=== PATIENT | male | born 1935 | race American Indian/Alaskan Native ===

== ENCOUNTER 2016-04-25 14:36 | Inpatient (IN) | payer MEDICARE, OTHER ==
[2016-04-25 14:50] VITALS: BMI 39.5
[2016-04-25 16:37] LABS: BASO # 0.01 K/mm3 (0.0-2.0); BASO % 0.3 % (0.0-3.0); EOS # 0.1 (0.0-0.7); EOS % 1.9 % (1.5-5.0); GRAN # 1.93 (1.4-6.5); GRAN % 62.8 % (50.0-68.0); LYMPH # 0.8 (1.2-3.4); LYMPH % 26.6 % (22.0-35.0); MEAN CELL VOLUME 87.7 fL (80.0-105.0); MEAN CORPUSCULAR HEMOGLOBIN 27.6 pg (25.0-35.0); MEAN CORPUSCULAR HGB CONC 31.5 g/dl (31.0-37.0); MEAN PLATELET VOLUME 9.9 fl (7.0-11.0); MONO # 0.3 (0.1-0.6); MONO % 8.4 % (1.0-6.0); RED CELL DISTRIBUTION WIDTH 19.6 % (11.5-14.5)
[2016-04-25 16:38] LABS: INR 1.56 (0.93-1.08); PARTIAL THROMBOPLASTIN TIME 31.5 Seconds (23.7-30.8)
[2016-04-25 16:39] LABS: ADD MANUAL DIFF? NO; PLATELET COUNT 60 10^3/uL (120.0-450.0)
[2016-04-25 16:40] LABS: WHITE BLOOD COUNT 3.1 10^3/ul (4.5-11.0)
[2016-04-25 16:46] LABS: URINE BILIRUBIN NEGATIVE (NEGATIVE); URINE BLOOD NEGATIVE (NEGATIVE); URINE GLUCOSE (UA) NEGATIVE (NEGATIVE); URINE KETONE NEGATIVE (NEGATIVE); URINE LEUKOCYTE ESTERASE NEGATIVE Leu/uL (NEGATIVE); URINE PROTEIN NEGATIVE mg/dL (<30 mg/dL); URINE UROBILINOGEN 0.2 E.U./dL (<1 E.U./dL)
--- NOTE | 2016-04-25 16:46 | ED PDOC ---
Arrival/HPI - History of Present Illness Time/Duration: Prior to Arrival, < week Symptom Course: Unchanged - General Chief Complaint: Lower Extremity Problem/Injury Time Seen by Provider: 04/25/16 15:06 - History of Present Illness Narrative History of Present Illness (Text): 04/25/16 16:22 This is an 80 year old male with a PMH notable for PVD, MD, CAD, DVT with IVC filter, cardiomyopathy, chronic LE ulcers, left fingers traumatic amputation presenting to the ED for swelling in his legs for the last 3 days. The patient notes that he routinely wears compression stockings, however, he has not worn them for the last 2 days. The patient reports that 3 days ago his legs were swollen and his compression stocking were wrapped around his ankles. The patient has a history of LE cellulitis and skin graft placement. He has been cared for by Dr. Hill. His senior clinical project manager is Dr. Holt. PMD: Dr. Wynn PMHx: PVD, MD, CAD, DVT with IVC filter, cardiomyopathy, chronic LE ulcers, left fingers traumatic amputation PSHx: IVC filter placement, left fingers amputation Family Hx: sister had lung cancer, no Hx of vascular disease Social: Former smoker of 30 years, stopped 8 years ago. Rarely consumes alcohol. Denies other drug use. 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 (Tyler Lopes ) Past Medical History - Provider Review Nursing Documentation Reviewed: Yes - Travel History Have you recently traveled outside [place] w/in the past 3 mons?: No - Infectious Disease Hx of Infectious Diseases: None - Tetanus Immunization Tetanus Immunization: Unknown - Cardiac Hx Cardiac Disorders: Yes Hx Congestive Heart Failure: Yes Hx Hypertension: Yes - Pulmonary Hx Respiratory Disorders: No Other/Comment: Former smoker - Neurological Hx Neurological Disorder: No - HEENT Hx HEENT Disorder: No - Renal Hx Renal Disorder: No - Endocrine/Metabolic Hx Endocrine Disorders: No - Hematological/Oncological Hx Blood Disorders: No Hx AIDS: No - Integumentary Hx Dermatological Disorder: Yes Other/Comment: BLE wounds - tx by Dr Hill - Musculoskeletal/Rheumatological Hx Falls: Yes - Gastrointestinal Hx Gastrointestinal Disorders: No - Genitourinary/Gynecological Hx Genitourinary Disorders: No Hx Reproductive Disorders: No - Psychiatric Hx Psychophysiologic Disorder: No Hx Substance Use: No - Surgical History Hx Amputation: Yes (tramatic left hand amputation) - Anesthesia Hx Anesthesia: Yes - Suicidal Assessment Feels Threatened In Home Enviroment: No - Patient History Narrative Patient History: This is an 80 year old male with a PMH notable for PVD, MD, CAD, DVT with IVC filter, cardiomyopathy, chronic LE ulcers, left fingers traumatic amputation presenting to the ED for swelling in his legs for the last 3 days. (Tyler Lopes) Family/Social History - Physician Review Nursing Documentation Reviewed: Yes Family/Social History: No Known Family HX Smoking Status: Former Smoker Hx Alcohol Use: Yes (2-3 SHOTS OF HARD LIQOUR DAILY H/O) Hx Substance Use: No Allergies/Home Meds Allergies/Adverse Reactions: Allergies No Known Allergies Allergy (Verified 04/25/16 14:45) Home Medications: Home Meds Medication Instructions Recorded Confirmed Amiodarone [Cordarone] 200 mg PO DAILY 07/30/15 04/25/16 Carvedilol [Coreg] 3.125 mg PO BID 07/30/15 04/25/16 Isosorbide Mononitrate [Isosorbide 60 mg PO DAILY 07/30/15 04/25/16 Mononitrate ER] Ammonium Lactate 12% [Lac-Hydrin 1 applic EXT DAILY 04/25/16 04/25/16 12% Lotion (225 g)] Enalapril Maleate [Vasotec] 5 mg PO DAILY 04/25/16 04/25/16 Ondansetron [Zofran] 4 mg PO PRN PRN 04/25/16 04/25/16 Warfarin [Coumadin] 5 mg PO 1800 04/25/16 04/25/16 oxyCODONE/Acetaminophen [Percocet 2.5 mg PO Q12 PRN 04/25/16 04/25/16 5/325 mg Tab] Review of Systems - Physician Review All systems were reviewed & negative as marked: Yes - Review of Systems Constitutional: absent: Fatigue, Weight Change, Fevers Eyes: absent: Vision Changes ENT: absent: Hearing Changes, Tinnitus Respiratory: absent: SOB, Cough, Wheezing Cardiovascular: Edema. absent: Chest Pain, Palpitations, Calf Pain, OROZCO, Syncope Gastrointestinal: absent: Abdominal Pain Neurological: absent: Headache, Dizziness Physical Exam Vital Signs Reviewed: Yes Temperature: Afebrile Blood Pressure: Hypotensive Pulse: Regular Respiratory Rate: Normal Appearance: Positive for: Well-Appearing, Non-Toxic Pain Distress: None Mental Status: Positive for: Alert and Oriented X 3 - Systems Exam Head: Present: Atraumatic, Normocephalic Pupils: Present: PERRL Extroacular Muscles: Present: EOMI. No: Entrapment Conjunctiva: Present: Normal. No: Injected Mouth: Present: Moist Mucous Membranes. No: Dry Respiratory/Chest: Present: Clear to Auscultation, Good Air Exchange. No: Respiratory Distress, Accessory Muscle Use, Rales Cardiovascular: Present: Normal S1, S2, Irregular Rhythm. No: Regular Rate and Rhythm, Murmurs Abdomen: Present: Normal Bowel Sounds. No: Tenderness, Distention, Peritoneal Signs Upper Extremity: Present: Normal Inspection, Edema (trace pitting edema). No: Cyanosis Lower Extremity: Present: Edema (3+ pitting edema distal to knee, 2+ pitting to the hip), Neurovascularly Intact. No: Normal Inspection, CALF TENDERNESS Neurological: Present: GCS=15, CN II-XII Intact, Speech Normal Skin: Present: Warm, Dry, Normal Color. No: Rashes Psychiatric: Present: Alert, Oriented x 3 Vital Signs Temp Pulse Resp BP Pulse Ox 04/25/16 19:28 88 17 108/61 97 04/25/16 17:07 112/54 L 04/25/16 16:56 111/66 04/25/16 16:40 90 116/60 100 04/25/16 14:46 97.6 F 90 18 98/58 L 97 Medical Decision Making - RAD Interpretation Sheep Killer: ED Physician, Radiologist - EKG Interpretation Interpreted by ED Physician: Yes Type: 12 lead EKG ED Course and Treatment: Patient Seen With Resident: In agreement with resident note which contains more details about the patient. Patient was seen and evaluated with resident. Came up with plan and treatment together. (Deep Jose DO) 04/25/16 16:53 Impression: This is an 80 year old male with a PMH notable for PVD, MD, CAD, DVT with IVC filter, cardiomyopathy, chronic LE ulcers, left fingers traumatic amputation presenting to the ED for swelling in his legs for the last 3 days. The patient clinically appears volume overloaded. Pitting edema in b/l LE. Differential: Edema CHF, Chronic Venous Insufficiency Plan: CBC, CMP, BNP EKG Lasix IV PT, PTT Prior Visits: 02/18/16- lung mass, syncope 02/24/16- MD, lung mass, snycope 01/26/16- Ankel ulcer, LE cellulitis 07/30/15- A-fib Progress Note: Patient seen and examined at bedside. The patient is volume overload. The patient was given a dose of IV lasix for volume overload correction. Initial CMP hemolized and pending re-peat. The patient's pressure has been borderline hypotensive. He will be monitored closely following the lasix administration. 04/25/16 18:03 Patient tolerated lasix well. Clinically stable at this time. Fluid restriction started. Patient found to have extensive DVT RLE. Therapeutic heparin started for bridge to therapeutic INR. Dr. Wynn is covered by the hospitalist team for admission. The resource coordinator was notified and the patient was admitted. Dr. Wynn is aware that his patient is admitted. ( Tyler Lopes) - Lab Interpretations Lab Results: 04/25/16 16:10 04/25/16 16:40 Lab Results 04/25/16 16:40: Sodium 136, Potassium 5.0, Chloride 102, Carbon Dioxide 26, Anion Gap 13, BUN 25 H, Creatinine 1.3, Est GFR ( Amer) > 60, Est GFR ( Non-Af Amer) 53, Random Glucose 91, Calcium 8.7, Total Bilirubin 0.6, AST 35, ALT 31, Alkaline Phosphatase 47, Lactate Dehydrogenase 846 H, Total Creatine Kinase 174, Troponin I < 0.01, NT-Pro-B Natriuret Pep 703 H, Total Protein 6.6, Albumin 3.4, Globulin 3.2, Albumin/Globulin Ratio 1.1 04/25/16 16:30: Urine Color Yellow, Urine Appearance Clear, Urine pH 6.0, Ur Specific [place] 1.010, Urine Protein Negative, Urine Glucose (UA) Negative, Urine Ketones Negative, Urine Blood Negative, Urine Nitrate Negative, Urine Bilirubin Negative, Urine Urobilinogen 0.2, Ur Leukocyte Esterase Negative 04/25/16 16:10: WBC 3.1 L D, RBC 3.08 L, Hgb 8.5 L, Hct 27.0 L, MCV 87.7, MCH 27.6, MCHC 31.5, RDW 19.6 H, Plt Count 60 L, MPV 9.9, Gran % 62.8, Lymph % (Auto ) 26.6, [place] % (Auto) 8.4 H, Eos % (Auto) 1.9, Baso % (Auto) 0.3, Gran # 1.93, Lymph # 0.8 L, [place] # 0.3, Eos # 0.1, Baso # 0.01, PT 16.8 H, INR 1.56 H, APTT 31.5 H - RAD Interpretation Narrative RAD Interpretations (Text): 04/25/16 17:00 HISTORY: CHF COMPARISON: Chest x-ray performed 02/19/16 TECHNIQUE: Chest, one view. FINDINGS: Examination limited by habitus, hypoinflation, and patient obliquity. LUNGS: No focal consolidation. Right perihilar mass previously described is not appreciated on the current examination. Please note that chest x-ray has limited sensitivity for the detection of pulmonary masses. PLEURA: No significant pleural effusion identified. No definite pneumothorax . CARDIOVASCULAR: Cardiomegaly. Atherosclerotic calcifications of the aorta. OSSEOUS STRUCTURES: Degenerative changes. VISUALIZED UPPER ABDOMEN: Unremarkable. OTHER FINDINGS: None. IMPRESSION: Cardiomegaly. 04/25/16 17:27 LE Duplex Veins: Left LE: No DVT Right LE: Extensive DTV (Tyler Lopes) Radiology Orders: 04/25/16 15:48 CHEST PORTABLE [RAD] Stat 04/25/16 16:47 DUPLEX LOWER EXTRM VEIN BILAT [US] Routine - EKG Interpretation EKG Interpretation (Text): 04/25/16 16:59 A-Fib, septal infarct age indetermined (Tyler Lopes) - Medication Orders Current Medication Orders: Enoxaparin Sodium (Lovenox) 120 mg SC Q12H PAT PRN Reason: Protocol Last Admin: 04/25/16 18:16 Dose: 120 MG Subcutaneous Administrations Document 04/25/16 18:16 SF (Rec: 04/25/16 18:17 SF [id number]) Injection Site MAR Injection Site Left Abdomen Charges for Administration # of Subcutaneous Administrations 1 Discontinued Medications Furosemide (Lasix) 40 mg IVP STAT STA Stop: 04/25/16 16:44 Last Admin: 04/25/16 16:56 Dose: 40 MG MAR Blood Pressure Document 04/25/16 16:56 SF (Rec: 04/25/16 16:56 SF [id number]) Blood Pressure Blood Pressure (100/60-150/90) 111/66 IVP Administration Document 04/25/16 16:56 SF (Rec: 04/25/16 16:56 SF [id number]) Charges for Administration # of IVP Administrations 1 Disposition/Present on Arrival - Present on Arrival Any Indicators Present on Arrival: Yes History of DVT/PE: Yes History of Uncontrolled Diabetes: No Urinary Catheter: No History of Decub. Ulcer: No History Surgical Site Infection Following: None - Disposition Have Diagnosis and Disposition been Completed?: Yes Disposition Time: 17:00 Patient Plan: Admission - Disposition Diagnosis: Edema extremities, Atrial fibrillation, DVT (deep venous thrombosis) Disposition: HOME/ ROUTINE Patient Problems: Current Active Problems Problem Status Diagnosed Atrial fibrillation Acute DVT (deep venous thrombosis) Acute Edema extremities Acute Condition: FAIR Discharge Instructions (ExitCare): Heart Failure (ED)
[2016-04-25 16:47] LABS: URINE APPEARANCE CLEAR (CLEAR); URINE COLOR YELLOW (YELLOW)
--- NOTE | 2016-04-25 16:50 | RAD ---
HISTORY: CHF COMPARISON: Chest x-ray performed 02/19/16 TECHNIQUE: Chest, one view. FINDINGS: Examination limited by habitus, hypoinflation, and patient obliquity. LUNGS: No focal consolidation. Right perihilar mass previously described is not appreciated on the current examination. Please note that chest x-ray has limited sensitivity for the detection of pulmonary masses. PLEURA: No significant pleural effusion identified. No definite pneumothorax . CARDIOVASCULAR: Cardiomegaly. Atherosclerotic calcifications of the aorta. OSSEOUS STRUCTURES: Degenerative changes. VISUALIZED UPPER ABDOMEN: Unremarkable. OTHER FINDINGS: None. IMPRESSION: Cardiomegaly.
[2016-04-25 17:17] LABS: ALB/GLOB RATIO 1.1 (1.1-1.8); ALKALINE PHOSPHATASE 47 U/L (38-133); ALT/SGPT 31 U/L (7-56); AST/SGOT 35 U/L (15-59); BILIRUBIN,TOTAL 0.6 mg/dL (0.2-1.3); BLOOD UREA NITROGEN 25 mg/dL (7-21); CALCIUM 8.7 mg/dL (8.4-10.5); CARBON DIOXIDE 26 mmol/L (21-33); CHLORIDE 102 mmol/L (98-107); GFR AFRICAN-AMERICAN > 60; GLUCOSE,RANDOM 91 mg/dL (70-110); SODIUM 136 mmol/L (132-148); TOTAL PROTEIN 6.6 g/dL (5.8-8.3)
[2016-04-25 17:48] LABS: TROPONIN I < 0.01 ng/mL
[2016-04-25] MEDS: Enoxaparin 120 mg Syringe SC SCH (18:16)
[2016-04-25] MEDS ORDERED: Sodium Chloride 0.9% 1,000 ML IV SCH (20:45)
--- NOTE | 2016-04-25 20:49 | CP.PCM.HP ---
<Dipak Weir - Last Filed: 04/26/16 00:19> History of Present Illness - History of Present Illness History of Present Illness: CC: Leg swelling x3 days HPI: This is an 80 yo AA M with PMH notable for PVD, IL 8 years prior, CAD, DVT with IVC filter, cardiomyopathy, chronic LE ulcers, and traumatic amputation of left fingers who presented to the ED for swelling in his legs x3 days. Per patient, he awoke 2 days ago to find his legs bilaterally swollen, despite keeping them raised at night, and was not able to pull up his compression stockings that he usually wears. He states the swelling was not present when he went to bed. The swelling has not progressed or improved over the last 2 days, so patient became anxious and presented to the ED. He denies shortness of breath, nausea, vomiting, dizziness, focal weakness, or pain in lower extremities. Does complain of some pain/discomfort along his right chest/flank region. He states he has never had LE swelling like this previously. 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 Wynn Present on Admission - Present on Admission Any Indicators Present on Admission: Yes History of DVT/PE: Yes History of Uncontrolled Diabetes: No Urinary Catheter: No Review of Systems - Constitutional Constitutional: absent: Chills, Fever, Weakness - EENT Eyes: absent: Blurred Vision, Change in Vision, Loss of Vision Ears: absent: Dizziness Nose/Mouth/Throat: absent: Dysphagia, Sore Throat, Neck Pain - Cardiovascular Cardiovascular: Chest Pain (soreness/discomfort along right inferior-lateral chest wall into right flank region). absent: Chest Pain with Activity, Dyspnea , Dyspnea on Exertion, Irregular Heart Rhythm, Pain Radiating to Arm/Neck/Jaw, Lightheadedness, Palpitations, Rapid Heart Rate, Syncope - Respiratory Respiratory: absent: Cough, Dyspnea, Hemoptysis, Pain on Inspiration - Gastrointestinal Gastrointestinal: absent: Abdominal Pain, Constipation, Diarrhea, Nausea, Vomiting - Genitourinary Genitourinary: Flank Pain (soreness/discomfort along right inferior-lateral chest wall into right flank region). absent: Difficulty Urinating, Dysuria, Hematuria - Musculoskeletal Musculoskeletal: Joint Swelling (bilaterally lower extremity edema from feet to above knees). absent: Neck Pain, Numbness, Radiating Pain into Limb - Integumentary Integumentary: Dry Skin, Skin Ulcer, Wounds (skin break on RLE posterior above heel). absent: Bleeding Lesions, Pruritus, Rash Additional comments: Skin changes, chronic, at baseline per patient - Neurological Neurological: absent: Dizziness, Numbness, Focal Weakness, Syncope, Weakness, Other Visual Disturbances - Psychiatric Psychiatric: absent: Anxiety - Endocrine Endocrine: absent: Fatigue, Palpitations Past Patient History - Infectious Disease Hx of Infectious Diseases: None - Tetanus Immunizations Tetanus Immunization: Unknown - Past Medical History & Family History Past Medical History?: Yes - Past Social History Smoking Status: Former Smoker - CARDIAC Hx Cardiac Disorders: Yes Hx Congestive Heart Failure: Yes Hx Hypertension: Yes - PULMONARY Hx Respiratory Disorders: No Other/Comment: Former smoker - NEUROLOGICAL Hx Neurological Disorder: No - HEENT Hx HEENT Problems: No - RENAL Hx Chronic Kidney Disease: No - ENDOCRINE/METABOLIC Hx Endocrine Disorders: No - HEMATOLOGICAL/ONCOLOGICAL Hx Blood Disorders: No Hx AIDS: No - INTEGUMENTARY Hx Dermatological Problems: Yes Other/Comment: BLE wounds - tx by Dr Hill - MUSCULOSKELETAL/RHEUMATOLOGICAL Hx Falls: Yes - GASTROINTESTINAL Hx Gastrointestinal Disorders: No - GENITOURINARY/GYNECOLOGICAL Hx Genitourinary Disorders: No Hx Reproductive Disorders: No - PSYCHIATRIC Hx Psychophysiologic Disorder: No Hx Substance Use: No - SURGICAL HISTORY Hx Amputation: Yes (tramatic left hand amputation) - ANESTHESIA Hx Anesthesia: Yes Meds Allergies/Adverse Reactions: Allergies Allergy/AdvReac Type Severity Reaction Status Date / Time No Known Allergies Allergy Verified 04/25/16 14:45 Physical Exam - Constitutional Appears: Well, Non-toxic, No Acute Distress - Head Exam Head Exam: ATRAUMATIC, NORMAL INSPECTION, NORMOCEPHALIC - Eye Exam Eye Exam: EOMI, Normal appearance. absent: Conjunctival injection, Scleral icterus Pupil Exam: absent: Irregular, Unequal - ENT Exam ENT Exam: Mucous Membranes Moist - Neck Exam Neck exam: Positive for: Full Rom. Negative for: Tenderness Additional comments: no JVD or hepatojugular reflex - Respiratory Exam Respiratory Exam: Clear to Auscultation Bilateral, NORMAL BREATHING PATTERN. absent: Accessory Muscle Use, Chest Wall Tenderness, Decreased Breath Sounds, Rales, Rhonchi, Wheezes, Respiratory Distress - Cardiovascular Exam Cardiovascular Exam: REGULAR RHYTHM, RRR, +S1, +S2. absent: Bradycardia, Tachycardia, Irregular Rhythm, JVD, +S4 - GI/Abdominal Exam GI & Abdominal Exam: Normal Bowel Sounds, Soft. absent: Diminished Bowel Sounds , Distended (obese, but not distended), Firm, Guarding, Hyperactive Bowel Sounds , Hypoactive Bowel Sounds, Organomegaly, Rigid, Tenderness - Rectal Exam Rectal Exam: Deferred - Extremities Exam Extremities exam: Positive for: joint swelling, pedal edema. Negative for: calf tenderness, normal capillary refill, normal inspection Additional comments: Bilateral lower extremity edema, R>L +3 pitting edema from feet to bottom 2/3rd of shins bilaterally, +2 from top 1/ 3rd of kirby to above knees Chronic skin changes along bilaterally lower extremities, darked/thickened patches of skin along bilateral posterior heels, dry and cracked skin throughout LEs Dressing covering skin break on RLE above ankle Shallow non-healing wound along anterior lateral portion of LLE above ankle, not actively bleeding or expressing discharge Unable to palpate pulses in bilateral LE - Back Exam Back exam: absent: CVA tenderness (L), CVA tenderness (R) - Neurological Exam Neurological exam: Alert, Oriented x3 Additional comments: Reports ambulating with cane, cane at bedside - Psychiatric Exam Psychiatric exam: Normal Affect, Normal Mood - Skin Skin Exam: Dry, Intact, Normal Color, Warm Additional comments: except as noted in Extremities exam Results - Vital Signs Recent Vital Signs: Last Vital Signs Temp 97.6 F 04/25/16 14:46 Pulse 88 04/25/16 19:28 Resp 17 04/25/16 19:28 BP 108/61 04/25/16 19:28 Pulse Ox 97 04/25/16 19:28 - Labs Result Diagrams: 04/25/16 16:10 04/25/16 16:40 Labs: Laboratory Results - last 24 hr 04/25/16 04/25/16 04/25/16 16:10 16:30 16:40 WBC 3.1 L D RBC 3.08 L Hgb 8.5 L Hct 27.0 L MCV 87.7 MCH 27.6 MCHC 31.5 RDW 19.6 H Plt Count 60 L MPV 9.9 Gran % 62.8 Lymph % (Auto) 26.6 [place] % (Auto) 8.4 H Eos % (Auto) 1.9 Baso % (Auto) 0.3 Gran # 1.93 Lymph # 0.8 L [place] # 0.3 Eos # 0.1 Baso # 0.01 PT 16.8 H INR 1.56 H APTT 31.5 H Sodium 136 Potassium 5.0 Chloride 102 Carbon Dioxide 26 Anion Gap 13 BUN 25 H Creatinine 1.3 Est GFR ( Amer) > 60 Est GFR (Non-Af Amer) 53 Random Glucose 91 Calcium 8.7 Total Bilirubin 0.6 AST 35 ALT 31 Alkaline Phosphatase 47 Lactate Dehydrogenase 846 H Total Creatine Kinase 174 Troponin I < 0.01 NT-Pro-B Natriuret Pep 703 H Total Protein 6.6 Albumin 3.4 Globulin 3.2 Albumin/Globulin Ratio 1.1 Urine Color Yellow Urine Appearance Clear Urine pH 6.0 Ur Specific [place] 1.010 Urine Protein Negative Urine Glucose (UA) Negative Urine Ketones Negative Urine Blood Negative Urine Nitrate Negative Urine Bilirubin Negative Urine Urobilinogen 0.2 Ur Leukocyte Esterase Negative Assessment & Plan - Assessment and Plan (Free Text) Assessment: This is an 80 yo AA M with PMH notable for PVD, IL 8 years prior, CAD, DVT with IVC filter, cardiomyopathy, chronic LE ulcers, and traumatic amputation of left fingers who presented to the ED for swelling in his legs x3 days. He was found to have extensive RLE DVT on US and is subtherapeutic on coumadin with an INR of 1.5. He is being admitted for persistent LE edema and RLE DVT requiring bridging anticoagulation until therapeutic on warfarin. Plan: 1) Bilateral LE edema -DVT vs Venous insufficiency vs arterial insufficiency vs CHF/fluid overload -Hx of PVD and LE ulcers, [facility] Dr[facility], will consult -Hx of DVT, elevated risk of coagulopathy given hx AFib and active metastatic cancer -LE US obtained noted extensive RLE DVT -INR subtherapeutic at 1.5, continue home warfarin and bridging with therapeutic (1mg/kg) Lovenox q12 -Platelets low at 60, may be 2/2 recent radiation therapy, Heme-onc consulted for recs on anticoagulation in the setting of low platetes -CTA to rule out PE -Lasix 40mg IV q12, 1x dose given in the ED; given borderline low-normal SBP, will gently hydrate with 50cc/hr NS to prevent hypotension while diuresing -Last Echo in 02/24/16, EF > 60% with normal LV fxn, will obtain repeat Echo to assess for possible new onset CHF -CXR obtained, poor visualization due to body habitus but does not appear to be fluid overloaded 2) CAD with prior [place] -continue home amlodipine and coreg, holding home imdur and vasotec due to low- normal blood pressures -repeat EKG and trop in AM 3) Afib subtherapeutic on Warfarin -continue home amlodipine and coreg -INR 1.5 in ED -Continuing home Warfarin, bridging with therapeutic Lovenox (1mg/kg) q12 -Given thrombocytopenia (platelets of 60), heme-onc consulted for anticoagulation recs 4) Thrombocytopenia -Platelets 60 on admission -Likely 2/2 radiation therapy -Type and screened, if develops acute bleed or platelets significantly decrease further, can consider transfusing platelets 5) Anemia -Hgb 8.5 on admission, baseline per prior charting is 10-11 -Stool occult ordered, f/u -Type and screened, if Hgb < 8 (due to pre-existing cardiovascular disease) can transfuse with pRBCs Dispo: Med/Surg as inpatient, pending input from Heme-onc and Podiatry, pending CTA, pending diuresis and further anticoagulation FEN: Heart-healthy low sodium, NS 50cc/hr Access: Peripheral IV Consults: Podiatry, Heme-onc Ppx: Avoid PPI/Pepcid due to thrombocytopenia, Warfarin/Therapeutic Lovenox covers for DVT Patient seen, reviewed, and discussed with attending, Dr. Guerra. - Date & Time Date: 04/26/16 Time: 00:19 Decision To Admit - Pt Status Changed To: Hospital Disposition Of: Inpatient Admission - Admit Certification Admit to Inpatient:: After my assessment, the patient will require hospitalization for at least two midnights. This is because of the severity of symptoms shown, intensity of services needed, and/or the medical risk in this patient being treated as an outpatient. - . Bed Request Type: Med/Surg <Petra Guerra - Last Filed: 04/26/16 05:57> Results - Vital Signs Recent Vital Signs: Last Vital Signs Temp 97.9 F 04/25/16 22:05 Pulse 96 H 04/25/16 22:05 Resp 18 04/25/16 23:17 BP 118/65 04/25/16 22:56 Pulse Ox 97 04/25/16 22:05 - Labs Result Diagrams: 04/25/16 16:10 04/25/16 16:40 Labs: Laboratory Results - last 24 hr 04/25/16 04/25/16 22:15 23:30 Blood Type A POSITIVE Blood Type Confirm A POSITIVE Antibody Screen Negative BBK History Checked No verified bt Attending/Attestation - Attestation I have personally seen and examined this patient.: Yes I have fully participated in the care of the patient.: Yes I have reviewed all pertinent clinical information: Yes Notes (Text): 04/26/16 05:56 Patient was seen when he was in bed # 6 in the ER. Agree with history , physical examination, assessment and plan.
[2016-04-25] MEDS ORDERED: Iohexol 350 MG/100 ML VIAL ONE (21:37)
[2016-04-25] MEDS: Oxycodone/Acetaminophen 5/325 mg Tab PO PRN (23:15)
--- NOTE | 2016-04-26 00:46 | CT ---
EXAM: CT Angiography Chest With Intravenous Contrast. CLINICAL HISTORY: 80 years old, male; Pain; Chest pain; Type not specified; Additional info: Dvt, subtherapteutic inr, right chest discomfort TECHNIQUE: Axial computed tomographic angiography images of the chest with intravenous contrast using pulmonary embolism protocol. This CT exam was performed using one or more of the following dose reduction techniques: automated exposure control, adjustment of the mA and/or kV according to patient size, and/or use of iterative reconstruction technique. MIP reconstructed images were created and reviewed. Coronal and sagittal reformatted images were created and reviewed. CONTRAST: 96 mL of OMNI 350 administered intravenously. COMPARISON: CT GUIDED LUNG BIOPSY 02/19/2016 5:20:17 PM FINDINGS: Pulmonary arteries: No evidence for large or central pulmonary embolism. Motion artifact and suboptimal opacification limits evaluation of smaller branches. Aorta: Thoracic aorta is atherosclerotic and mildly tortuous without aneurysm. Mild calcification of the aortic root. Lungs: There is a large mass within the superior aspect of the right lower lobe, measuring at least 7.2 x 5.0 CM on series 2, image 77. The mass measures at least 5.4 CM craniocaudal as well. There is associated destruction of the right sixth and seventh ribs as well as portions of the right sides of the right sixth and seventh thoracic vertebral bodies and the right-sided posterior elements. The possibility of invasion of the thoracic spinal canal at these levels cannot be excluded. Remainder of the lungs is clear. Pleural space: Unremarkable. No significant effusion. No pneumothorax. Heart: The heart is mildly enlarged. There is coronary artery calcification. Mild calcification of the mitral valve. No significant pericardial effusion. Mediastinum: The esophagus is normal. Thyroid: The thyroid is normal in size and position. Bones/joints: There are moderate to severe degenerative spine changes. Soft tissues: Unremarkable. Lymph nodes: There is no axillary adenopathy. No mediastinal or hilar adenopathy. Upper abdomen: Scans through the upper abdomen demonstrate no definite acute abnormalities. IMPRESSION: 1. There is a large mass within the superior aspect of the right lower lobe, measuring at least 7.2 x 5.0 CM on series 2, image 77. The mass measures at least 5.4 CM craniocaudal as well. There is associated destruction of the right sixth and seventh ribs as well as portions of the right sides of the right sixth and seventh thoracic vertebral bodies and the right-sided posterior elements. The possibility of invasion of the thoracic spinal canal at these levels cannot be excluded. 2. No evidence for large or central pulmonary embolism. Motion artifact and suboptimal opacification limits evaluation of smaller branches. 3. Additional incidental and/or chronic findings as described.
[2016-04-26] MEDS: Enoxaparin 120 mg Syringe SC SCH ×2 (05:23→17:28)
[2016-04-26 07:17] LABS: EOS # 0.1 (0.0-0.7); EOS % 2.3 % (1.5-5.0); GRAN % 60.8 % (50.0-68.0); HEMATOCRIT 27.7 % (42.0-52.0); LYMPH # 0.8 (1.2-3.4); LYMPH % 28.5 % (22.0-35.0); MEAN CELL VOLUME 87.1 fL (80.0-105.0); MEAN CORPUSCULAR HEMOGLOBIN 27.7 pg (25.0-35.0); MEAN CORPUSCULAR HGB CONC 31.8 g/dl (31.0-37.0); MEAN PLATELET VOLUME 9.7 fl (7.0-11.0); MONO # 0.2 (0.1-0.6); MONO % 8.4 % (1.0-6.0); PLATELET COUNT 70 10^3/uL (120.0-450.0); RED CELL DISTRIBUTION WIDTH 19.4 % (11.5-14.5)
[2016-04-26 07:27] LABS: INR 1.48 (0.93-1.08); PARTIAL THROMBOPLASTIN TIME 37.9 Seconds (23.7-30.8)
[2016-04-26 07:33] LABS: WHITE BLOOD COUNT 2.6 10^3/ul (4.5-11.0)
[2016-04-26 07:34] LABS: ADD MANUAL DIFF? NO
[2016-04-26 08:11] LABS: ALKALINE PHOSPHATASE 55 U/L (38-133); ALT/SGPT 33 U/L (7-56); AST/SGOT 33 U/L (15-59); BILIRUBIN,TOTAL 0.9 mg/dL (0.2-1.3); BLOOD UREA NITROGEN 23 mg/dL (7-21); CALCIUM 8.6 mg/dL (8.4-10.5); CARBON DIOXIDE 25 mmol/L (21-33); CHLORIDE 102 mmol/L (98-107); GFR AFRICAN-AMERICAN > 60; GLUCOSE,RANDOM 98 mg/dL (70-110); MAGNESIUM 2.1 mg/dL (1.7-2.2); PHOSPHOROUS 4.9 mg/dL (2.5-4.5); POTASSIUM 4.4 mmol/L (3.6-5.0); SODIUM 138 mmol/L (132-148); TOTAL PROTEIN 6.7 g/dL (5.8-8.3)
[2016-04-26 08:24] LABS: TROPONIN I < 0.01 ng/mL
[2016-04-26 08:45] LABS: RETIC% 2.08 % (0.5-1.5)
[2016-04-26 08:51] LABS: IRON 79 ug/dL (45-180)
--- NOTE | 2016-04-26 09:52 | CARD ---
APPROVED REPORT EKG Measurement Heart [id number] <Conclusion> Atrial fibrillation Septal infarct, age undetermined No change
--- NOTE | 2016-04-26 13:01 | CARD ---
APPROVED REPORT EKG Measurement Heart [id number] <Conclusion> Atrial fibrillation Septal infarct, age undetermined Abnormal ECG
[2016-04-26 14:01] LABS: FOLATE 8.4 ng/mL
[2016-04-26] MEDS: Oxycodone/Acetaminophen 5/325 mg Tab PO PRN (14:11)
[2016-04-26] MEDS ORDERED: Gadodiamide 287 MG/ML VIAL (15ML) IV ONE (16:13)
[2016-04-26] MEDS: Ammonium Lactate 12% Lotion (225 g) EXT SCH (17:29)
--- NOTE | 2016-04-26 17:39 | MRI ---
PROCEDURE: MR THORACIC SPINE WITH AND WITHOUT CONTRAST HISTORY: history of lung CA, r/o spinal cord compression COMPARISON: Comparison is made to the previous CT of the chest dated 04/25/2016 TECHNIQUE: Multiecho multiplanar sequences were performed through the thoracic spine with and without the use of intravenous contrast. FINDINGS: ALIGNMENT: [id number] thoracic spine kyphosis centered at T8-T9. No evidence of subluxation. VERTEBRA: Vertebral body height are preserved. Large foci of bony destruction R seen at the right aspect of T5-T6 and T7. Bony destruction extending to the adjacent right ribs at the mid thoracic spine. No evidence of significant spinal stenosis or cord compression. MARROW: Large destructive bony lesion at the right aspect of T5-T6 and T7 suggestive of metastasis likely from the patient's known lung cancer. PARASPINAL SOFT TISSUES: Paraspinal soft tissue mass lesions seen at the right aspect of the mid thoracic spine at the level of T5-T7 CORD: No MRI evidence of cord compression DISCS: Moderate to severe degenerative changes more prominent at the mid thoracic spine P ENHANCEMENT: Large enhancing mass lesion at the right aspect of the mid thoracic spine extending from T4-T7 and associated with destruction of the right aspect of T5-T6 and T7 vertebral bodies and pedicles. The enhancing mass lesion extending to the right paraspinal muscle and right chest. OTHER FINDINGS: None. IMPRESSION: No MRI evidence of cord compression. Large destructive enhancing mass lesion at the right aspect of the mid thoracic spine extending from T5 to T7 and extending to the right paraspinal soft tissue and right chest highly suggestive of malignant neoplasm likely primary or secondary lung cancer. Moderate to mildly severe degenerative disc changes.
--- NOTE | 2016-04-26 18:12 | PN ---
DATE: 04/26/2016 This is an 80-year-old male known to me, seen for lower extremity ulcer. The patient states that his legs started swelling. He did come in to the hospital to see what was causing the swelling in his l egs and his venous Doppler was positive for a right DVT. The patient is being worked up for PE. The patient also was sent for thoracic spine MRI. He does have a large hilar mass which was noted on th e last hospital admission. There is noted bony destruction extending through the ribs to the midthor acic spine with mild to moderate severe degenerative disk changes. PHYSICAL EXAMINATION: The patient's lower extremities were evaluated. He has nonpalpable pedal puls es secondary to swelling. He has +4 edema to the right lower extremity. He has +3 edema to the left lower extremity. The left lower extremity has secondary skin changes; however, there are no active openings. His right lower extremity does have openings, multiple small openings with some drainage c oming from them on the medial ankle area. There is no fluctuance or sinus tract to bone. VITAL SIGNS: Show that he has a temperature of 97.8 and his blood pressure is 100/66. LABORATORY DATA: Reviewed. His white blood cell count is down to 2.6. His H and H are 8.8 and 27.7 , and the platelets are 70. The patient's chemistry shows a BUN and creatinine of 23 and 1.2. His g lucose was 98. ASSESSMENT: Edema to the bilateral lower extremities with a deep venous thrombosis to the right lowe r extremity and new openings. PLAN OF TREATMENT: The wounds were cleansed with saline. Culture and sensitivity was taken. Maxorb was placed over the wounds with a dry sterile dressing and Fran wraps were bilateral. The patient is to elevate his legs. He will be seen in followup. Mary Hill DPM cc: [id number] TT: 04/26/2016 18:11:41 Confirmation # [id number] Dictation # [id number] aura
--- NOTE | 2016-04-26 20:17 | US ---
HISTORY: Leg pain and swelling. Evaluate for DVT PHYSICIAN(S): Rosas Brown MD. TECHNIQUE: Duplex sonography and color-flow Doppler with graded compression were used to evaluate the deep venous systems of both lower extremities. The exam is very limited by body habitus and edema. FINDINGS: There is extensive hypoechoic acute occlusive thrombus in the right femoral and popliteal veins. Adherent partially occlusive thrombus is noted in the right common femoral vein. There is no sonographic evidence for deep venous thrombosis the visualized segments of the left lower extremity. The tibial veins are not adequately evaluated. IMPRESSION: Extensive hypoechoic acute thrombus in the right common femoral vein, femoral vein, and popliteal vein. Limited study.
[2016-04-27] MEDS: Enoxaparin 120 mg Syringe SC SCH ×2 (05:57→17:21)
[2016-04-27] MEDS: Oxycodone/Acetaminophen 5/325 mg Tab PO PRN ×2 (07:55→23:56)
--- NOTE | 2016-04-27 09:45 | CP.PCM.PN ---
<Demi Hernandez - Last Filed: 04/27/16 12:58> Subjective - Date & Time of Evaluation Date of Evaluation: 04/27/16 Time of Evaluation: 07:00 - Subjective Subjective: Patient seen and examined at bedside. No acute events overnight. Patient was sitting comfortably at bedside. Patient reports his bilateral LE swelling is about the same as yesterday. He complains of right sided back pain, but it is well controlled with pain medication. Denies headache, fever, chills, chest pain , shortness of breath, nausea, vomiting, diarrhea, or constipation. Patient's sister spoken over the phone, she mentioned patient received chemo at [facility]. Sister also reports patient was recently evaluated by Neurosurgeon there and told be wear a brace for the back pain. Sister will call back to provide name and contact information of radiation oncologist. Objective - Vital Signs/Intake and Output Vital Signs (last 24 hours): Temp Pulse Resp BP Pulse Ox 97.7 F 82 20 105/60 99 04/27/16 07:30 04/27/16 07:30 04/27/16 07:30 04/27/16 07:30 04/27/16 07:30 Intake and Output: 04/27/16 04/27/16 06:59 18:59 Intake Total 900 0 Output Total 1680 1680 Balance -780 -1680 - Medications Medications: Current Medications Amiodarone HCl (Cordarone) 200 mg PO DAILY [facility] Last Admin: 04/26/16 09:36 Dose: 200 mg Carvedilol (Coreg) 3.125 mg PO BID [facility] Last Admin: 04/26/16 17:36 Dose: 3.125 mg Enoxaparin Sodium (Lovenox) 120 mg SC Q12H PAT PRN Reason: Protocol Last Admin: 04/27/16 05:57 Dose: 120 mg Furosemide (Lasix) 40 mg IVP Q12 [facility] Last Admin: 04/26/16 22:33 Dose: 40 mg Lactic Acid (Lac-Hydrin 12% Lotion (225 G)) 0 gm EXT DAILY [facility] Last Admin: 04/26/16 17:29 Dose: 1 appl Ondansetron HCl (Zofran Tab) 4 mg PO Q6H PRN PRN Reason: Nausea/Vomiting Last Admin: 04/27/16 07:56 Dose: 4 mg Oxycodone/Acetaminophen (Percocet 5/325 Mg Tab) 1 tab PO Q12 PRN PRN Reason: Pain, moderate (4-7) Stop: 04/28/16 21:09 Last Admin: 04/27/16 07:55 Dose: 1 tab Warfarin Sodium (Coumadin) 5 mg PO 1800 PAT PRN Reason: Protocol Last Admin: 04/26/16 17:37 Dose: 5 mg - Labs Labs: 04/26/16 07:04 04/26/16 07:04 PT 16.0 Seconds (9.9-11.8) H 04/26/16 07:04 INR 1.48 (0.93-1.08) H 04/26/16 07:04 APTT 37.9 Seconds (23.7-30.8) H 04/26/16 07:04 - Constitutional Appears: Non-toxic, No Acute Distress, Chronically Ill - Head Exam Head Exam: ATRAUMATIC, NORMAL INSPECTION - Eye Exam Eye Exam: Normal appearance, PERRL Pupil Exam: PERRL - ENT Exam ENT Exam: Mucous Membranes Moist - Neck Exam Neck Exam: Normal Inspection - Respiratory Exam Respiratory Exam: Clear to Ausculation Bilateral, NORMAL BREATHING PATTERN. absent: Wheezes, Respiratory Distress - Cardiovascular Exam Cardiovascular Exam: REGULAR RHYTHM, +S1, +S2. absent: Murmur - GI/Abdominal Exam GI & Abdominal Exam: Soft, Normal Bowel Sounds. absent: Tenderness, Rebound - Extremities Exam Extremities Exam: Joint Swelling, Pedal Edema Additional comments: Bilateral lower extremity edema, +2 pitting edema. Chronic skin changes along bilaterally lower extremities, darked/thickened patches of skin along bilateral posterior heels, dry and cracked skin throughout LE. ELDER wrapped by podiatry. No signs of drainage. - Neurological Exam Neurological Exam: Alert, Awake, Oriented x3 - Psychiatric Exam Psychiatric exam: Normal Affect, Normal Mood - Skin Skin Exam: Dry, Warm Assessment and Plan - Assessment and Plan (Free Text) Assessment: This is an 80 yo AA M with PMH notable for PVD, AL 8 years prior, CAD, DVT with IVC filter, cardiomyopathy, chronic LE ulcers, and traumatic amputation of left fingers who presented to the ED for swelling in his legs x3 days. He was found to have extensive RLE DVT on US and is subtherapeutic on coumadin with an INR of 1.5. He is being admitted for persistent LE edema and RLE DVT requiring bridging anticoagulation until therapeutic on warfarin. Bilateral LE edema -DVT vs Venous insufficiency vs arterial insufficiency vs CHF/fluid overload -Hx of PVD and LE ulcers, [facility] Hill consulted -Hx of DVT, elevated risk of coagulopathy given hx AFib and active metastatic cancer -LE US obtained noted extensive RLE DVT -INR subtherapeutic at 1.25, continue home warfarin and bridging with therapeutic (1mg/kg) Lovenox q12 -CTA no evidence of PE -Lasix 40mg IV q12 -Last Echo in 02/24/16, EF > 60% with normal LV fxn -CXR obtained, poor visualization due to body habitus but does not appear to be fluid overloaded -Wound culture grew Gram negative rods Mid thoracic mass lesion 2/2 to lung CA metastasis -MRI chest showed no evidence of cord compression. Large destructive mass lesion at the right aspect of the mid thoracic spine from T5 to T7 extending to the right paraspinal soft tissue highly suggestive of malignant neoplasm (see full report). -Will obtain medical records from [facility], pending contact info from sister -Radiation Oncology Dr. Mcbride, help appreciated -Percocet q12 prn -Zofran 4mg q6 prn CAD with prior AL -continue home amlodipine and coreg, holding home imdur and vasotec due to low- normal blood pressures -repeat EKG and trop in AM Afib subtherapeutic on Warfarin -continue home amlodipine and coreg -INR 1.5 in ED -Continuing home Warfarin, bridging with therapeutic Lovenox (1mg/kg) q12 -Heme/onc consulted for anticoagulation recs Thrombocytopenia -Platelets 60 on admission, 71 today -Likely 2/2 radiation therapy -Type and screened, if develops acute bleed or platelets significantly decrease further, can consider transfusing platelets -Follow Heme/onc recommendations Anemia -Hgb 8.5 on admission, today 9.5 (10-11 baseline) -Stool occult positive -Type and screened on admission Prophylactic measures -Avoid PPI/Pepcid due to thrombocytopenia -Warfarin/Therapeutic Lovenox covers for DVT <Lorenzo CUBA,Dimas - Last Filed: 04/27/16 16:30> Objective - Vital Signs/Intake and Output Vital Signs (last 24 hours): Temp Pulse Resp BP Pulse Ox 97.7 F 82 20 125/77 99 04/27/16 07:30 04/27/16 07:30 04/27/16 07:30 04/27/16 10:52 04/27/16 07:30 Intake and Output: 04/27/16 04/27/16 06:59 18:59 Intake Total 900 640 Output Total 1680 1680 Balance -780 -1040 - Medications Medications: Current Medications Amiodarone HCl (Cordarone) 200 mg PO DAILY [facility] Last Admin: 04/27/16 10:47 Dose: 200 mg Carvedilol (Coreg) 3.125 mg PO BID [facility] Last Admin: 04/27/16 10:47 Dose: 3.125 mg Cyanocobalamin (Vitamin B12 1000 Mcg/Ml Inj) 1,000 mcg IM DAILY [facility] Stop: 05/01/16 10:30 Last Admin: 04/27/16 10:47 Dose: 1,000 mcg Enoxaparin Sodium (Lovenox) 120 mg SC Q12H PAT PRN Reason: Protocol Last Admin: 04/27/16 05:57 Dose: 120 mg Furosemide (Lasix) 40 mg IVP Q12 [facility] Last Admin: 04/27/16 10:52 Dose: 40 mg Iron Sucrose 100 mg/ Sodium (Chloride) 105 mls @ 210 mls/hr IV DAILY [facility] Stop: 05/02/16 10:31 Last Admin: 04/27/16 12:27 Dose: 210 mls/hr Levofloxacin/Dextrose (Levaquin 500mg) 100 mls @ 100 mls/hr IVPB DAILY [facility] Lactic Acid (Lac-Hydrin 12% Lotion (225 G)) 0 gm EXT DAILY [facility] Last Admin: 04/27/16 10:52 Dose: 1 appl Ondansetron HCl (Zofran Tab) 4 mg PO Q6H PRN PRN Reason: Nausea/Vomiting Last Admin: 04/27/16 07:56 Dose: 4 mg Oxycodone/Acetaminophen (Percocet 5/325 Mg Tab) 1 tab PO Q12 PRN PRN Reason: Pain, moderate (4-7) Stop: 04/28/16 21:09 Last Admin: 04/27/16 07:55 Dose: 1 tab Warfarin Sodium (Coumadin) 5 mg PO 1800 [facility] PRN Reason: Protocol Last Admin: 04/26/16 17:37 Dose: 5 mg - Labs Labs: 04/27/16 09:45 04/26/16 07:04 PT 13.4 Seconds (9.9-11.8) H 04/27/16 09:45 INR 1.24 (0.93-1.08) H 04/27/16 09:45 APTT 37.9 Seconds (23.7-30.8) H 04/26/16 07:04 Attending/Attestation - Attestation I have personally seen and examined this patient.: Yes I have fully participated in the care of the patient.: Yes I have reviewed all pertinent clinical information, including history, physical exam and plan: Yes Notes (Text): Patient was seen and examined with ophthalmic medical technician .Agreed with resident assessment and plan. 80 Yrs male with metastatic lung disease, thoracic mass, with no evidence of spinal cord compression, no focal deficit.Patient MRI finding were discussed with patient daughter who said the patient was evaluated by Neurosurgery this month for the same mass and Brace was recommended.Patient record from [facility] radiation oncology was reviewed. Patient leg swelling is improving. Wound cultures growing gram negative edwin, on levaquin, will follow up cultures. Patient INR is not therapeutic, on bridging lovenox, can be left on lovenox only as patient has malignancy and has DVT, need life long anticoagulation. Thrombocytopenia is stable. Hemoglobin is stable. Prognosis is guarded. Patient is DNR and DNI. Management plan was discussed in detail with patient Education was provided.
[2016-04-27 09:51] LABS: ADD MANUAL DIFF? NO
[2016-04-27 09:54] LABS: BASO # 0.01 K/mm3 (0.0-2.0); BASO % 0.5 % (0.0-3.0); EOS # 0.1 (0.0-0.7); EOS % 3.2 % (1.5-5.0); GRAN # 1.35 (1.4-6.5); GRAN % 61.1 % (50.0-68.0); HEMATOCRIT 29.7 % (42.0-52.0); LYMPH # 0.6 (1.2-3.4); LYMPH % 27.1 % (22.0-35.0); MEAN CELL VOLUME 86.8 fL (80.0-105.0); MEAN CORPUSCULAR HEMOGLOBIN 27.8 pg (25.0-35.0); MEAN PLATELET VOLUME 9.8 fl (7.0-11.0); MONO # 0.2 (0.1-0.6); MONO % 8.1 % (1.0-6.0); PLATELET COUNT 71 10^3/uL (120.0-450.0); RED CELL DISTRIBUTION WIDTH 18.9 % (11.5-14.5)
[2016-04-27 09:58] LABS: WHITE BLOOD COUNT 2.2 10^3/ul (4.5-11.0)
[2016-04-27 10:04] LABS: INR 1.24 (0.93-1.08)
[2016-04-27] MEDS ORDERED: Darbepoetin Alfa 100 mcg/ml Inj SC ONE (10:30)
[2016-04-27] MEDS: Ammonium Lactate 12% Lotion (225 g) EXT SCH (10:52)
--- NOTE | 2016-04-27 13:24 | PN ---
DATE: 04/27/2016 An 80-year-old male seen at bedside for continued evaluation and management of bilateral lower extrem ity edema with deep vein thrombosis to the right lower extremity with associated venous stasis ulcera tions. The patient states he is feeling much better and is not having as much trouble breathing at t his point. The patient is reporting no pain in either lower extremity. VITAL SIGNS: Reveal a temperature of 97.7, pulse rate of 82, blood pressure 105/60, and respiratory rate of 20. LABORATORY FINDINGS: Reveal a white cell count of 2.2, hemoglobin of 9.5, hematocrit of 29.7, platel et count of 71. Cultures of the right lower leg ulcerations reveal gram-negative rods of moderate gr owth preliminarily. OBJECTIVE: The patient has nonpalpable pedal pulses noted bilaterally secondary to edema. There is noted to be +4 edema on the right lower extremity and +3 edema on the left lower extremity. There is noted to be numerous superficial openings with minimal serous drainage on the right lower leg and at the medial ankle region. There is no purulence. There are no signs of abscess formation or trackin g to bone. Left lower extremity presents with edema and secondary trophic changes from peripheral va scular disease. PLAN AND TREATMENT: The patient's wounds were cleansed with normal sterile saline. Culture and sens itivity was reviewed. We will continue with antibiotics as per infectious disease. Maxorb was place d over all the superficial ulcerations on the right lower leg and Fran wraps were applied. The patien t was told to continue elevating legs at all times and refrain from sitting in a chair for long perio ds of time. He was encouraged to walk. The patient will be seen and followed daily. Eric Godinez DPM cc: [id number] TT: 04/27/2016 13:23:42 Confirmation # [id number] Dictation # [id number] kaila
--- NOTE | 2016-04-27 15:21 | CON ---
DATE: 04/27/2016 REASON FOR CONSULTATION: Known squamous cell lung carcinoma. HISTORY OF PRESENT ILLNESS: The patient is an 80-year-old male with past medical history significant for multiple medical problems including peripheral vascular disease, atrial fibrillation, NC, parham ry artery disease, DVT with IVC filter, cardiomyopathy, chronic lower extremity ulcers and known squa mous cell carcinoma of the lung. The patient was initially seen by me several months ago, at which p aldo he decided to seek another opinion at [facility] and has been getting radiation palliati vely to the chest and was awaiting starting immunotherapy, but since then he developed progressive lo wer extremity swelling and was admitted and is noted to have recurrent DVTs. He denies any cough at this point. No hemoptysis. Does have some back pain as well as bilateral lower extremity pain. His swelling is still persistent, but decreasing over the last few days. He denies any fevers or chills . No shortness of breath. PAST MEDICAL HISTORY: As above, peripheral vascular disease, atrial fibrillation, NC, CAD, DVT, IVC filter. FAMILY HISTORY: A sister had lung cancer, no history of vascular disease. SOCIAL HISTORY: Positive for smoking for the last 30 years, stopped 8 years ago. He is a social alc ohol abuser. Denies IV drug abuse. 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 MEDICATIONS: As per the MAR. ALLERGIES: There are no known drug allergies. PHYSICAL EXAMINATION: VITAL SIGNS: Reveal a temperature of 97.7, pulse of 82, respiratory rate of 20 and a blood pressure 105/60. GENERAL: The patient is an elderly male sitting up in bed, in no acute distress. HEENT: Normocephalic, atraumatic. EYES: Pupils equal, round, reactive to light and accommodation. Extraocular muscles are intact. NECK: Supple with no adenopathy, no JVD, no thyromegaly. LUNGS: Clear to auscultation bilaterally with no rales or rhonchi. CARDIOVASCULAR: S1, S2 is heard. ABDOMEN: Positive bowel sounds, soft, nontender, nondistended, no organomegaly is palpated. EXTREMITIES: There is bilateral lower extremity swelling as well as erythema and chronic venous micaela is changes. LABORATORY DATA: His white count is 2.2, hemoglobin 9.5, hematocrit of 29.7, MCV of 86.8 and a plate let count of 71,000. His ANC is 1.3. Chemistries are within normal limits. Iron is 120, BUN and cr eatinine are 23 and 1.2. B12 is 337. Folate is 8.4. ASSESSMENT AND PLAN: Elderly male with a large destructive right paraspinal soft tissue lesion exten ding from T5-T7, also extending into the ribs. He is not a candidate for surgery. He has undergone palliative radiation at [facility] and currently is awaiting starting immunotherapy over ther e. Continue management of his DVT. He will need some sort of anticoagulation once he is discharged. Currently on Lovenox; would have to continue Lovenox as an outpatient as well as warfarin as it is going to be hard to monitor in this patient. I will discuss with his primary oncologist. Thank you for the consult. We will follow. Ann Marie Mack MD cc: [id number] TT: 04/27/2016 15:20:52 Confirmation # [id number] Dictation # [id number] aura
--- NOTE | 2016-04-27 15:32 | CON ---
DATE: 04/27/2016 INDICATIONS: Edema. HISTORY OF PRESENT ILLNESS: This is an 80-year-old man well known to me, admitted on 04/25 with increasing lower extremity edema. He has lung cancer and had recently undergone radiation therapy at . There is metastatic lung disease to the spine and ribs. Apparently, the diuretic medications dropped off his pharmacy list, he developed increasing swelling, and was admitted to the hospital after presenting to the Emergency Room. Today he is resting comfortably in bed. He still has lower extremity edema which is chronic. His legs are wrapped with Fran bandages. There is no chest pain, shortness of breath, orthopnea, PND, syncope, presyncope , light-headedness, dizziness, vertigo, palpitations, fever, chills, cough, sputum production, hemoptysis, abdominal pain, nausea, vomiting, diarrhea, constipation, or melena. His past medical history is notable for chronic edema. He has a history of remote myocardial infarction, but an echocardiogram recently shows normal LV function with mild MR, TR, and moderate pulmonary hypertension. He has a history of chronic atrial fibrillation on warfarin therapy. 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 MEDICATIONS AT THIS TIME: Include Aranesp, amiodarone, Coreg, warfarin, furosemide, Lovenox, vitamin B12, Zofran, oxycodone. There are no known medication allergies. He continues to smoke occasionally. He does not drink alcohol significantly. He lives at home. His daughters support him. FAMILY HISTORY: Noncontributory. A 10-point review of systems is otherwise unremarkable except as noted above. On physical examination, he is a well-developed male sitting on his bed on 5R in no acute distress. VITAL SIGNS: Unremarkable. Pulse is 82, he is afebrile, blood pressure 105/60 , respirations 20, O2 sat 99% on room air. HENT EXAMINATION: Reveals neck vein distention, but no thyromegaly or carotid bruit. Mucous membranes moist. Conjunctivae pink. NECK: Supple. LUNG CHAVES: Clear. EXAMINATION OF THE HEART: Revealed an irregular rhythm, normal 1st and 2nd heart sounds. PMI is not palpable. ABDOMEN: Soft, bowel sounds present. No mass, organomegaly, tenderness, rebound, guarding, CVA tenderness, or palpable abdominal aortic aneurysm. EXTREMITY EXAMINATION: Revealed no cyanosis or clubbing. The lower extremities are wrapped with Fran bandages. They are swollen. NEUROLOGICALLY: He is awake, alert, and oriented. PSYCHIATRIC: Normal as to mood and affect. SKIN: Warm and dry, except for the lower extremities where there is some weeping wounds. LABORATORY AND IMAGING: A chest x-ray on 04/25 demonstrates cardiomegaly. EKG demonstrates atrial fibrillation, nonspecific ST wave changes, septal infarct, unchanged from previous EKG. Extremity ultrasound reveals extensive acute thrombus in the right common femoral vein, femoral vein, and popliteal vein. A CT scan of the chest reveals no evidence of a central pulmonary embolism. The lung mass is again demonstrated. A thoracic spine MRI is noted. It demonstrates a large, destructive enhancing mass lesion at the right aspect of the mid-thoracic spine extending from T5-T7, and extending to the right parasternal soft tissue, and right chest, etc. White count 2200, hemoglobin 9.5, hematocrit 29.7, platelet count 71,000. PT 13.4, INR 1.24, PTT 37.9. Electrolytes, BUN, creatinine, blood sugar unremarkable. LFTs unremarkable. CK 174. Troponins less than 0.01 twice. BNP 703, B12 and folate normal. IMPRESSION: The patient is an 80-year-old man with metastatic lung cancer status post radiation therapy at , with known venous insufficiency, who presents with increased swelling and evidence of deep vein thrombosis as described. At this time he is getting IV Lasix. He is on Lovenox. Warfarin is being given , although he is subtherapeutic. I would monitor I's and O's, continue IV Lasix and elevate legs. He is getting podiatric treatment. He will have oncology followup. I will follow along with you. I will make additional recommendations based on his clinical course. Overall, a conservative course of cardiac treatment is anticipated. Bryce Holt MD cc: [id number] TT: 04/27/2016 15:32:15 Confirmation # [id number] Dictation # [id number] gosia [facility] CENTERCarlos
[2016-04-28] MEDS: Enoxaparin 120 mg Syringe SC SCH ×2 (05:28→17:18)
[2016-04-28 07:34] LABS: EOS % 1.8 % (1.5-5.0); GRAN # 1.17 (1.4-6.5); GRAN % 52.2 % (50.0-68.0); HEMATOCRIT 27.2 % (42.0-52.0); LYMPH # 0.8 (1.2-3.4); LYMPH % 33.5 % (22.0-35.0); MEAN CELL VOLUME 87.7 fL (80.0-105.0); MEAN CORPUSCULAR HEMOGLOBIN 27.4 pg (25.0-35.0); MEAN CORPUSCULAR HGB CONC 31.3 g/dl (31.0-37.0); MEAN PLATELET VOLUME 9.9 fl (7.0-11.0); MONO # 0.3 (0.1-0.6); MONO % 12.5 % (1.0-6.0); PLATELET COUNT 72 10^3/uL (120.0-450.0); RED CELL DISTRIBUTION WIDTH 19.3 % (11.5-14.5)
[2016-04-28 07:38] LABS: ADD MANUAL DIFF? NO; WHITE BLOOD COUNT 2.2 10^3/ul (4.5-11.0)
[2016-04-28 08:06] LABS: BLOOD UREA NITROGEN 16 mg/dL (7-21); CARBON DIOXIDE 27 mmol/L (21-33); CHLORIDE 101 mmol/L (98-107); GFR AFRICAN-AMERICAN > 60; GLUCOSE,RANDOM 112 mg/dL (70-110); POTASSIUM 4.1 mmol/L (3.6-5.0); SODIUM 135 mmol/L (132-148)
[2016-04-28] MEDS: Oxycodone/Acetaminophen 5/325 mg Tab PO PRN (08:50)
[2016-04-28 09:37] LABS: INR 1.3 (0.93-1.08)
--- NOTE | 2016-04-28 09:50 | CP.PCM.PN ---
Subjective - Date & Time of Evaluation Date of Evaluation: 04/28/16 Time of Evaluation: 09:47 - Subjective Subjective: 80 y/o male seen at bedside with attending Dr. Hill for bilateral lower extremity edema with DVT to right lower extremity with associated venous stasis ulcerations. Patient is feeling better, with less trouble breathing. Patient denies any pain to lower extremities. Patient denies any acute events overnight. Dressings remain in intact to legs bilaterally. Patient denies n/f/c/ v/d/sob. Objective - Vital Signs/Intake and Output Vital Signs (last 24 hours): Temp Pulse Resp BP Pulse Ox 98 F 71 18 110/64 98 04/28/16 08:00 04/28/16 08:00 04/28/16 08:00 04/28/16 09:05 04/27/16 16:30 Intake and Output: 04/28/16 04/28/16 06:59 18:59 Intake Total 1100 Output Total 300 Balance 800 - Medications Medications: Current Medications Carvedilol (Coreg) 6.25 mg PO BID [facility] Cyanocobalamin (Vitamin B12 1000 Mcg/Ml Inj) 1,000 mcg IM DAILY [facility] Stop: 05/01/16 10:30 Last Admin: 04/28/16 09:05 Dose: 1,000 mcg Enoxaparin Sodium (Lovenox) 120 mg SC Q12H PAT PRN Reason: Protocol Last Admin: 04/28/16 05:28 Dose: 120 mg Furosemide (Lasix) 40 mg IVP Q12 [facility] Last Admin: 04/28/16 09:05 Dose: 40 mg Iron Sucrose 100 mg/ Sodium (Chloride) 105 mls @ 210 mls/hr IV DAILY [facility] Stop: 05/02/16 10:31 Last Admin: 04/27/16 12:27 Dose: 210 mls/hr Levofloxacin/Dextrose (Levaquin 500mg) 100 mls @ 100 mls/hr IVPB DAILY [facility] Last Admin: 04/28/16 09:04 Dose: 100 mls/hr Lactic Acid (Lac-Hydrin 12% Lotion (225 G)) 0 gm EXT DAILY [facility] Last Admin: 04/27/16 10:52 Dose: 1 appl Ondansetron HCl (Zofran Tab) 4 mg PO Q6H PRN PRN Reason: Nausea/Vomiting Last Admin: 04/28/16 08:53 Dose: 4 mg Oxycodone/Acetaminophen (Percocet 5/325 Mg Tab) 1 tab PO Q12 PRN PRN Reason: Pain, moderate (4-7) Stop: 04/28/16 21:09 Last Admin: 04/28/16 08:50 Dose: 1 tab Warfarin Sodium (Coumadin) 5 mg PO 1800 PAT PRN Reason: Protocol Last Admin: 04/27/16 17:25 Dose: 5 mg - Labs Labs: 04/28/16 07:20 04/28/16 07:20 PT 14.0 Seconds (9.9-11.8) H 04/28/16 08:30 INR 1.30 (0.93-1.08) H 04/28/16 08:30 APTT 37.9 Seconds (23.7-30.8) H 04/26/16 07:04 - Constitutional Appears: Well, Non-toxic, No Acute Distress - Extremities Exam Additional comments: Vasc: nonpalpable pedal pulses bilaterally, secondary to edema, +4 edema on right, +3 on left, CFT < 4 sec to all digits, TG wnl Neuro: grossly diminished derm: numerous superficial openings with minimal serous drainage on right lower leg at the medial ankle, no purulence, no malodor, no acute clinical signs of infection, no abscess or undermining, left leg noted edema with secondary trophic changes ortho: no pain or tenderness to palpation of legs b/l - Neurological Exam Neurological Exam: Alert, Awake, Oriented x3 - Psychiatric Exam Psychiatric exam: Normal Affect, Normal Mood Assessment and Plan - Assessment and Plan (Free Text) Assessment: 80 y/o male seen at bedside for bilateral lower extremity edema and venous stasis ulcerations Plan: patient evaluated and chart reviewed seen at bedside with attending Dr. Hill labs and vitals reviewed wound cx: acinetobacter - patient covered on levaquin continue IV abx as per ID cleansed legs with saline, applied lotion bilaterally maxorb, DSD, ELDER applied to right lower extremity ELDER applied to LLE patient instructed to remove ELDER bandages at night podiatry will continue to monitor while patient remains in house
--- NOTE | 2016-04-28 10:10 | PN ---
DATE: 04/28/2016 SUBJECTIVE: The patient is seen sitting in his bed on 5R. His legs are wrapped, but remain edematou s. He appears somewhat depressed. He denies any dyspnea. CURRENT MEDICATIONS: Include amiodarone 200 mg daily, carvedilol 3.125 mg b.i.d., Coumadin 5 mg glenroy y, iron infusion, Lasix 40 mg IV q. 12 hours, Levaquin, Lovenox, Percocet. OBJECTIVE: GENERAL: He is an overweight elderly man. VITAL SIGNS: His blood pressure is 100/64 with a pulse of 70, respirations are 16. He is afebrile. HEENT: No JVD. CHEST: Bilateral scattered rhonchi. HEART: Irregular regular rhythm with distant sounds noted. ABDOMEN: Soft, obese, nontender, normoactive bowel sounds. EXTREMITIES: Both lower extremities are wrapped with Fran bandages. At least 2+ edema is present. DIAGNOSTIC DATA: His white count is 2.2, hemoglobin and hematocrit are 8.5 and 27.2 with a platelet count of 72,000. Last INR was 1.24. Potassium 4.1, BUN and creatinine are 16 and 1.2, glucose is 11 2. IMPRESSION: 1. Peripheral edema likely secondary to chronic venous insufficiency and postphlebitic syndrome. 2. Acute deep venous thrombosis. 3. Metastatic lung cancer. 4. Coronary disease, status post remote myocardial infarction. 5. Chronic atrial fibrillation. RECOMMENDATIONS: Continued local wound care for his legs is advisable. IV Lasix will be continued a s well. Pending a therapeutic INR, Lovenox is being administered. Given his persistent atrial fibri llation, it would be reasonable to discontinue amiodarone at this time. In addition, his carvedilol dose can be increased for rate control. Supportive care and conservative measures are most appropria te at this time. We will continue to follow along and make further recommendations as needed. Vince Feldman MD cc: [id number] TT: 04/28/2016 10:09:19 Confirmation # [id number] Dictation # [id number] mn
--- NOTE | 2016-04-28 11:28 | CP.PCM.CON ---
History of Present Illness - History of Present Illness History of Present Illness: Palliative consult requested by Dr Jaelyn Gracia Reason: goals of care/advance care planning 80 year old male who presented to ED with swelling of both lower extremities,2 days duration. Lower extremity ultrasound showed extrensive hypoechoic thrombus in the right common femoral and popiiteal veins. PMHx: Metastatic squamous cell lung cancer last chemotherapy 04/08/16. Palliative RT to thoracic spine completed 04/23/16. PVD, [place], CAD, DVT with IVC filter, cardiomyopathy,chronic lower extremity stasis ulcers. Family History: Sibling had lung cancer. Social History: Former smoker, 30 pack years, social alcohol,denies illicit drug use. Retired, lives alone,siblings are supportive. Advance Care Planning: The patient is DNR/DNI. The does not have a Living Will. Review of Systems:As per HPI, upper thoracic spine tenderness on palpation, all other systems negative Past Patient History - Infectious Disease Hx of Infectious Diseases: None - Tetanus Immunizations Tetanus Immunization: Unknown - Past Medical History & Family History Past Medical History?: Yes - Past Social History Smoking Status: Former Smoker - CARDIAC Hx Cardiac Disorders: Yes Hx Congestive Heart Failure: Yes Hx Hypertension: Yes - PULMONARY Hx Respiratory Disorders: No Other/Comment: Former smoker - NEUROLOGICAL Hx Neurological Disorder: No - HEENT Hx HEENT Problems: No - RENAL Hx Chronic Kidney Disease: No - ENDOCRINE/METABOLIC Hx Endocrine Disorders: No - HEMATOLOGICAL/ONCOLOGICAL Hx Blood Disorders: No Hx AIDS: No - INTEGUMENTARY Hx Dermatological Problems: Yes Other/Comment: BLE wounds - tx by Dr Hill - MUSCULOSKELETAL/RHEUMATOLOGICAL Hx Falls: Yes - GASTROINTESTINAL Hx Gastrointestinal Disorders: No - GENITOURINARY/GYNECOLOGICAL Hx Genitourinary Disorders: No Hx Reproductive Disorders: No - PSYCHIATRIC Hx Psychophysiologic Disorder: No Hx Substance Use: No - SURGICAL HISTORY Hx Amputation: Yes (tramatic left hand amputation) - ANESTHESIA Hx Anesthesia: Yes Meds Allergies/Adverse Reactions: Allergies Allergy/AdvReac Type Severity Reaction Status Date / Time No Known Allergies Allergy Verified 04/25/16 14:45 - Medications Medications: Current Medications Carvedilol (Coreg) 6.25 mg PO BID [facility] Cyanocobalamin (Vitamin B12 1000 Mcg/Ml Inj) 1,000 mcg IM DAILY [facility] Stop: 05/01/16 10:30 Last Admin: 04/28/16 09:05 Dose: 1,000 mcg Enoxaparin Sodium (Lovenox) 120 mg SC Q12H [facility] PRN Reason: Protocol Last Admin: 04/28/16 05:28 Dose: 120 mg Furosemide (Lasix) 40 mg IVP Q12 [facility] Last Admin: 04/28/16 09:05 Dose: 40 mg Iron Sucrose 100 mg/ Sodium (Chloride) 105 mls @ 210 mls/hr IV DAILY [facility] Stop: 05/02/16 10:31 Last Admin: 04/28/16 10:13 Dose: 210 mls/hr Levofloxacin/Dextrose (Levaquin 500mg) 100 mls @ 100 mls/hr IVPB DAILY [facility] Last Admin: 04/28/16 09:04 Dose: 100 mls/hr Lactic Acid (Lac-Hydrin 12% Lotion (225 G)) 0 gm EXT DAILY [facility] Last Admin: 04/27/16 10:52 Dose: 1 appl Ondansetron HCl (Zofran Tab) 4 mg PO Q6H PRN PRN Reason: Nausea/Vomiting Last Admin: 04/28/16 08:53 Dose: 4 mg Oxycodone/Acetaminophen (Percocet 5/325 Mg Tab) 1 tab PO Q12 PRN PRN Reason: Pain, moderate (4-7) Stop: 04/28/16 21:09 Last Admin: 04/28/16 08:50 Dose: 1 tab Warfarin Sodium (Coumadin) 5 mg PO 1800 [facility] PRN Reason: Protocol Last Admin: 04/27/16 17:25 Dose: 5 mg Physical Exam - Constitutional Appears: Chronically Ill - Head Exam Head Exam: NORMAL INSPECTION - Eye Exam Eye Exam: Normal appearance, PERRL - ENT Exam ENT Exam: Mucous Membranes Moist, Normal Oropharynx - Neck Exam Neck exam: Positive for: Normal Inspection - Respiratory Exam Respiratory Exam: Decreased Breath Sounds, NORMAL BREATHING PATTERN - Cardiovascular Exam Cardiovascular Exam: REGULAR RHYTHM, +S1, +S2 - GI/Abdominal Exam GI & Abdominal Exam: Normal Bowel Sounds, Soft Additional comments: no tenderness or guarding - Extremities Exam Additional comments: dressing both lower extremities ( knee to ankle), extremities appears swollen, pulses - Back Exam Back exam: vertebral tenderness - Neurological Exam Neurological exam: Oriented x3 - Skin Skin Exam: Dry Additional comments: stasis ulcer both lower extremities, heels Results - Vital Signs Recent Vital Signs: Last Vital Signs Temp 98 F 03/22/17 08:00 Pulse 71 04/28/16 08:00 Resp 18 04/28/16 08:00 BP 110/64 04/28/16 09:05 Pulse Ox 98 04/27/16 16:30 - Labs Result Diagrams: 04/28/16 07:20 04/28/16 07:20 Labs: Laboratory Results - last 24 hr 04/28/16 04/28/16 07:20 08:30 WBC 2.2 L* RBC 3.10 L Hgb 8.5 L Hct 27.2 L MCV 87.7 MCH 27.4 MCHC 31.3 RDW 19.3 H Plt Count 72 L MPV 9.9 Gran % 52.2 Lymph % (Auto) 33.5 Chase % (Auto) 12.5 H Eos % (Auto) 1.8 Baso % (Auto) 0.0 Gran # 1.17 L Lymph # 0.8 L Chase # 0.3 Eos # 0.0 Baso # 0.00 PT 14.0 H INR 1.30 H Sodium 135 Potassium 4.1 Chloride 101 Carbon Dioxide 27 Anion Gap 11 BUN 16 Creatinine 1.2 Est GFR ( Amer) > 60 Est GFR (Non-Af Amer) 58 Random Glucose 112 H Calcium 8.0 L Assessment & Plan - Assessment and Plan (Free Text) Assessment: 80 year old male admitted with lower extremity swelling, recurrent DVT's The patient is pleasant, alert and oriented. He is fully aware of medical issues and prognosis. Patient is DNR/DNI. States he does not have an Advance Directive. Importance of initiating Directive/POLST explained in detail. Questions answered. He states he is not worried about when will come, he is more concerned about comfort and quality of life. He does intend to pursue treatment for as long as he is able to do so. His brother and sister who are extremely supportive of his needs. Patient states he would like to speak with his siblings before doing POLST. Time spent in discussion with patient regarding goals of care and advance care planning, 40 minutes Plan: No recommendations at this time, continue current medical management. Will assist with advance care panning - Date & Time Date: 04/28/16 Time: 10:30
--- NOTE | 2016-04-28 15:07 | CP.PCM.PN ---
<Demi Hernandez - Last Filed: 04/28/16 15:23> Subjective - Date & Time of Evaluation Date of Evaluation: 04/28/16 Time of Evaluation: 07:10 - Subjective Subjective: Patient seen and examined at bedside. No acute events overnight. Patient's back pain controlled with percocet. Patient reports his LE swelling improved slightly. Discussed with patient and sister (Shaneka [phone]) in detail about importance of outpatient SC lovenox injection given his history of malignancy and DVT. Patient lives alone and is disabled therefore he will need someone to administer lovenox after discharged from hospital. He Denies headache , fever, chills, chest pain, shortness of breath, nausea, vomiting, diarrhea, or constipation. Objective - Vital Signs/Intake and Output Vital Signs (last 24 hours): Temp Pulse Resp BP Pulse Ox 98 F 71 18 110/64 98 04/28/16 08:00 04/28/16 08:00 04/28/16 08:00 04/28/16 09:05 04/27/16 16:30 Intake and Output: 04/28/16 04/28/16 06:59 18:59 Intake Total 1100 Output Total 300 Balance 800 - Medications Medications: Current Medications Carvedilol (Coreg) 6.25 mg PO BID [facility] Cyanocobalamin (Vitamin B12 1000 Mcg/Ml Inj) 1,000 mcg IM DAILY [facility] Stop: 05/01/16 10:30 Last Admin: 04/28/16 09:05 Dose: 1,000 mcg Enoxaparin Sodium (Lovenox) 120 mg SC Q12H PAT PRN Reason: Protocol Last Admin: 04/28/16 05:28 Dose: 120 mg Furosemide (Lasix) 40 mg IVP Q12 [facility] Last Admin: 04/28/16 09:05 Dose: 40 mg Iron Sucrose 100 mg/ Sodium (Chloride) 105 mls @ 210 mls/hr IV DAILY [facility] Stop: 05/02/16 10:31 Last Admin: 04/28/16 10:13 Dose: 210 mls/hr Levofloxacin/Dextrose (Levaquin 500mg) 100 mls @ 100 mls/hr IVPB DAILY [facility] Last Admin: 04/28/16 09:04 Dose: 100 mls/hr Lactic Acid (Lac-Hydrin 12% Lotion (225 G)) 0 gm EXT DAILY [facility] Last Admin: 04/27/16 10:52 Dose: 1 appl Ondansetron HCl (Zofran Tab) 4 mg PO Q6H PRN PRN Reason: Nausea/Vomiting Last Admin: 04/28/16 08:53 Dose: 4 mg Oxycodone/Acetaminophen (Percocet 5/325 Mg Tab) 1 tab PO Q12 PRN PRN Reason: Pain, moderate (4-7) Stop: 04/28/16 21:09 Last Admin: 04/28/16 08:50 Dose: 1 tab Warfarin Sodium (Coumadin) 10 mg PO 1800 PAT PRN Reason: Protocol - Labs Labs: 04/28/16 07:20 04/28/16 07:20 PT 14.0 Seconds (9.9-11.8) H 04/28/16 08:30 INR 1.30 (0.93-1.08) H 04/28/16 08:30 APTT 37.9 Seconds (23.7-30.8) H 04/26/16 07:04 - Constitutional Appears: Non-toxic, No Acute Distress, Chronically Ill - Head Exam Head Exam: ATRAUMATIC, NORMAL INSPECTION - Eye Exam Eye Exam: Normal appearance Pupil Exam: PERRL - ENT Exam ENT Exam: Mucous Membranes Moist - Neck Exam Neck Exam: Normal Inspection - Respiratory Exam Respiratory Exam: Clear to Ausculation Bilateral, NORMAL BREATHING PATTERN. absent: Rhonchi, Wheezes, Respiratory Distress - Cardiovascular Exam Cardiovascular Exam: REGULAR RHYTHM, RRR, +S1, +S2. absent: Murmur - GI/Abdominal Exam GI & Abdominal Exam: Soft, Normal Bowel Sounds. absent: Tenderness - Extremities Exam Extremities Exam: Joint Swelling, Pedal Edema Additional comments: Bilateral lower extremity edema, +2 pitting edema. Chronic skin changes along bilaterally lower extremities, darked/thickened patches of skin along bilateral posterior heels, dry and cracked skin throughout LE. ELDER wrapped by podiatry. No signs of drainage. - Neurological Exam Neurological Exam: Alert, Awake, Oriented x3 - Psychiatric Exam Psychiatric exam: Normal Affect, Normal Mood - Skin Skin Exam: Dry, Warm Assessment and Plan - Assessment and Plan (Free Text) Assessment: 80 year old male with past medical history of PVD, [place] 8 years prior, CAD, DVT with IVC filter, cardiomyopathy, chronic LE ulcers, and traumatic amputation of left fingers who presented to the ED for swelling in his legs x3 days. He was found to have extensive RLE DVT on US and is subtherapeutic on coumadin with an INR of 1.5. He is being admitted for persistent LE edema and RLE DVT requiring bridging anticoagulation until therapeutic on warfarin. Bilateral LE edema -DVT vs Venous insufficiency vs arterial insufficiency vs CHF/fluid overload -Hx of PVD and LE ulcers, [facility] consulted -Hx of DVT, elevated risk of coagulopathy given hx AFib and active metastatic cancer -LE US obtained noted extensive RLE DVT -CTA no evidence of PE -Continue Lasix 40mg IV q12 -Last Echo in 02/24/16, EF > 60% with normal LV fxn -CXR obtained, poor visualization due to body habitus but does not appear to be fluid overloaded -Wound culture grew Acinetobacter Baumannii -Contine Levaquin IV -INR subtherapeutic at 1.3, continue lovenox 120mg BID and increase coumadin to 10mg -Will follow up on INR in the morning -Patient will likely require outpatient SC lovenox therapy and follow up closely with PMD Mid thoracic mass lesion 2/2 to lung CA metastasis -MRI chest showed no evidence of cord compression. Large destructive mass lesion at the right aspect of the mid thoracic spine from T5 to T7 extending to the right paraspinal soft tissue highly suggestive of malignant neoplasm (see full report). -Obtain medical records from [facility], patient will continue to follow up with oncologist there after discharged -Patient was evaluated by neurosurgery at [facility], was instructed to where back brace while ambulating. -Percocet q12 prn -Zofran 4mg q6 prn CAD with prior [place] -continue home amlodipine and coreg, holding home imdur and vasotec due to low- normal blood pressures -Troponin negative x2 Afib subtherapeutic on Warfarin -continue home amlodipine and coreg -INR 1.5 in ED -INR subtherapeutic at 1.3, continue lovenox 120mg BID and increased coumadin to 10mg for this afternoon -Will follow up on INR in the morning -Heme/onc consulted for anticoagulation recs Thrombocytopenia -Platelets 60 on admission, 72 today -Likely 2/2 radiation therapy -Type and screened, if develops acute bleed or platelets significantly decrease further, can consider transfusing platelets -Follow Heme/onc recommendations Anemia -Hgb 8.5 on admission, today 8.5 (10-11 baseline) -Stool occult positive -Type and screened on admission Prophylactic measures -Avoid PPI/Pepcid due to thrombocytopenia -Warfarin/Therapeutic Lovenox covers for DVT <Dimas Ventura MD - Last Filed: 04/28/16 16:28> Objective - Vital Signs/Intake and Output Vital Signs (last 24 hours): Temp Pulse Resp BP Pulse Ox 98 F 71 18 110/64 98 04/28/16 08:00 04/28/16 08:00 04/28/16 08:00 04/28/16 09:05 04/27/16 16:30 Intake and Output: 04/28/16 04/28/16 06:59 18:59 Intake Total 1100 Output Total 300 Balance 800 - Medications Medications: Current Medications Carvedilol (Coreg) 6.25 mg PO BID [facility] Cyanocobalamin (Vitamin B12 1000 Mcg/Ml Inj) 1,000 mcg IM DAILY [facility] Stop: 05/01/16 10:30 Last Admin: 04/28/16 09:05 Dose: 1,000 mcg Enoxaparin Sodium (Lovenox) 120 mg SC Q12H PAT PRN Reason: Protocol Last Admin: 04/28/16 05:28 Dose: 120 mg Furosemide (Lasix) 40 mg IVP Q12 [facility] Last Admin: 04/28/16 09:05 Dose: 40 mg Iron Sucrose 100 mg/ Sodium (Chloride) 105 mls @ 210 mls/hr IV DAILY [facility] Stop: 05/02/16 10:31 Last Admin: 04/28/16 10:13 Dose: 210 mls/hr Levofloxacin/Dextrose (Levaquin 500mg) 100 mls @ 100 mls/hr IVPB DAILY [facility] Last Admin: 04/28/16 09:04 Dose: 100 mls/hr Lactic Acid (Lac-Hydrin 12% Lotion (225 G)) 0 gm EXT DAILY [facility] Last Admin: 04/27/16 10:52 Dose: 1 appl Ondansetron HCl (Zofran Tab) 4 mg PO Q6H PRN PRN Reason: Nausea/Vomiting Last Admin: 04/28/16 08:53 Dose: 4 mg Oxycodone/Acetaminophen (Percocet 5/325 Mg Tab) 1 tab PO Q12 PRN PRN Reason: Pain, moderate (4-7) Stop: 04/28/16 21:09 Last Admin: 04/28/16 08:50 Dose: 1 tab Warfarin Sodium (Coumadin) 10 mg PO 1800 PAT PRN Reason: Protocol - Labs Labs: 04/28/16 07:20 04/28/16 07:20 PT 14.0 Seconds (9.9-11.8) H 04/28/16 08:30 INR 1.30 (0.93-1.08) H 04/28/16 08:30 APTT 37.9 Seconds (23.7-30.8) H 04/26/16 07:04 Attending/Attestation - Attestation I have personally seen and examined this patient.: Yes I have fully participated in the care of the patient.: Yes I have reviewed all pertinent clinical information, including history, physical exam and plan: Yes Notes (Text): Patient was seen and examined with medical technical writer .Agreed with resident assessment and plan. Patient with metastatic lung cancer,DVT,SP IVC filter, AF on anticoagulation, chronic leg swelling due to venous stasis and venous ulcer.Patient INR is not therapeautic, hematology recommended life long anticoagulation with lovenox, rather than warfarin, patient is unable to inject lovenox, live by himself, discussed with sister over the phone who said ,she would not be able to do it, will leave patient on warfarin then.He already has IVC filter, once INR more than 1.7, will DC home with warfarin. Patient is non compliance with Brace , the issue was discussed in detail with patient. Patient has Pancytopenia, stable. Prognosis is guarded. Management plan was discussed in detail with patient and sister over the phone. Education was provided.
[2016-04-28] MEDS ORDERED: POLYETHYLENE GLYCOL 3350 17 GM/Dose PACKET PO ONE (22:54)
[2016-04-29] MEDS: Oxycodone/Acetaminophen 5/325 mg Tab PO PRN ×2 (02:53→20:47)
[2016-04-29] MEDS: Enoxaparin 120 mg Syringe SC SCH (06:03)
[2016-04-29 08:10] LABS: BASO # 0.01 K/mm3 (0.0-2.0); BASO % 0.4 % (0.0-3.0); EOS # 0.1 (0.0-0.7); EOS % 3.1 % (1.5-5.0); GRAN # 1.24 (1.4-6.5); GRAN % 54.1 % (50.0-68.0); HEMATOCRIT 28.1 % (42.0-52.0); LYMPH # 0.7 (1.2-3.4); MEAN CELL VOLUME 88.6 fL (80.0-105.0); MEAN CORPUSCULAR HEMOGLOBIN 27.8 pg (25.0-35.0); MEAN CORPUSCULAR HGB CONC 31.3 g/dl (31.0-37.0); MEAN PLATELET VOLUME 9.6 fl (7.0-11.0); MONO # 0.3 (0.1-0.6); MONO % 11.4 % (1.0-6.0); PLATELET COUNT 71 10^3/uL (120.0-450.0); RED CELL DISTRIBUTION WIDTH 19.1 % (11.5-14.5)
[2016-04-29 08:15] LABS: INR 1.44 (0.93-1.08)
--- NOTE | 2016-04-29 08:18 | CP.PCM.PN ---
Subjective - Date & Time of Evaluation Date of Evaluation: 04/29/16 Time of Evaluation: 08:00 - Subjective Subjective: Stable on 5R. No CP or SOB. Good urine output reported to me by his nurse but accurate I/O not recorded. V/S noted. PE: Lungs: clear Cor.: irreg, S!S2 Abd.: soft Ext.: legs wrapped Neuro.: alert Labs 04/28 noted. Today's labs pending. Objective - Vital Signs/Intake and Output Vital Signs (last 24 hours): Temp Pulse Resp BP Pulse Ox 98.8 F 83 18 100/52 L 90 L 04/28/16 16:00 04/28/16 16:00 04/28/16 16:00 04/28/16 21:46 04/28/16 16:00 Intake and Output: 04/29/16 04/29/16 06:59 18:59 Intake Total 600 Balance 600 - Medications Medications: Current Medications Carvedilol (Coreg) 6.25 mg PO BID [facility] Last Admin: 04/28/16 17:19 Dose: 6.25 mg Cyanocobalamin (Vitamin B12 1000 Mcg/Ml Inj) 1,000 mcg IM DAILY [facility] Stop: 05/01/16 10:30 Last Admin: 04/28/16 09:05 Dose: 1,000 mcg Enoxaparin Sodium (Lovenox) 120 mg SC Q12H PAT PRN Reason: Protocol Last Admin: 04/29/16 06:03 Dose: 120 mg Furosemide (Lasix) 40 mg IVP Q12 [facility] Last Admin: 04/28/16 21:46 Dose: Not Given Iron Sucrose 100 mg/ Sodium (Chloride) 105 mls @ 210 mls/hr IV DAILY [facility] Stop: 05/02/16 10:31 Last Admin: 04/28/16 10:13 Dose: 210 mls/hr Levofloxacin/Dextrose (Levaquin 500mg) 100 mls @ 100 mls/hr IVPB DAILY [facility] Last Admin: 04/28/16 09:04 Dose: 100 mls/hr Lactic Acid (Lac-Hydrin 12% Lotion (225 G)) 0 gm EXT DAILY [facility] Last Admin: 04/27/16 10:52 Dose: 1 appl Ondansetron HCl (Zofran Tab) 4 mg PO Q6H PRN PRN Reason: Nausea/Vomiting Last Admin: 04/29/16 02:53 Dose: 4 mg Oxycodone/Acetaminophen (Percocet 5/325 Mg Tab) 1 tab PO Q12H PRN PRN Reason: Pain, moderate (4-7) Stop: 05/02/16 02:31 Last Admin: 04/29/16 02:53 Dose: 1 tab Warfarin Sodium (Coumadin) 10 mg PO 1800 PAT PRN Reason: Protocol Last Admin: 04/28/16 17:18 Dose: 10 mg - Labs Labs: 04/28/16 07:20 04/28/16 07:20 PT 14.0 Seconds (9.9-11.8) H 04/28/16 08:30 INR 1.30 (0.93-1.08) H 04/28/16 08:30 APTT 37.9 Seconds (23.7-30.8) H 04/26/16 07:04 Assessment and Plan - Assessment and Plan (Free Text) Plan: Assessment: Chronic LE edema with cellulitis H/O CCM/CAD/MA with Nl. LV fx. on most recent echo. Chronic AF DVT/Chronic venous insufficiency IVC Filter PAD Metastatic lung cancer, s/p recent course of XRT Amputation toes left hand DNR/DNI status Plan: Continue IV Lasix. Upon D/C change to PO Lasix 40 BID Check today's labs, INR Lovenox > warfarin AB/Wound Care As per Heme/Onc., Podiatry, Hospitalists.
[2016-04-29 08:29] LABS: WHITE BLOOD COUNT 2.3 10^3/ul (4.5-11.0)
[2016-04-29 08:30] LABS: ADD MANUAL DIFF? NO
[2016-04-29 09:07] LABS: BLOOD UREA NITROGEN 13 mg/dL (7-21); CALCIUM 8.2 mg/dL (8.4-10.5); CARBON DIOXIDE 26 mmol/L (21-33); CHLORIDE 102 mmol/L (98-107); GFR AFRICAN-AMERICAN > 60; GLUCOSE,RANDOM 111 mg/dL (70-110); POTASSIUM 3.8 mmol/L (3.6-5.0); SODIUM 136 mmol/L (132-148)
[2016-04-29] MEDS ORDERED: POLYETHYLENE GLYCOL 3350 17 GM/Dose PACKET PO ONE (11:47)
[2016-04-29] MEDS: Ammonium Lactate 12% Lotion (225 g) EXT SCH (11:56)
--- NOTE | 2016-04-29 13:11 | CP.PCM.PN ---
<Demi Hernandez - Last Filed: 04/29/16 18:04> Subjective - Date & Time of Evaluation Date of Evaluation: 04/29/16 Time of Evaluation: 07:00 - Subjective Subjective: Patient seen and examined at bedside. Patient's BP dropped to 100/52, evening dose Lasix was held. Patient still has back pain, which was controlled with percocet. Denies headache, fever, chills, shortness of breath, headache, nausea , vomiting, or abdominal pain. Patient was aware the option of hospice care but would like his sister Shaneka to be involved in decision making. Discussed with Sister and patient in detail and they agreed to hospice, case resolution specialist made aware. Objective - Vital Signs/Intake and Output Vital Signs (last 24 hours): Temp Pulse Resp BP Pulse Ox 98.8 F 75 18 120/62 90 L 04/28/16 16:00 04/29/16 10:01 04/28/16 16:00 04/29/16 10:01 04/28/16 16:00 Intake and Output: 04/29/16 04/29/16 06:59 18:59 Intake Total 600 Balance 600 - Medications Medications: Current Medications Carvedilol (Coreg) 6.25 mg PO BID [facility] Last Admin: 04/29/16 10:01 Dose: 6.25 mg Cyanocobalamin (Vitamin B12 1000 Mcg/Ml Inj) 1,000 mcg IM DAILY [facility] Stop: 05/01/16 10:30 Last Admin: 04/29/16 10:01 Dose: 1,000 mcg Furosemide (Lasix) 40 mg IVP Q12 [facility] Last Admin: 04/29/16 10:01 Dose: 40 mg Iron Sucrose 100 mg/ Sodium (Chloride) 105 mls @ 210 mls/hr IV DAILY [facility] Stop: 05/02/16 10:31 Last Admin: 04/29/16 11:55 Dose: 210 mls/hr Levofloxacin/Dextrose (Levaquin 500mg) 100 mls @ 100 mls/hr IVPB DAILY [facility] Last Admin: 04/29/16 10:02 Dose: 100 mls/hr Lactic Acid (Lac-Hydrin 12% Lotion (225 G)) 0 gm EXT DAILY [facility] Last Admin: 04/29/16 11:56 Dose: 1 appl Ondansetron HCl (Zofran Tab) 4 mg PO Q6H PRN PRN Reason: Nausea/Vomiting Last Admin: 04/29/16 02:53 Dose: 4 mg Oxycodone/Acetaminophen (Percocet 5/325 Mg Tab) 1 tab PO Q12H PRN PRN Reason: Pain, moderate (4-7) Stop: 05/02/16 02:31 Last Admin: 04/29/16 02:53 Dose: 1 tab - Labs Labs: 04/29/16 07:50 04/29/16 07:50 PT 15.5 Seconds (9.9-11.8) H 04/29/16 07:50 INR 1.44 (0.93-1.08) H 04/29/16 07:50 APTT 37.9 Seconds (23.7-30.8) H 04/26/16 07:04 - Constitutional Appears: Non-toxic, No Acute Distress, Chronically Ill - Head Exam Head Exam: ATRAUMATIC, NORMOCEPHALIC - Eye Exam Eye Exam: Normal appearance, PERRL Pupil Exam: PERRL - ENT Exam ENT Exam: Mucous Membranes Moist - Neck Exam Neck Exam: Normal Inspection - Respiratory Exam Respiratory Exam: Clear to Ausculation Bilateral, NORMAL BREATHING PATTERN. absent: Rhonchi, Wheezes, Respiratory Distress - Cardiovascular Exam Cardiovascular Exam: REGULAR RHYTHM, +S1, +S2. absent: Murmur - GI/Abdominal Exam GI & Abdominal Exam: Soft, Normal Bowel Sounds. absent: Tenderness - Extremities Exam Extremities Exam: Joint Swelling, Pedal Edema Additional comments: Bilateral lower extremity edema, +2 pitting edema. Chronic skin changes along bilaterally lower extremities, darked/thickened patches of skin along bilateral posterior heels, dry and cracked skin throughout LE. ELDER wrapped by podiatry. No signs of drainage. - Neurological Exam Neurological Exam: Alert, Awake, Oriented x3 - Psychiatric Exam Psychiatric exam: Normal Affect, Normal Mood - Skin Skin Exam: Dry, Warm Assessment and Plan - Assessment and Plan (Free Text) Assessment: 80 year old male with past medical history of metastatic lung cancer, PVD, CAD, DVT with IVC filter, cardiomyopathy, chronic LE ulcers presented to the ED for swelling in his legs x3 days. He was found to have extensive RLE DVT on US and is subtherapeutic on coumadin with an INR of 1.5. 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 After an extensive discussion with patient's oncologist at [facility], Dr. Mack recommends to discontinue anticoagulation therapy. Base on prior workups , patient is not a candidate for further radiation or immunosuppressant therapy. Hospice placement pending. Bilateral LE edema -DVT vs Venous insufficiency vs arterial insufficiency vs CHF/fluid overload -Hx of PVD and LE ulcers, [facility] Hill consulted -Hx of DVT, elevated risk of coagulopathy given hx AFib and active metastatic cancer -LE US obtained noted extensive RLE DVT -CTA no evidence of PE -Continue Lasix 40mg IV q12, held the PM dose due to BP 100/52 -Wound culture grew Acinetobacter Baumannii -Continue Levaquin IV -INR still subtherapeutic at 1.44 after aggressive coudamin and lovenox therapy -Follow Heme/onc recommendations Mid thoracic mass lesion 2/2 to lung CA metastasis -MRI chest showed no evidence of cord compression. Large destructive mass lesion at the right aspect of the mid thoracic spine from T5 to T7 extending to the right paraspinal soft tissue highly suggestive of malignant neoplasm (see full report). -Obtain medical records from [facility], patient will continue to follow up with oncologist there after discharged -Patient was evaluated by neurosurgery at [facility], was instructed to where back brace while ambulating. -Percocet q12 prn -Zofran 4mg q6 prn -Follow Heme/onc recommendations CAD with prior [place] -continue home amlodipine and coreg, holding home imdur and vasotec due to low- normal blood pressures -Troponin negative x2 Afib subtherapeutic on Warfarin -continue home amlodipine and coreg -INR subtherapeutic -Follow Heme/onc recommendations Thrombocytopenia -Platelets 60 on admission, 71 today -Likely 2/2 radiation therapy -Type and screened, if develops acute bleed or platelets significantly decrease further, can consider transfusing platelets -Follow Heme/onc recommendations Anemia -Hgb 8.5 on admission, today 8.8 (10-11 baseline) -Stool occult positive -Type and screened on admission -Follow Heme/onc recommendations Prophylactic measures -Avoid PPI/Pepcid due to thrombocytopenia -Miralax for constipation <Lorenzo CUBA,Dimas - Last Filed: 04/30/16 16:42> Objective - Vital Signs/Intake and Output Vital Signs (last 24 hours): Temp Pulse Resp BP Pulse Ox 98.3 F 91 H 20 111/64 98 04/30/16 07:51 04/30/16 07:51 04/30/16 07:51 04/30/16 11:17 04/30/16 07:51 Intake and Output: 04/30/16 04/30/16 06:59 18:59 Intake Total 840 Balance 840 - Medications Medications: Current Medications Carvedilol (Coreg) 6.25 mg PO BID [facility] Last Admin: 04/30/16 11:17 Dose: 6.25 mg Cyanocobalamin (Vitamin B12 1000 Mcg/Ml Inj) 1,000 mcg IM DAILY [facility] Stop: 05/01/16 10:30 Last Admin: 04/30/16 10:00 Dose: Not Given Furosemide (Lasix) 40 mg IVP Q12 [facility] Last Admin: 04/30/16 10:00 Dose: Not Given Iron Sucrose 100 mg/ Sodium (Chloride) 105 mls @ 210 mls/hr IV DAILY [facility] Stop: 05/02/16 10:31 Last Admin: 04/30/16 11:16 Dose: Not Given Levofloxacin/Dextrose (Levaquin 500mg) 100 mls @ 100 mls/hr IVPB DAILY [facility] Last Admin: 04/30/16 11:16 Dose: Not Given Lactic Acid (Lac-Hydrin 12% Lotion (225 G)) 0 gm EXT DAILY [facility] Last Admin: 04/30/16 14:53 Dose: Not Given Ondansetron HCl (Zofran Tab) 4 mg PO Q6H PRN PRN Reason: Nausea/Vomiting Last Admin: 04/29/16 20:47 Dose: 4 mg Oxycodone/Acetaminophen (Percocet 5/325 Mg Tab) 1 tab PO Q12H PRN PRN Reason: Pain, moderate (4-7) Stop: 05/02/16 02:31 Last Admin: 04/30/16 15:43 Dose: 1 tab - Labs Labs: 04/30/16 08:57 04/29/16 07:50 PT 15.5 Seconds (9.9-11.8) H 04/29/16 07:50 INR 1.44 (0.93-1.08) H 04/29/16 07:50 APTT 37.9 Seconds (23.7-30.8) H 04/26/16 07:04 Attending/Attestation - Attestation I have personally seen and examined this patient.: Yes I have fully participated in the care of the patient.: Yes I have reviewed all pertinent clinical information, including history, physical exam and plan: Yes Notes (Text): Patient was seen and examined with certified medical coder .Agreed with resident assessment and plan. Patient case was discussed with Oncology .Patient has guiac positive stool, he also has IVC filter.The risk of bleeding is more.Oncology has recommended to stop anticoagulation to avoid the risk of bleeding as he already has IVC filter.This was discussed in detail with patient sister over the phone. Patient is also not a candidate for immunotherapy as per oncology.This was discussed with sister over the phone.Hospice has been recommended for patient, patient and sister both agreed, we will get Hospice consult for home hospice. Prognosis is guarded.
--- NOTE | 2016-04-29 13:47 | CP.PCM.PN ---
<Kailyn Harris - Last Filed: 04/29/16 13:44> Subjective - Date & Time of Evaluation Date of Evaluation: 04/29/16 Time of Evaluation: 13:44 - Subjective Subjective: 80 y/o male seen at bedside with attending Dr. Hill for bilateral lower extremity edema with DVT to right lower extremity with associated venous stasis ulcerations. Patient is feeling better, with less trouble breathing. Patient denies any pain to lower extremities. Patient denies any acute events overnight. Dressings remain in intact to legs bilaterally. Patient denies n/f/c/ v/d/sob. Objective - Vital Signs/Intake and Output Vital Signs (last 24 hours): Temp Pulse Resp BP Pulse Ox 98.8 F 75 18 120/62 90 L 04/28/16 16:00 04/29/16 10:01 04/28/16 16:00 04/29/16 10:01 04/28/16 16:00 Intake and Output: 04/29/16 04/29/16 06:59 18:59 Intake Total 600 Balance 600 - Medications Medications: Current Medications Carvedilol (Coreg) 6.25 mg PO BID [facility] Last Admin: 04/29/16 10:01 Dose: 6.25 mg Cyanocobalamin (Vitamin B12 1000 Mcg/Ml Inj) 1,000 mcg IM DAILY [facility] Stop: 05/01/16 10:30 Last Admin: 04/29/16 10:01 Dose: 1,000 mcg Furosemide (Lasix) 40 mg IVP Q12 [facility] Last Admin: 04/29/16 10:01 Dose: 40 mg Iron Sucrose 100 mg/ Sodium (Chloride) 105 mls @ 210 mls/hr IV DAILY [facility] Stop: 05/02/16 10:31 Last Admin: 04/29/16 11:55 Dose: 210 mls/hr Levofloxacin/Dextrose (Levaquin 500mg) 100 mls @ 100 mls/hr IVPB DAILY [facility] Last Admin: 04/29/16 10:02 Dose: 100 mls/hr Lactic Acid (Lac-Hydrin 12% Lotion (225 G)) 0 gm EXT DAILY [facility] Last Admin: 04/29/16 11:56 Dose: 1 appl Ondansetron HCl (Zofran Tab) 4 mg PO Q6H PRN PRN Reason: Nausea/Vomiting Last Admin: 04/29/16 02:53 Dose: 4 mg Oxycodone/Acetaminophen (Percocet 5/325 Mg Tab) 1 tab PO Q12H PRN PRN Reason: Pain, moderate (4-7) Stop: 05/02/16 02:31 Last Admin: 04/29/16 02:53 Dose: 1 tab - Labs Labs: 04/29/16 07:50 04/29/16 07:50 PT 15.5 Seconds (9.9-11.8) H 04/29/16 07:50 INR 1.44 (0.93-1.08) H 04/29/16 07:50 APTT 37.9 Seconds (23.7-30.8) H 04/26/16 07:04 - Constitutional Appears: Well, Non-toxic, No Acute Distress - Extremities Exam Additional comments: dressings intact to RLE LLE Vasc: nonpalpable pedal pulses secondary to edema, +3 on left, CFT < 4 sec to all digits, TG wnl Neuro: grossly diminished derm: no open lesions, no purulence, no malodor, no acute clinical signs of infection, no abscess or undermining, left leg noted edema with secondary trophic changes ortho: no pain or tenderness to palpation of legs b/l - Neurological Exam Neurological Exam: Alert, Awake, Oriented x3 - Psychiatric Exam Psychiatric exam: Normal Affect, Normal Mood Assessment and Plan - Assessment and Plan (Free Text) Assessment: 80 y/o male seen at bedside for bilateral lower extremity edema and venous stasis ulcerations Plan: patient evaluated and chart reviewed seen at bedside with attending Dr. Hill labs and vitals reviewed wound cx: acinetobacter - patient covered on levaquin continue IV abx as per ID dressing to right lower extremity remains c/d/i applied tubigrip to LLE patient to keep dressing c/d/i until follow up visit podiatry will continue to monitor while patient remains in house patient instructed to follow up with Dr. Hill in wound care center on tuesday , 05/03 <Mary Hill - Last Filed: 04/30/16 15:07> Objective - Vital Signs/Intake and Output Vital Signs (last 24 hours): Temp Pulse Resp BP Pulse Ox 98.3 F 91 H 20 111/64 98 04/30/16 07:51 04/30/16 07:51 04/30/16 07:51 04/30/16 11:17 04/30/16 07:51 Intake and Output: 04/30/16 04/30/16 06:59 18:59 Intake Total 840 Balance 840 - Medications Medications: Current Medications Carvedilol (Coreg) 6.25 mg PO BID [facility] Last Admin: 04/30/16 11:17 Dose: 6.25 mg Cyanocobalamin (Vitamin B12 1000 Mcg/Ml Inj) 1,000 mcg IM DAILY [facility] Stop: 05/01/16 10:30 Last Admin: 04/30/16 10:00 Dose: Not Given Furosemide (Lasix) 40 mg IVP Q12 [facility] Last Admin: 04/30/16 10:00 Dose: Not Given Iron Sucrose 100 mg/ Sodium (Chloride) 105 mls @ 210 mls/hr IV DAILY [facility] Stop: 05/02/16 10:31 Last Admin: 04/30/16 11:16 Dose: Not Given Levofloxacin/Dextrose (Levaquin 500mg) 100 mls @ 100 mls/hr IVPB DAILY [facility] Last Admin: 04/30/16 11:16 Dose: Not Given Lactic Acid (Lac-Hydrin 12% Lotion (225 G)) 0 gm EXT DAILY [facility] Last Admin: 04/30/16 14:53 Dose: Not Given Ondansetron HCl (Zofran Tab) 4 mg PO Q6H PRN PRN Reason: Nausea/Vomiting Last Admin: 04/29/16 20:47 Dose: 4 mg Oxycodone/Acetaminophen (Percocet 5/325 Mg Tab) 1 tab PO Q12H PRN PRN Reason: Pain, moderate (4-7) Stop: 05/02/16 02:31 Last Admin: 04/29/16 20:47 Dose: 1 tab - Labs Labs: 04/30/16 08:57 04/29/16 07:50 PT 15.5 Seconds (9.9-11.8) H 04/29/16 07:50 INR 1.44 (0.93-1.08) H 04/29/16 07:50 APTT 37.9 Seconds (23.7-30.8) H 04/26/16 07:04 Attending/Attestation - Attestation I have personally seen and examined this patient.: Yes I have fully participated in the care of the patient.: Yes I have reviewed all pertinent clinical information, including history, physical exam and plan: Yes
[2016-04-29 21:29] VITALS: RESP 20
[2016-04-30 07:52] VITALS: TEMP 98.3
[2016-04-30 08:58] LABS: ADD MANUAL DIFF? NO
[2016-04-30 09:14] LABS: BASO # 0.01 K/mm3 (0.0-2.0); BASO % 0.4 % (0.0-3.0); EOS # 0.1 (0.0-0.7); EOS % 2.8 % (1.5-5.0); GRAN # 1.23 (1.4-6.5); GRAN % 43.3 % (50.0-68.0); HEMATOCRIT 27.6 % (42.0-52.0); LYMPH # 1.1 (1.2-3.4); LYMPH % 38.7 % (22.0-35.0); MEAN CELL VOLUME 88.2 fL (80.0-105.0); MEAN CORPUSCULAR HEMOGLOBIN 28.1 pg (25.0-35.0); MEAN CORPUSCULAR HGB CONC 31.9 g/dl (31.0-37.0); MEAN PLATELET VOLUME 9.5 fl (7.0-11.0); MONO # 0.4 (0.1-0.6); MONO % 14.8 % (1.0-6.0); PLATELET COUNT 68 10^3/uL (120.0-450.0); RED CELL DISTRIBUTION WIDTH 19.4 % (11.5-14.5)
[2016-04-30 09:23] LABS: WHITE BLOOD COUNT 2.8 10^3/ul (4.5-11.0)
--- NOTE | 2016-04-30 13:06 | CP.PCM.DIS ---
<Demi Hernandez - Last Filed: 05/02/16 04:31> Provider - Provider Date of Admission: 04/25/16 18:57 Attending physician: Dimas Ventura MD Primary care physician: Dr. Wynn Consults: Heme/onc: Dr. Mack Podiatry: Dr. 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 (4) Atrial fibrillation Status: Chronic (5) Bilateral leg ulcer Status: Chronic (6) Cellulitis Status: Chronic (7) DVT (deep venous thrombosis) Status: Chronic (8) Weakness Status: Chronic (9) Thrombocytopenia Status: Chronic Hospital Course - Lab Results Lab Results: Micro Results 04/26/16 00:40 Leg - Right Gram Stain - Final 04/26/16 00:40 Leg - Right Wound Culture - Final Acinetobacter Baumannii Most Recent Lab Values WBC 2.8 10^3/ul (4.5-11.0) L* D 04/30/16 08:57 RBC 3.13 10^6/uL (3.5-6.1) L 04/30/16 08:57 Hgb 8.8 gm/dL (14.0-18.0) L 04/30/16 08:57 Hct 27.6 % (42.0-52.0) L 04/30/16 08:57 MCV 88.2 fL (80.0-105.0) 04/30/16 08:57 MCH 28.1 pg (25.0-35.0) 04/30/16 08:57 MCHC 31.9 g/dl (31.0-37.0) 04/30/16 08:57 RDW 19.4 % (11.5-14.5) H 04/30/16 08:57 Plt Count 68 10^3/uL (120.0-450.0) L 04/30/16 08:57 MPV 9.5 fl (7.0-11.0) 04/30/16 08:57 Gran % 43.3 % (50.0-68.0) L 04/30/16 08:57 Lymph % (Auto) 38.7 % (22.0-35.0) H 04/30/16 08:57 Russell % (Auto) 14.8 % (1.0-6.0) H 04/30/16 08:57 Eos % (Auto) 2.8 % (1.5-5.0) 04/30/16 08:57 Baso % (Auto) 0.4 % (0.0-3.0) 04/30/16 08:57 Gran # 1.23 (1.4-6.5) L 04/30/16 08:57 Lymph # 1.1 (1.2-3.4) L 04/30/16 08:57 Russell # 0.4 (0.1-0.6) 04/30/16 08:57 Eos # 0.1 (0.0-0.7) 04/30/16 08:57 Baso # 0.01 K/mm3 (0.0-2.0) 04/30/16 08:57 Retic Count 2.08 % (0.5-1.5) H 04/26/16 08:00 PT 15.5 Seconds (9.9-11.8) H 04/29/16 07:50 INR 1.44 (0.93-1.08) H 04/29/16 07:50 APTT 37.9 Seconds (23.7-30.8) H 04/26/16 07:04 Sodium 136 mmol/L (132-148) 04/29/16 07:50 Potassium 3.8 mmol/L (3.6-5.0) 04/29/16 07:50 Chloride 102 mmol/L (98-107) 04/29/16 07:50 Carbon Dioxide 26 mmol/L (21-33) 04/29/16 07:50 Anion Gap 12 (10-20) 04/29/16 07:50 BUN 13 mg/dL (7-21) 04/29/16 07:50 Creatinine 1.1 mg/dL (0.5-1.4) 04/29/16 07:50 Est GFR ( Amer) > 60 04/29/16 07:50 Est GFR (Non-Af Amer) > 60 04/29/16 07:50 Random Glucose 111 mg/dL (70-110) H 04/29/16 07:50 Calcium 8.2 mg/dL (8.4-10.5) L 04/29/16 07:50 Phosphorus 4.9 mg/dL (2.5-4.5) H 04/26/16 07:04 Magnesium 2.1 mg/dL (1.7-2.2) 04/26/16 07:04 Iron 79 ug/dL (45-180) 04/26/16 08:00 TIBC 259 ug/dL (261-462) L 04/26/16 08:00 % Saturation 31 % (20-55) 04/26/16 08:00 Ferritin 120.0 ng/mL 04/26/16 08:00 Total Bilirubin 0.9 mg/dL (0.2-1.3) 04/26/16 07:04 AST 33 U/L (15-59) 04/26/16 07:04 ALT 33 U/L (7-56) 04/26/16 07:04 Alkaline Phosphatase 55 U/L (38-133) 04/26/16 07:04 Lactate Dehydrogenase 846 U/L (333-699) H 04/25/16 16:40 Total Creatine Kinase 174 U/L (35-230) 04/25/16 16:40 Troponin I < 0.01 ng/mL 04/26/16 07:04 NT-Pro-B Natriuret Pep 703 pg/mL (0-450) H 04/25/16 16:40 Total Protein 6.7 g/dL (5.8-8.3) 04/26/16 07:04 Albumin 3.4 g/dL (3.0-4.8) 04/26/16 07:04 Globulin 3.3 gm/dL 04/26/16 07:04 Albumin/Globulin Ratio 1.0 (1.1-1.8) L 04/26/16 07:04 Vitamin B12 337 pg/mL (239-931) 04/26/16 08:00 Folate 8.4 ng/mL 04/26/16 08:00 Urine Color Yellow (YELLOW) 04/25/16 16:30 Urine Appearance Clear (CLEAR) 04/25/16 16:30 Urine pH 6.0 (4.7-8.0) 04/25/16 16:30 Ur Specific Troy 1.010 (1.005-1.035) 04/25/16 16:30 Urine Protein Negative mg/dL (<30 mg/dL) 04/25/16 16:30 Urine Glucose (UA) Negative mg/dL (NEGATIVE) 04/25/16 16:30 Urine Ketones Negative mg/dL (NEGATIVE) 04/25/16 16:30 Urine Blood Negative (NEGATIVE) 04/25/16 16:30 Urine Nitrate Negative (NEGATIVE) 04/25/16 16:30 Urine Bilirubin Negative (NEGATIVE) 04/25/16 16:30 Urine Urobilinogen 0.2 E.U./dL (<1 E.U./dL) 04/25/16 16:30 Ur Leukocyte Esterase Negative Evonne/uL (NEGATIVE) 04/25/16 16:30 Stool Occult Blood Positive (NEGATIVE) H 04/27/16 10:30 Blood Type A POSITIVE 04/25/16 22:15 Blood Type Confirm A POSITIVE 04/25/16 23:30 Antibody Screen Negative 04/25/16 22:15 BBK History Checked No verified bt 04/25/16 22:15 - Hospital Course Hospital Course: 80 year old male with past medical history of 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 Per patient, he woke up 2 days ago to find his legs bilaterally swollen, despite keeping them raised at night, and was not able to pull up his compression stockings that he usually wears. He states the swelling was not present when he went to bed. The swelling has not progressed or improved over the last 2 days, so patient became anxious and presented to the ED. He denies shortness of breath, nausea, vomiting, dizziness, focal weakness, or pain in lower extremities. Does complain of some pain/discomfort along his right chest/flank region. He states he has never had LE swelling like this previously. In the ED , patient was given Lasix, and monitored closely for hypotension. Fluid restriction started. LE doppler performed and found to have extensive DVT RLE. Therapeutic heparin started for bridge to therapeutic INR at 1.3. Upon admssion , patient's home meds were resumed. CTA no evidence of PE. MRI chest showed no evidence of cord compression. Large destructive mass lesion at the right aspect of the mid thoracic spine from T5 to T7 extending to the right paraspinal soft tissue highly suggestive of malignant neoplasm (see full report). Percocet was given for the pain. Heme/onc, cardiology, podiatry, and palliative care were consulted. Patient's sister Shaneka has been updated daily on patient's hospital course. Patient's INR remained subtherapuetic even after aggressive anticoagulation therapy. Patient reported he had recently finished a round of chemotherapy at [facility]. 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 After an extensive discussion with patient's oncologist at [facility], Dr. Mack recommends to discontinue anticoagulation therapy. Since patient's stool guaiac blood was positive and has a history IVC filter in place, his risk of bleeding outweighs benefits of anticoagulation therapy. Base on prior workups, patient is not a candidate for further radiation or immunotherapies. Discussed hospice with both patient and sister Shaneka, they agreed on home hospice on 04/29/16. Per social work case manager, patient' s sister Shaneka refused hospice later that day and would not like to be part of decision making anymore. Patient's daughter Geetha will be making all the decisions for patient from this point and on. She requested patient to be place in rehab after hospital discharge. Hospital course was explained in detailed with daughter Geetha over the phone, she understood and agreed that patient is clear to be discharged from hospital. At this time, after discussion of all issues, the patient was deemed medically fit for discharge. - Date & Time of H&P Date of H&P: 04/26/16 Time of H&P: 00:19 Discharge Exam - Head Exam Head Exam: ATRAUMATIC, NORMOCEPHALIC - Eye Exam Eye Exam: Normal appearance, PERRL Pupil Exam: PERRL - ENT Exam ENT Exam: Mucous Membranes Moist - Neck Exam Neck exam: Normal Inspection - Respiratory Exam Respiratory Exam: Clear to PA & Lateral, NORMAL BREATHING PATTERN, UNREMARKABLE. absent: Respiratory Distress - Cardiovascular Exam Cardiovascular Exam: REGULAR RHYTHM, RRR, +S1, +S2 - GI/Abdominal Exam GI & Abdominal Exam: Normal Bowel Sounds, Soft - Extremities Exam Extremities exam: joint swelling, pedal edema, pedal pulses present Additional comments: Bilateral lower extremity edema, +2 pitting edema. Chronic skin changes along bilaterally lower extremities, darked/thickened patches of skin along bilateral posterior heels, dry and cracked skin throughout LE. ELDER wrapped by podiatry. No signs of drainage. - Back Exam Back exam: paraspinal tenderness, vertebral tenderness - Neurological Exam Neurological exam: Alert, CN II-XII Intact, Oriented x3 - Psychiatric Exam Psychiatric exam: Normal Affect, Normal Mood - Skin Skin Exam: Dry, Warm Discharge Plan - Discharge Medications Prescriptions: Furosemide [Lasix] 40 mg PO BID #28 tab levoFLOXacin [Levaquin] 500 mg PO DAILY #5 tab - Follow Up Plan Condition: FAIR Disposition: REHAB FACILITY/REHAB UNIT Instructions: Chronic Pain (DC), Hospice (DC), Hospice Care (GEN) Additional Instructions: -Home hospice management after hospital discharge -Take medications as described -Follow up with [facility] oncologist and PMD Dr. Wynn for further management as needed Referrals: [facility] [Staff Provider] - Janelle Gramajo RN, BENDING MACHINE OPERATOR [Staff Provider] - <Lorenzo CUBA,Dimas - Last Filed: 05/02/16 14:06> Provider - Provider Date of Admission: 04/25/16 18:57 Attending physician: Dimas Ventura MD Hospital Course - Lab Results Lab Results: Micro Results 04/26/16 00:40 Leg - Right Gram Stain - Final 04/26/16 00:40 Leg - Right Wound Culture - Final Acinetobacter Baumannii Most Recent Lab Values WBC 2.8 10^3/ul (4.5-11.0) L* D 04/30/16 08:57 RBC 3.13 10^6/uL (3.5-6.1) L 04/30/16 08:57 Hgb 8.8 gm/dL (14.0-18.0) L 04/30/16 08:57 Hct 27.6 % (42.0-52.0) L 04/30/16 08:57 MCV 88.2 fL (80.0-105.0) 04/30/16 08:57 MCH 28.1 pg (25.0-35.0) 04/30/16 08:57 MCHC 31.9 g/dl (31.0-37.0) 04/30/16 08:57 RDW 19.4 % (11.5-14.5) H 04/30/16 08:57 Plt Count 68 10^3/uL (120.0-450.0) L 04/30/16 08:57 MPV 9.5 fl (7.0-11.0) 04/30/16 08:57 Gran % 43.3 % (50.0-68.0) L 04/30/16 08:57 Lymph % (Auto) 38.7 % (22.0-35.0) H 04/30/16 08:57 Russell % (Auto) 14.8 % (1.0-6.0) H 04/30/16 08:57 Eos % (Auto) 2.8 % (1.5-5.0) 04/30/16 08:57 Baso % (Auto) 0.4 % (0.0-3.0) 04/30/16 08:57 Gran # 1.23 (1.4-6.5) L 04/30/16 08:57 Lymph # 1.1 (1.2-3.4) L 04/30/16 08:57 Russell # 0.4 (0.1-0.6) 04/30/16 08:57 Eos # 0.1 (0.0-0.7) 04/30/16 08:57 Baso # 0.01 K/mm3 (0.0-2.0) 04/30/16 08:57 Retic Count 2.08 % (0.5-1.5) H 04/26/16 08:00 PT 15.5 Seconds (9.9-11.8) H 04/29/16 07:50 INR 1.44 (0.93-1.08) H 04/29/16 07:50 APTT 37.9 Seconds (23.7-30.8) H 04/26/16 07:04 Sodium 136 mmol/L (132-148) 04/29/16 07:50 Potassium 3.8 mmol/L (3.6-5.0) 04/29/16 07:50 Chloride 102 mmol/L (98-107) 04/29/16 07:50 Carbon Dioxide 26 mmol/L (21-33) 04/29/16 07:50 Anion Gap 12 (10-20) 04/29/16 07:50 BUN 13 mg/dL (7-21) 04/29/16 07:50 Creatinine 1.1 mg/dL (0.5-1.4) 04/29/16 07:50 Est GFR ( Amer) > 60 04/29/16 07:50 Est GFR (Non-Af Amer) > 60 04/29/16 07:50 Random Glucose 111 mg/dL (70-110) H 04/29/16 07:50 Calcium 8.2 mg/dL (8.4-10.5) L 04/29/16 07:50 Phosphorus 4.9 mg/dL (2.5-4.5) H 04/26/16 07:04 Magnesium 2.1 mg/dL (1.7-2.2) 04/26/16 07:04 Iron 79 ug/dL (45-180) 04/26/16 08:00 TIBC 259 ug/dL (261-462) L 04/26/16 08:00 % Saturation 31 % (20-55) 04/26/16 08:00 Ferritin 120.0 ng/mL 04/26/16 08:00 Total Bilirubin 0.9 mg/dL (0.2-1.3) 04/26/16 07:04 AST 33 U/L (15-59) 04/26/16 07:04 ALT 33 U/L (7-56) 04/26/16 07:04 Alkaline Phosphatase 55 U/L (38-133) 04/26/16 07:04 Lactate Dehydrogenase 846 U/L (333-699) H 04/25/16 16:40 Total Creatine Kinase 174 U/L (35-230) 04/25/16 16:40 Troponin I < 0.01 ng/mL 04/26/16 07:04 NT-Pro-B Natriuret Pep 703 pg/mL (0-450) H 04/25/16 16:40 Total Protein 6.7 g/dL (5.8-8.3) 04/26/16 07:04 Albumin 3.4 g/dL (3.0-4.8) 04/26/16 07:04 Globulin 3.3 gm/dL 04/26/16 07:04 Albumin/Globulin Ratio 1.0 (1.1-1.8) L 04/26/16 07:04 Vitamin B12 337 pg/mL (239-931) 04/26/16 08:00 Folate 8.4 ng/mL 04/26/16 08:00 Urine Color Yellow (YELLOW) 04/25/16 16:30 Urine Appearance Clear (CLEAR) 04/25/16 16:30 Urine pH 6.0 (4.7-8.0) 04/25/16 16:30 Ur Specific [place] 1.010 (1.005-1.035) 04/25/16 16:30 Urine Protein Negative mg/dL (<30 mg/dL) 04/25/16 16:30 Urine Glucose (UA) Negative mg/dL (NEGATIVE) 04/25/16 16:30 Urine Ketones Negative mg/dL (NEGATIVE) 04/25/16 16:30 Urine Blood Negative (NEGATIVE) 04/25/16 16:30 Urine Nitrate Negative (NEGATIVE) 04/25/16 16:30 Urine Bilirubin Negative (NEGATIVE) 04/25/16 16:30 Urine Urobilinogen 0.2 E.U./dL (<1 E.U./dL) 04/25/16 16:30 Ur Leukocyte Esterase Negative Evonne/uL (NEGATIVE) 04/25/16 16:30 Stool Occult Blood Positive (NEGATIVE) H 04/27/16 10:30 Blood Type A POSITIVE 04/25/16 22:15 Blood Type Confirm A POSITIVE 04/25/16 23:30 Antibody Screen Negative 04/25/16 22:15 BBK History Checked No verified bt 04/25/16 22:15 Attending/Attestation - Attestation I have personally seen and examined this patient.: Yes I have fully participated in the care of the patient.: Yes I have reviewed all pertinent clinical information, including history, physical exam and plan: Yes Notes (Text): 80 year old male with past medical history of 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 Patient work up reveals large destructive mass lesion at the right aspect of the mid thoracic spine from T5 to T7 extending to the right Para spinal soft tissue highly suggestive of malignant neoplasm (see full report). Percocet was given for the pain. Heme/onc, cardiology, podiatry, and palliative care were consulted. Patient family was already aware of those finding. 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 Patient is noncompliance with Brace. This was discussed in detail with him and with his sister over the phone After an extensive discussion with patient's oncologist at [facility], Dr. Mack recommends to discontinue anticoagulation therapy. Since patient's stool guaiac blood was positive and has a history IVC filter in place, his risk of bleeding outweighs benefits of anticoagulation therapy. Base on prior workups , patient is not a candidate for further radiation or immunotherapy. Discussed hospice with both patient and sister Shaneka, they agreed on home hospice on . Per social work case manager, patient's sister Shaneka refused hospice later that day and would not like to be part of decision making anymore. Patient's daughter Geetha will be making all the decisions for patient from this point and on. She requested patient to be place in rehab after hospital discharge. Hospital course was explained in detailed with daughter Geetha over the phone, and patient was discharged to rehab. Patient is DNR and DNI Prognosis is guarded.
[2016-04-30] MEDS: Ammonium Lactate 12% Lotion (225 g) EXT SCH (14:53)
[2016-04-30] MEDS: Oxycodone/Acetaminophen 5/325 mg Tab PO PRN (15:43)
--- NOTE | 2016-04-30 15:52 | PN ---
DATE: 04/30/2016 SUBJECTIVE: The patient is sitting up in chair, still has some complaints of leg pain, but otherwise no new complaints. PHYSICAL EXAMINATION: VITAL SIGNS: Temperature is 98.3, pulse of 91, respiratory rate of 20, and a blood pressure of 111/6 4. GENERAL: The patient is an elderly pleasant male lying in bed, in no acute distress. HEAD: Normocephalic, atraumatic. EYES: Pupils equal, round, reactive to light and accommodation. Extraocular muscles are intact. Th ere is pallor, no icterus is noted. NECK: Supple with no adenopathy, no JVD, no thyromegaly. LUNGS: Decreased breath sounds bilaterally with poor effort. CARDIOVASCULAR: S1, S2 is heard. The patient is tachycardic. ABDOMEN: Positive bowel sounds, soft, nontender, nondistended, no organomegaly is palpated. EXTREMITIES: There is bilateral lower extremity edema and chronic venous stasis changes. LABORATORY DATA: His white count is only 2.8, hemoglobin 8.8, hematocrit 27.6, MCV 88.2, platelet co unt of 68,000. White count diff is revealing some lymphocytosis as well as monocytosis. His director chemistry saravanan are within normal limits. Ferritin is 120. Vitamin B12 is 337. His stool guaiac was positive. ASSESSMENT AND PLAN: Elderly male with known locally advanced lung cancer, squamous cell type. The patient was tested for PD-L1, EGFR and ALK and all were negative. He is not a candidate for upfront immunotherapy and also considering his elderly age, not a candidate for aggressive chemotherapy. He has had palliative radiation to the lung mass and now has a drop in counts just from radiation alone. He will not tolerate chemotherapy secondary to severe pancytopenia with radiation alone. Continue pain management. Hold off on anticoagulation at this point as patient has stool guaiacs that are pos itive. Long discussion with family regarding palliative care and hospice placement, which they are n ot agreeable to at this point. The patient is likely going to be sent to rehab for further managemen t. We will also start patient on iron and B12 injections. Thank you for the consult, we will follow . Ann Marie Mack MD cc: [id number] TT: 04/30/2016 15:52:10 Confirmation # [id number] Dictation # [id number]
[2016-04-30 17:24] VITALS: BP 122/70; PULSE 64
[2016-04-30 18:04] VITALS: O2SAT 92
== END 2016-04-30 21:53 | DRG 300 ==
LOC: ED 14:36 → ERH 18:57 → 5RSO 22:06
PROVIDERS: ADMIT Internal Medicine; ATTEND Internal Medicine
PROC: 3E013GC Introduction of Other Therapeutic Substance into Subcutaneous Tissue, Percutaneous Approach (ICD-10-PCS; principal; 2016-04-25)
DX: I82.411 Acute embolism and thrombosis of right femoral vein (principal); I82.431 Acute embolism and thrombosis of right popliteal vein; I42.9 Cardiomyopathy, unspecified; C79.51 Secondary malignant neoplasm of bone; C78.00 Secondary malignant neoplasm of unspecified lung; C34.90 Malignant neoplasm of unspecified part of unspecified bronchus or lung; D61.818 Other pancytopenia; L03.90 Cellulitis, unspecified; L97.829 Non-pressure chronic ulcer of other part of left lower leg with unspecified severity; L97.819 Non-pressure chronic ulcer of other part of right lower leg with unspecified severity; I48.2 Chronic atrial fibrillation; I73.9 Peripheral vascular disease, unspecified; I25.10 Atherosclerotic heart disease of native coronary artery without angina pectoris; I82.401 Acute embolism and thrombosis of unspecified deep veins of right lower extremity; I27.2 Other secondary pulmonary hypertension; I87.2 Venous insufficiency (chronic) (peripheral); Z66 Do not resuscitate; M54.9 Dorsalgia, unspecified; K59.00 Constipation, unspecified; I10 Essential (primary) hypertension; R53.1 Weakness; I87.013 Postthrombotic syndrome with ulcer of bilateral lower extremity; I25.2 Old myocardial infarction; Z79.01 Long term (current) use of anticoagulants; Z92.3 Personal history of irradiation; Z80.1 Family history of malignant neoplasm of trachea, bronchus and lung; Z86.718 Personal history of other venous thrombosis and embolism; Z87.891 Personal history of nicotine dependence

== ENCOUNTER 2016-06-27 00:14 | Inpatient (IN) | payer MEDICARE, OTHER ==
[2016-06-27 00:27] VITALS: BMI 37.3
--- NOTE | 2016-06-27 00:56 | ED PDOC ---
Arrival/HPI - General Chief Complaint: Lower Extremity Problem/Injury Time Seen by Provider: 06/27/16 00:47 Historian: Patient - History of Present Illness Narrative History of Present Illness (Text): 06/27/16 00:56 Haroon Thacker is an 80 year old male, whose past medical history includes CAD, NH, DVT with IVC filter, atrial fibrillation, metastatic squamous cell lung cancer, and cardiomyopathy, who presents to the Emergency department complaining of bilateral lower extremity swelling, left greater than right for the past week. Patient reports associated redness to the area. Relative notes patient regularly takes Eliquis and has not worn his compression socks. Patient denies any fever, chills, chest pain, shortness of breath, nausea, vomiting, diarrhea, urinary symptoms, back pain, neck pain, headache, dizziness, or any other complaints. PMD: Dr. Jalil Wynn Time/Duration: 1 week Symptom Onset: Gradual Symptom Course: Unchanged Activities at Onset: Rest, Light Context: Home Past Medical History - Provider Review Nursing Documentation Reviewed: Yes - Infectious Disease Hx of Infectious Diseases: None - Tetanus Immunization Tetanus Immunization: Unknown - Cardiac Hx Cardiac Disorders: Yes Hx Congestive Heart Failure: Yes Hx Hypertension: Yes - Pulmonary Hx Lung Cancer: Yes Other/Comment: Former smoker - Neurological Hx Neurological Disorder: No - HEENT Hx HEENT Disorder: No - Renal Hx Renal Disorder: No - Endocrine/Metabolic Hx Endocrine Disorders: No - Hematological/Oncological Hx Blood Disorders: No Hx AIDS: No - Integumentary Hx Dermatological Disorder: Yes Other/Comment: BLE wounds - tx by Dr Hill - Musculoskeletal/Rheumatological Hx Falls: Yes - Gastrointestinal Hx Gastrointestinal Disorders: No - Genitourinary/Gynecological Hx Genitourinary Disorders: No Hx Reproductive Disorders: No - Psychiatric Hx Psychophysiologic Disorder: No Hx Substance Use: No - Surgical History Hx Amputation: Yes (tramatic left hand amputation) - Anesthesia Hx Anesthesia: Yes - Suicidal Assessment Feels Threatened In Home Enviroment: No Family/Social History - Physician Review Nursing Documentation Reviewed: Yes Family/Social History: No Known Family HX Smoking Status: Former Smoker Hx Alcohol Use: Yes Hx Substance Use: No Allergies/Home Meds Allergies/Adverse Reactions: Allergies No Known Allergies Allergy (Verified 04/25/16 14:45) Home Medications: Home Meds Medication Instructions Recorded Confirmed Carvedilol [Coreg] 3.125 mg PO BID 07/30/15 06/27/16 Isosorbide Mononitrate [Isosorbide 60 mg PO DAILY 07/30/15 06/27/16 Mononitrate ER] Ammonium Lactate 12% [Lac-Hydrin 1 applic EXT DAILY 04/25/16 06/27/16 12% Lotion (225 g)] Enalapril Maleate [Vasotec] 5 mg PO DAILY 04/25/16 06/27/16 Ondansetron [Zofran Tab] 4 mg PO Q4H PRN 04/25/16 06/27/16 oxyCODONE/Acetaminophen [Percocet 1 tab PO Q12 PRN 04/25/16 06/27/16 5/325 mg Tab] Amiodarone HCl [Pacerone] 200 mg PO DAILY 06/27/16 06/27/16 Apixaban [Eliquis] 1 tab PO BID 06/27/16 06/27/16 Aspirin [Aspirin Chewable] 1 tab PO DAILY 06/27/16 06/27/16 Lidocaine 5% [Lidoderm] 1 patch TD Q12H 06/27/16 06/27/16 Review of Systems - Physician Review All systems were reviewed & negative as marked: Yes - Review of Systems Constitutional: Normal. absent: Fevers Eyes: Normal ENT: Normal Respiratory: Normal. absent: SOB, Cough Cardiovascular: Normal. absent: Chest Pain Gastrointestinal: Normal. absent: Abdominal Pain, Diarrhea, Nausea, Vomiting Genitourinary Male: Normal. absent: Dysuria, Frequency, Hematuria, Urinary Output Changes Musculoskeletal: Other (+bilatera lower extremity swelling). absent: Back Pain , Neck Pain Skin: Normal. absent: Rash Neurological: Normal. absent: Headache, Dizziness Endocrine: Normal Hemo/Lymphatic: Normal Psychiatric: Normal Physical Exam Vital Signs Reviewed: Yes Vital Signs Temp Pulse Pulse Pulse Resp BP Pulse Ox 06/27/16 06:01 97.8 F 78 80 78 20 124/65 06/27/16 04:14 98 F 76 20 115/78 97 06/27/16 00:14 99.0 F 73 20 108/74 94 L Temperature: Afebrile Blood Pressure: Normal Pulse: Regular Respiratory Rate: Normal Appearance: Positive for: Well-Appearing, Non-Toxic, Comfortable Pain Distress: None Mental Status: Positive for: Alert and Oriented X 3 - Systems Exam Head: Present: Atraumatic, Normocephalic Pupils: Present: PERRL Extroacular Muscles: Present: EOMI Conjunctiva: Present: Normal Mouth: Present: Moist Mucous Membranes Neck: Present: Normal Range of Motion Respiratory/Chest: Present: Clear to Auscultation, Good Air Exchange. No: Respiratory Distress, Accessory Muscle Use Cardiovascular: Present: Regular Rate and Rhythm, Normal S1, S2. No: Murmurs Abdomen: Present: Normal Bowel Sounds. No: Tenderness, Distention, Peritoneal Signs Back: Present: Normal Inspection Upper Extremity: Present: Normal Inspection. No: Cyanosis, Edema Lower Extremity: Present: Swelling (Bilateral lower leg swelling, left greater than right), Erythema (Left lower leg erythema). No: Edema Neurological: Present: GCS=15, CN II-XII Intact, Speech Normal Skin: Present: Warm, Dry, Normal Color. No: Rashes Psychiatric: Present: Alert, Oriented x 3, Normal Insight, Normal Concentration Medical Decision Making ED Course and Treatment: 06/27/16 00:56 Impression: 80 year old male complaining of bilateral lower extremity swelling, left greater than right. Differential Diagnosis include but are not limited to: DVT vs. cellulitis Plan: -- EKG -- Chest X-ray -- US Duplex Lower Extremities -- Labs -- Reassess and disposition Prior Visits: Notes and results from previous visits were reviewed. Progress Notes: Reviewed EKG, a fib at 75 bpm. Inferior infarct. Non-specific ST/T wave changes. 06/27/16 02:48 Reviewed sono, US Duplex Lower Extremities positive for left-sided DVT. 06/27/16 03:02 Reviewed radiology, Chest X-ray shows no acute processes. 06/27/16 03:[address] Joe Tapia.Pt. has IVC filter in place. Accepts pt in to hospitalist service.To ED to evaluate.Pt will be admitted to [facility] for DVT. 06/27/16 03:15 Case discussed with medical review coordinator online content editor, who is aware and agrees with plan. - Lab Interpretations Lab Results: 06/27/16 00:30 06/27/16 01:25 Lab Results 06/27/16 01:25: Sodium 133, Potassium 4.2, Chloride 101, Carbon Dioxide 23, Anion Gap 13, BUN 22 H, Creatinine 1.5 H, Est GFR ( Amer) 54, Est GFR ( Non-Af Amer) 45, Random Glucose 94, Calcium 8.3 L, Total Bilirubin 0.7, AST 25, ALT 25, Alkaline Phosphatase 55, Total Protein 7.6, Albumin 3.6, Globulin 4.0, Albumin/Globulin Ratio 0.9 L 06/27/16 00:30: WBC 3.2 L, RBC 2.80 L, Hgb 7.6 L, Hct 24.0 L, MCV 85.7, MCH 27.1 , MCHC 31.7, RDW 18.9 H, Plt Count 206, MPV 9.1 06/27/16 00:30: PT 13.9 H, INR 1.29 H, APTT 35.0 H I have reviewed the lab results: Yes - RAD Interpretation Radiology Orders: 06/27/16 00:52 DUPLEX LOWER EXTRM VEIN BILAT [US] Stat 06/27/16 01:02 CHEST PORTABLE [RAD] Stat - EKG Interpretation Interpreted by ED Physician: Yes Type: 12 lead EKG - Medication Orders Current Medication Orders: Amiodarone HCl (Cordarone) 200 mg PO DAILY [facility] Last Admin: 06/27/16 09:55 Dose: 200 mg Aspirin (Aspirin Chewable) 81 mg PO DAILY [facility] Last Admin: 06/27/16 09:55 Dose: 81 mg Carvedilol (Coreg) 3.125 mg PO BID [facility] Last Admin: 06/27/16 17:28 Dose: 3.125 mg Furosemide (Lasix) 40 mg PO BID [facility] Last Admin: 06/27/16 17:27 Dose: 40 mg Isosorbide Mononitrate (Imdur) 60 mg PO DAILY [facility] Last Admin: 06/27/16 09:56 Dose: 60 mg Lactic Acid (Lac-Hydrin 12% Lotion (225 G)) 0 gm EXT DAILY [facility] Last Admin: 06/27/16 10:40 Dose: 1 applic Lidocaine (Lidoderm) 1 ea TD Q12 [facility] Last Admin: 06/27/16 09:56 Dose: 1 ea Lisinopril (Zestril) 5 mg PO DAILY [facility] Last Admin: 06/27/16 09:56 Dose: 5 mg Ondansetron HCl (Zofran Tab) 4 mg PO Q4H PRN PRN Reason: Nausea/Vomiting Oxycodone/Acetaminophen (Percocet 5/325 Mg Tab) 1 tab PO Q12 PRN PRN Reason: Pain, moderate (4-7) Stop: 06/30/16 04:12 Discontinued Medications Furosemide (Lasix) 20 mg IVP ONCE ONE Stop: 06/27/16 11:32 Last Admin: 06/27/16 16:38 Dose: 20 mg Polyethylene Glycol (Miralax) 17 gm PO ONCE ONE Stop: 06/27/16 11:09 Last Admin: 06/27/16 11:38 Dose: 17 gm Sodium Phosphate (Fleet Enema) 135 ml RC ONCE ONE Stop: 06/27/16 16:19 Last Admin: 06/27/16 17:27 Dose: 135 ml - Scribe Statement The provider has reviewed the documentation as recorded by the Scribindigo Valencia All medical record entries made by the Luis Mibindigo were at my direction and personally dictated by me. I have reviewed the chart and agree that the record accurately reflects my personal performance of the history, physical exam, medical decision making, and the department course for this patient. I have also personally directed, reviewed, and agree with the discharge instructions and disposition. Disposition/Present on Arrival - Present on Arrival Any Indicators Present on Arrival: No History of DVT/PE: Yes History of Uncontrolled Diabetes: No Urinary Catheter: No History of Decub. Ulcer: No History Surgical Site Infection Following: None - Disposition Have Diagnosis and Disposition been Completed?: Yes Diagnosis: DVT (deep venous thrombosis) Disposition: HOSPITALIZED Disposition Time: 03:15 Patient Problems: Current Active Problems Problem Status Onset DVT (deep venous thrombosis) Chronic Condition: GOOD
[2016-06-27 01:14] LABS: MEAN CELL VOLUME 85.7 fL (80.0-105.0); MEAN CORPUSCULAR HEMOGLOBIN 27.1 pg (25.0-35.0); MEAN CORPUSCULAR HGB CONC 31.7 g/dl (31.0-37.0); MEAN PLATELET VOLUME 9.1 fl (7.0-11.0); RED CELL DISTRIBUTION WIDTH 18.9 % (11.5-14.5); WHITE BLOOD COUNT 3.2 10^3/ul (4.5-11.0)
[2016-06-27 01:22] LABS: INR 1.29 (0.93-1.08)
[2016-06-27 01:44] LABS: ALB/GLOB RATIO 0.9 (1.1-1.8); BILIRUBIN,TOTAL 0.7 mg/dL (0.2-1.3); CALCIUM 8.3 mg/dL (8.4-10.5); POTASSIUM 4.2 mmol/L (3.6-5.0); TOTAL PROTEIN 7.6 g/dL (5.8-8.3)
[2016-06-27] MEDS ORDERED: Oxycodone/Acetaminophen 5/325 mg Tab PO PRN (04:11)
--- NOTE | 2016-06-27 04:25 | CP.PCM.HP ---
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 Per patient's daughter, patient was recent discharged from subacute rehab facility. Patient uses compression stocking and keep LE elevated at night but the swelling persisted. Patient reports his LE have getting redder and more painful. Patient is currently on Eliquis. Patient' s wants his daughter Geetah to make all his medical decisions. During last admission, patient's oncologist from [facility] stated that due to patient's advanced cancer metastasis, patient is not a candidate for further radiation or immunotherapies. Patient and family were recommended home hospice but insisted on going to subacute rehab. Patient denies having fever, chills, chest pain, shortness of breath, nausea, vomiting, diarrhea, or urinary symptoms. PMD: Dr. Wynn PMH: PVD, Afib, MS, CAD, DVT with IVC filter, cardiomyopathy, chronic LE ulcers PSH: IVC filter placement, left fingers amputation FHx: sister had lung cancer, no Hx of vascular disease Social Hx: Former smoker of 30 years, social alcohol use, denies other drug use. 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 absent: Chills, Fever, Weakness - EENT Eyes: As Per HPI. absent: Change in Vision Ears: As Per HPI. absent: Dizziness Nose/Mouth/Throat: As Per HPI. absent: Nasal Congestion - Cardiovascular Cardiovascular: As Per HPI. absent: Chest Pain - Respiratory Respiratory: As Per HPI. absent: Cough, Dyspnea - Gastrointestinal Gastrointestinal: As Per HPI. absent: Abdominal Pain, Diarrhea, Nausea, Vomiting - Genitourinary Genitourinary: As Per HPI. absent: Hematuria, Urinary Frequency, Urinary Hesitance - Musculoskeletal Musculoskeletal: As Per HPI, Back Pain - Integumentary Integumentary: As Per HPI, Dry Skin (bilateral lower extremity) - Neurological Neurological: As Per HPI. absent: Dizziness, Headaches - Psychiatric Psychiatric: As Per HPI. absent: Anxiety, Irritability - Endocrine Endocrine: As Per HPI - Hematologic/Lymphatic Hematologic: As Per HPI Past Patient History - Infectious Disease Hx of Infectious Diseases: None - Tetanus Immunizations Tetanus Immunization: Unknown - Past Medical History & Family History Past Medical History?: Yes - Past Social History Smoking Status: Former Smoker - CARDIAC Hx Cardiac Disorders: Yes Hx Congestive Heart Failure: Yes Hx Hypertension: Yes - PULMONARY Hx Lung Cancer: Yes Other/Comment: Former smoker - NEUROLOGICAL Hx Neurological Disorder: No - HEENT Hx HEENT Problems: No - RENAL Hx Chronic Kidney Disease: No - ENDOCRINE/METABOLIC Hx Endocrine Disorders: No - HEMATOLOGICAL/ONCOLOGICAL Hx Blood Disorders: No Hx AIDS: No - INTEGUMENTARY Hx Dermatological Problems: Yes Other/Comment: BLE wounds - tx by Dr Hill - MUSCULOSKELETAL/RHEUMATOLOGICAL Hx Falls: Yes - GASTROINTESTINAL Hx Gastrointestinal Disorders: No - GENITOURINARY/GYNECOLOGICAL Hx Genitourinary Disorders: No Hx Reproductive Disorders: No - PSYCHIATRIC Hx Psychophysiologic Disorder: No Hx Substance Use: No - SURGICAL HISTORY Hx Amputation: Yes (tramatic left hand amputation) - ANESTHESIA Hx Anesthesia: Yes Meds Allergies/Adverse Reactions: Allergies Allergy/AdvReac Type Severity Reaction Status Date / Time No Known Allergies Allergy Verified 04/25/16 14:45 Physical Exam - Constitutional Appears: Non-toxic, No Acute Distress - Head Exam Head Exam: ATRAUMATIC, NORMAL INSPECTION, NORMOCEPHALIC - Eye Exam Eye Exam: EOMI, Normal appearance, PERRL - ENT Exam ENT Exam: Mucous Membranes Moist - Neck Exam Neck exam: Positive for: Normal Inspection - Respiratory Exam Respiratory Exam: Clear to Auscultation Bilateral, NORMAL BREATHING PATTERN. absent: Rhonchi, Wheezes, Respiratory Distress - Cardiovascular Exam Cardiovascular Exam: REGULAR RHYTHM, RRR, +S1, +S2 - GI/Abdominal Exam GI & Abdominal Exam: Normal Bowel Sounds, Soft. absent: Tenderness - Extremities Exam Extremities exam: Positive for: calf tenderness, joint swelling, pedal edema, tenderness - Back Exam Back exam: NORMAL INSPECTION - Neurological Exam Neurological exam: Alert, Oriented x3 - Psychiatric Exam Psychiatric exam: Normal Affect, Normal Mood - Skin Skin Exam: Dry, Warm Results - Vital Signs Recent Vital Signs: Last Vital Signs Temp 99.0 F 06/27/16 00:14 Pulse 73 06/27/16 00:14 Resp 20 06/27/16 00:14 BP 108/74 06/27/16 00:14 Pulse Ox 94 L 06/27/16 00:14 - Labs Result Diagrams: 06/27/16 00:30 06/27/16 01:25 Assessment & Plan - Assessment and Plan (Free Text) Assessment: 80 year old male with PMH notable for 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 Large destructive mass lesion at the right aspect of the mid thoracic spine from T5 to T7 extending to the right paraspinal soft tissue highly suggestive of malignant neoplasm (see full report from 04/2016). -Patient was evaluated by neurosurgery at [facility], was instructed to where back brace while ambulating. -Percocet q12 prn for pain -Zofran 4mg q6 prn CAD with prior MS -continue home eliquis, amiodarone, asa, coreg, lisinopril, isosorbide mononitrate Afib subtherapeutic on Warfarin -continue home coreg, asa, eliquis -INR monitor Anemia -Hgb 7.6 on admission -continue to monitor Prophylactic measures -Hold PPI due to leukopenia -Lovenox
[2016-06-27] MEDS: Lidocaine 5% Patch TD SCH (09:56)
[2016-06-27] MEDS ORDERED: Enoxaparin 40 mg Syringe SC SCH (10:00)
[2016-06-27] MEDS: Ammonium Lactate 12% Lotion (225 g) EXT SCH (10:40)
[2016-06-27] MEDS ORDERED: POLYETHYLENE GLYCOL 3350 17 GM/Dose PACKET PO ONE (11:08)
--- NOTE | 2016-06-27 11:29 | CP.PCM.PN ---
<SelvinDeepak - Last Filed: 06/27/16 11:21> Subjective - Date & Time of Evaluation Date of Evaluation: 06/27/16 Time of Evaluation: 11:21 - Subjective Subjective: Medicine Progress note. Dr. Ventura Update: Discussed case with Daughter and Sister at length. Daughter, Geetha Otero - [phone]. Plans to come to the hospital today to visit Sister, Shaneka Thacker - [phone]. Since last admission at [facility], patient has followed up with his primary oncologist at [facility] and was started on Chemo with a plan to complete 6 cycles. Gemcitabine and Carboplatin. He received his first cycle starting on June 22. Next appointments are June 29 and July 06. Patient's Hb is 7.6. Plan to transfuse 1U PRBCs today. This will be followed by nikkie. Patient was evaluated by Dr. Mack on his previous admission. Advised to stop anticoagulation due to hemacult positive stool and anemia. His anemia is worse today. We have stopped eliquis. We will consult Dr. Mack in order to follow up with recommendations. Patient also c/o constipation. We will treat today in order to facilitate bowel fxn. Objective - Vital Signs/Intake and Output Vital Signs (last 24 hours): Temp Pulse Resp BP Pulse Ox 97.8 F 78 20 124/65 99 06/27/16 07:37 06/27/16 09:55 06/27/16 07:37 06/27/16 09:55 06/27/16 07:37 - Medications Medications: Current Medications Amiodarone HCl (Cordarone) 200 mg PO DAILY [facility] Last Admin: 06/27/16 09:55 Dose: 200 mg Aspirin (Aspirin Chewable) 81 mg PO DAILY [facility] Last Admin: 06/27/16 09:55 Dose: 81 mg Carvedilol (Coreg) 3.125 mg PO BID [facility] Last Admin: 06/27/16 09:56 Dose: 3.125 mg Furosemide (Lasix) 40 mg PO BID [facility] Last Admin: 06/27/16 09:55 Dose: 40 mg Isosorbide Mononitrate (Imdur) 60 mg PO DAILY [facility] Last Admin: 06/27/16 09:56 Dose: 60 mg Lactic Acid (Lac-Hydrin 12% Lotion (225 G)) 0 gm EXT DAILY [facility] Last Admin: 06/27/16 10:40 Dose: 1 applic Lidocaine (Lidoderm) 1 ea TD Q12 [facility] Last Admin: 06/27/16 09:56 Dose: 1 ea Lisinopril (Zestril) 5 mg PO DAILY [facility] Last Admin: 06/27/16 09:56 Dose: 5 mg Ondansetron HCl (Zofran Tab) 4 mg PO Q4H PRN PRN Reason: Nausea/Vomiting Oxycodone/Acetaminophen (Percocet 5/325 Mg Tab) 1 tab PO Q12 PRN PRN Reason: Pain, moderate (4-7) Stop: 06/30/16 04:12 - Labs Labs: PT 13.9 Seconds (9.9-11.8) H 06/27/16 00:30 INR 1.29 (0.93-1.08) H 06/27/16 00:30 APTT 35.0 Seconds (23.7-30.8) H 06/27/16 00:30 <Dimas Ventura MD - Last Filed: 06/27/16 14:27> Objective - Vital Signs/Intake and Output Vital Signs (last 24 hours): Temp Pulse Resp BP Pulse Ox 98.0 F 68 18 106/60 99 06/27/16 13:56 06/27/16 13:56 06/27/16 13:56 06/27/16 13:56 06/27/16 07:37 Intake and Output: 06/27/16 06/27/16 06:59 18:59 Intake Total 0 Balance 0 - Medications Medications: Current Medications Amiodarone HCl (Cordarone) 200 mg PO DAILY [facility] Last Admin: 06/27/16 09:55 Dose: 200 mg Aspirin (Aspirin Chewable) 81 mg PO DAILY [facility] Last Admin: 06/27/16 09:55 Dose: 81 mg Carvedilol (Coreg) 3.125 mg PO BID [facility] Last Admin: 06/27/16 09:56 Dose: 3.125 mg Furosemide (Lasix) 40 mg PO BID [facility] Last Admin: 06/27/16 09:55 Dose: 40 mg Isosorbide Mononitrate (Imdur) 60 mg PO DAILY [facility] Last Admin: 06/27/16 09:56 Dose: 60 mg Lactic Acid (Lac-Hydrin 12% Lotion (225 G)) 0 gm EXT DAILY [facility] Last Admin: 06/27/16 10:40 Dose: 1 applic Lidocaine (Lidoderm) 1 ea TD Q12 [facility] Last Admin: 06/27/16 09:56 Dose: 1 ea Lisinopril (Zestril) 5 mg PO DAILY [facility] Last Admin: 06/27/16 09:56 Dose: 5 mg Ondansetron HCl (Zofran Tab) 4 mg PO Q4H PRN PRN Reason: Nausea/Vomiting Oxycodone/Acetaminophen (Percocet 5/325 Mg Tab) 1 tab PO Q12 PRN PRN Reason: Pain, moderate (4-7) Stop: 06/30/16 04:12 - Labs Labs: PT 13.9 Seconds (9.9-11.8) H 06/27/16 00:30 INR 1.29 (0.93-1.08) H 06/27/16 00:30 APTT 35.0 Seconds (23.7-30.8) H 06/27/16 00:30 Attending/Attestation - Attestation I have personally seen and examined this patient.: Yes I have fully participated in the care of the patient.: Yes I have reviewed all pertinent clinical information, including history, physical exam and plan: Yes Notes (Text): 06/27/16 14:27 80 year old male with past medical history of squamous cell carcinoma with mets to thoracic Vertebra (was evaluated by Neurosurgery at [facility], Brace was recommended), PVD, , CAD, SP [place], DVT with IVC filter, cardiomyopathy, afib, chronic LE ulcers, and traumatic amputation of left fingers is admitted with swelling of leg. He is found to have right common femoral vein, patient was previously on anticoagulation, however last admission , patient's stool guaiac blood was positive and has a history IVC filter in place, his risk of bleeding outweighs benefits of anticoagulation and anticoagulation was discontinued on the recommendation of Dr. Mack.Patient hemoglobin is slowly dropping, his Apixiban has been discontinued. We will give him one unit of PRBC. Patient is noncompliance with his brace, was discussed in detail with him. We will get Oncology and hospice consult. Patient is DNR and DNI Prognosis is guarded.
--- NOTE | 2016-06-27 12:06 | RAD ---
HISTORY: medical clearance COMPARISON: 04/25/2016 FINDINGS: LUNGS: No active pulmonary disease. PLEURA: No significant pleural effusion identified, no pneumothorax apparent. CARDIOVASCULAR: Mild cardiomegaly. Right central venous infusion port, new since prior examination OSSEOUS STRUCTURES: No significant abnormalities. VISUALIZED UPPER ABDOMEN: Normal. OTHER FINDINGS: None. IMPRESSION: No active disease.
--- NOTE | 2016-06-27 13:29 | US ---
HISTORY: Leg pain and swelling. Evaluate for DVT PHYSICIAN(S): oRsas Brown MD. TECHNIQUE: Duplex sonography and color-flow Doppler with graded compression were used to evaluate the deep venous systems of both lower extremities. FINDINGS: Hypoechoic occlusive acute thrombus is noted in the left common femoral vein, femoral vein, and popliteal vein. There is no sonographic evidence for deep venous thrombosis the visualized segments of the right lower extremity. The tibial veins are not adequately seen. . IMPRESSION: Extensive acute occlusive thrombus in the left common femoral vein, femoral vein, and popliteal vein. Limited study.
--- NOTE | 2016-06-28 01:37 | CARD ---
APPROVED REPORT EKG Measurement Heart [id number] <Conclusion> Atrial fibrillation Low voltage QRS Inferior infarct, age undetermined Cannot rule out Anteroseptal infarct, age undetermined Abnormal ECG
[2016-06-28 07:35] LABS: BASO # 0.03 K/mm3 (0.0-2.0); BASO % 1.7 % (0.0-3.0); EOS # 0.1 (0.0-0.7); EOS % 4.7 % (1.5-5.0); GRAN # 1.08 (1.4-6.5); GRAN % 62.8 % (50.0-68.0); HEMATOCRIT 25.4 % (42.0-52.0); LYMPH # 0.5 (1.2-3.4); LYMPH % 28.5 % (22.0-35.0); MEAN CELL VOLUME 83.8 fL (80.0-105.0); MEAN CORPUSCULAR HEMOGLOBIN 26.7 pg (25.0-35.0); MEAN CORPUSCULAR HGB CONC 31.9 g/dl (31.0-37.0); MEAN PLATELET VOLUME 9.1 fl (7.0-11.0); MONO % 2.3 % (1.0-6.0); PLATELET COUNT 170 10^3/uL (120.0-450.0); RED CELL DISTRIBUTION WIDTH 18.6 % (11.5-14.5)
[2016-06-28 07:50] VITALS: BP 107/54; PULSE 78; RESP 20; TEMP 98.2; O2SAT 97
[2016-06-28 07:51] LABS: WHITE BLOOD COUNT 1.7 10^3/ul (4.5-11.0)
[2016-06-28 07:52] LABS: ADD MANUAL DIFF? NO
[2016-06-28 08:00] LABS: ALB/GLOB RATIO 0.9 (1.1-1.8); ALKALINE PHOSPHATASE 61 U/L (38-133); ALT/SGPT 24 U/L (7-56); AST/SGOT 27 U/L (15-59); BILIRUBIN,TOTAL 0.8 mg/dL (0.2-1.3); BLOOD UREA NITROGEN 16 mg/dL (7-21); CALCIUM 8.5 mg/dL (8.4-10.5); CARBON DIOXIDE 27 mmol/L (21-33); CHLORIDE 100 mmol/L (95-110); GFR AFRICAN-AMERICAN > 60; GLUCOSE,RANDOM 98 mg/dL (70-110); SODIUM 137 mmol/L (132-148); TOTAL PROTEIN 7.7 g/dL (5.8-8.3)
[2016-06-28] MEDS: Lidocaine 5% Patch TD SCH (09:11)
[2016-06-28] MEDS: Ammonium Lactate 12% Lotion (225 g) EXT SCH (09:22)
--- NOTE | 2016-06-28 15:20 | CP.PCM.DIS ---
<Deepak Montalvo - Last Filed: 06/29/16 17:57> Provider - Provider Date of Admission: 06/27/16 03:20 Attending physician: Shannon Gracia MD Primary care physician: Fabien Wynn MD Consults: Heme/Onc: [place] Palliative Care: Cristiana Paramonte Time Spent in preparation of Discharge (in minutes): 45 Hospital Course - Lab Results Lab Results: Most Recent Lab Values WBC 1.7 10^3/ul (4.5-11.0) L* D 06/28/16 07:00 RBC 3.03 10^6/uL (3.5-6.1) L 06/28/16 07:00 Hgb 8.1 gm/dL (14.0-18.0) L 06/28/16 07:00 Hct 25.4 % (42.0-52.0) L 06/28/16 07:00 MCV 83.8 fL (80.0-105.0) 06/28/16 07:00 MCH 26.7 pg (25.0-35.0) 06/28/16 07:00 MCHC 31.9 g/dl (31.0-37.0) 06/28/16 07:00 RDW 18.6 % (11.5-14.5) H 06/28/16 07:00 Plt Count 170 10^3/uL (120.0-450.0) 06/28/16 07:00 MPV 9.1 fl (7.0-11.0) 06/28/16 07:00 Gran % 62.8 % (50.0-68.0) 06/28/16 07:00 Lymph % (Auto) 28.5 % (22.0-35.0) 06/28/16 07:00 [place] % (Auto) 2.3 % (1.0-6.0) 06/28/16 07:00 Eos % (Auto) 4.7 % (1.5-5.0) 06/28/16 07:00 Baso % (Auto) 1.7 % (0.0-3.0) 06/28/16 07:00 Gran # 1.08 (1.4-6.5) L 06/28/16 07:00 Lymph # 0.5 (1.2-3.4) L 06/28/16 07:00 [place] # 0.0 (0.1-0.6) L 06/28/16 07:00 Eos # 0.1 (0.0-0.7) 06/28/16 07:00 Baso # 0.03 K/mm3 (0.0-2.0) 06/28/16 07:00 PT 13.9 Seconds (9.9-11.8) H 06/27/16 00:30 INR 1.29 (0.93-1.08) H 06/27/16 00:30 APTT 35.0 Seconds (23.7-30.8) H 06/27/16 00:30 Sodium 137 mmol/L (132-148) 06/28/16 07:00 Potassium 4.0 mmol/L (3.6-5.0) 06/28/16 07:00 Chloride 100 mmol/L (95-110) 06/28/16 07:00 Carbon Dioxide 27 mmol/L (21-33) 06/28/16 07:00 Anion Gap 14 (10-20) 06/28/16 07:00 BUN 16 mg/dL (7-21) 06/28/16 07:00 Creatinine 1.3 mg/dL (0.5-1.4) 06/28/16 07:00 Est GFR ( Amer) > 60 06/28/16 07:00 Est GFR (Non-Af Amer) 53 06/28/16 07:00 Random Glucose 98 mg/dL (70-110) 06/28/16 07:00 Calcium 8.5 mg/dL (8.4-10.5) 06/28/16 07:00 Total Bilirubin 0.8 mg/dL (0.2-1.3) 06/28/16 07:00 AST 27 U/L (15-59) 06/28/16 07:00 ALT 24 U/L (7-56) 06/28/16 07:00 Alkaline Phosphatase 61 U/L (38-133) 06/28/16 07:00 Total Protein 7.7 g/dL (5.8-8.3) 06/28/16 07:00 Albumin 3.8 g/dL (3.0-4.8) 06/28/16 07:00 Globulin 4.0 gm/dL 06/28/16 07:00 Albumin/Globulin Ratio 0.9 (1.1-1.8) L 06/28/16 07:00 Blood Type A POSITIVE 06/27/16 10:00 Antibody Screen Negative 06/27/16 10:00 Crossmatch See Detail 06/27/16 10:00 BBK History Checked Patient has bt 06/27/16 10:00 - Hospital Course Hospital Course: Upon Admission: 80yo M with PMHx of 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 Discussed case with patient's sister who states that the patient has his primary oncologist at [facility] who recently started him on chemo and he is supposed to complete 6 cycles. Upon last admission to [facility] in April 2016, patient had DVT and the decision was made at that time to stop anticoagulation since there was concern for bleeding due to hemoccult positive and anemia. He had since followed up with his oncologist at [facility] and was started on apixaban. Patient's Hb during this admission was 7.6 and was given 1U of pRBC. Apixaban was again held due to bleeding concern. Hematology consult was obtained and the case was discussed case with Dr. Mack. She recommends that the patient follow up with his primary out-patient oncologist for further management. LE doppler upon this admission shows acute DVT. The decision was then made to recheck stool hemeoccult and if negative, he would be restarted on Apixaban. Patient received his home regimen of lasix 40mg PO bid and received extra doses of lasix IV as needed. Patient did not provide us a stool sample in order for hemeoccult testing. Patient's daughter requested to sign the patient out against medical advice in order to follow up with Dr. Rosas Brown for vascular opinion and would like to take the patient to his primary oncologist at [facility]. The risks of her/patient's decision were discussed in detail with the patient and family. They accepted and elected to sign out against medical advice. 1. Advanced Squamous cell lung CA; f/u with primary heme/onc 2. Acute DVT; f/u with primary heme/onc 3. Hx of CAD - continue home meds Patient signed out against medical advice. Discharge Exam - Head Exam Head Exam: ATRAUMATIC, NORMAL INSPECTION, NORMOCEPHALIC - Eye Exam Eye Exam: EOMI, Normal appearance. absent: Scleral icterus Pupil Exam: PERRL - ENT Exam ENT Exam: Mucous Membranes Moist - Respiratory Exam Respiratory Exam: Clear to PA & Lateral, UNREMARKABLE. absent: Decreased Breath Sounds, Rhonchi, Wheezes, Respiratory Distress, Stridor - Cardiovascular Exam Cardiovascular Exam: RRR, +S1, +S2 - GI/Abdominal Exam GI & Abdominal Exam: Soft, Unremarkable. absent: Distended, Firm, Guarding - Extremities Exam Additional comments: bilateral pretibial 1+ pitting edema - Neurological Exam Neurological exam: Alert, Oriented x3 - Psychiatric Exam Psychiatric exam: Normal Affect, Normal Mood Discharge Plan - Follow Up Plan Condition: GOOD Disposition: AGAINST MEDICAL ADVICE Referrals: Fabien Wynn MD [Primary Care Provider] - <Shannon Gracia - Last Filed: 06/30/16 07:42> Provider - Provider Date of Admission: 06/27/16 03:20 Attending physician: Shannon Gracia MD Primary care physician: Fabien Wynn MD Hospital Course - Lab Results Lab Results: Most Recent Lab Values WBC 1.7 10^3/ul (4.5-11.0) L* D 06/28/16 07:00 RBC 3.03 10^6/uL (3.5-6.1) L 06/28/16 07:00 Hgb 8.1 gm/dL (14.0-18.0) L 06/28/16 07:00 Hct 25.4 % (42.0-52.0) L 06/28/16 07:00 MCV 83.8 fL (80.0-105.0) 06/28/16 07:00 MCH 26.7 pg (25.0-35.0) 06/28/16 07:00 MCHC 31.9 g/dl (31.0-37.0) 06/28/16 07:00 RDW 18.6 % (11.5-14.5) H 06/28/16 07:00 Plt Count 170 10^3/uL (120.0-450.0) 06/28/16 07:00 MPV 9.1 fl (7.0-11.0) 06/28/16 07:00 Gran % 62.8 % (50.0-68.0) 06/28/16 07:00 Lymph % (Auto) 28.5 % (22.0-35.0) 06/28/16 07:00 Gila % (Auto) 2.3 % (1.0-6.0) 06/28/16 07:00 Eos % (Auto) 4.7 % (1.5-5.0) 06/28/16 07:00 Baso % (Auto) 1.7 % (0.0-3.0) 06/28/16 07:00 Gran # 1.08 (1.4-6.5) L 06/28/16 07:00 Lymph # 0.5 (1.2-3.4) L 06/28/16 07:00 Gila # 0.0 (0.1-0.6) L 06/28/16 07:00 Eos # 0.1 (0.0-0.7) 06/28/16 07:00 Baso # 0.03 K/mm3 (0.0-2.0) 06/28/16 07:00 PT 13.9 Seconds (9.9-11.8) H 06/27/16 00:30 INR 1.29 (0.93-1.08) H 06/27/16 00:30 APTT 35.0 Seconds (23.7-30.8) H 06/27/16 00:30 Sodium 137 mmol/L (132-148) 06/28/16 07:00 Potassium 4.0 mmol/L (3.6-5.0) 06/28/16 07:00 Chloride 100 mmol/L (95-110) 06/28/16 07:00 Carbon Dioxide 27 mmol/L (21-33) 06/28/16 07:00 Anion Gap 14 (10-20) 06/28/16 07:00 BUN 16 mg/dL (7-21) 06/28/16 07:00 Creatinine 1.3 mg/dL (0.5-1.4) 06/28/16 07:00 Est GFR ( Amer) > 60 06/28/16 07:00 Est GFR (Non-Af Amer) 53 06/28/16 07:00 Random Glucose 98 mg/dL (70-110) 06/28/16 07:00 Calcium 8.5 mg/dL (8.4-10.5) 06/28/16 07:00 Total Bilirubin 0.8 mg/dL (0.2-1.3) 06/28/16 07:00 AST 27 U/L (15-59) 06/28/16 07:00 ALT 24 U/L (7-56) 06/28/16 07:00 Alkaline Phosphatase 61 U/L (38-133) 06/28/16 07:00 Total Protein 7.7 g/dL (5.8-8.3) 06/28/16 07:00 Albumin 3.8 g/dL (3.0-4.8) 06/28/16 07:00 Globulin 4.0 gm/dL 06/28/16 07:00 Albumin/Globulin Ratio 0.9 (1.1-1.8) L 06/28/16 07:00 Blood Type A POSITIVE 06/27/16 10:00 Antibody Screen Negative 06/27/16 10:00 Crossmatch See Detail 06/27/16 10:00 BBK History Checked Patient has bt 06/27/16 10:00 Attending/Attestation - Attestation I have personally seen and examined this patient.: Yes I have fully participated in the care of the patient.: Yes I have reviewed all pertinent clinical information, including history, physical exam and plan: Yes Notes (Text): 06/28/16 80 year old male with past medical history of metastatic squamous cell carcinoma , PVD, CAD, afib and DVT s/p IVC filter formerly on anticoagulation which was discontinued due to worsening anemia and heme occult + presented with complaint of lower extremity swelling and constipation. LE doppler showed DVT. He was also have to have anemia requiring prbc transfusion. His anticoagulation was held secondary to above and hematology and palliative consultations were requested. Patient signed out against medical advice today wishing to follow up with his own pmd and oncologist at [facility]. Shannon Gracia MD Hospitalist.
== END 2016-06-28 15:46 | disposition left against medical advice (07) | DRG 300 ==
LOC: ED 00:14 → ERH 03:20 → 3RNO 05:41
PROVIDERS: ADMIT Internal Medicine; ATTEND Internal Medicine
PROC: 30233N1 Transfusion of Nonautologous Red Blood Cells into Peripheral Vein, Percutaneous Approach (ICD-10-PCS; principal; 2016-06-27)
DX: I82.432 Acute embolism and thrombosis of left popliteal vein (principal); I42.9 Cardiomyopathy, unspecified; C79.51 Secondary malignant neoplasm of bone; I82.412 Acute embolism and thrombosis of left femoral vein; C34.90 Malignant neoplasm of unspecified part of unspecified bronchus or lung; L97.909 Non-pressure chronic ulcer of unspecified part of unspecified lower leg with unspecified severity; I48.2 Chronic atrial fibrillation; D64.9 Anemia, unspecified; I73.9 Peripheral vascular disease, unspecified; Z66 Do not resuscitate; I25.10 Atherosclerotic heart disease of native coronary artery without angina pectoris; K59.00 Constipation, unspecified; Z79.01 Long term (current) use of anticoagulants; I25.2 Old myocardial infarction; Z87.891 Personal history of nicotine dependence

== ENCOUNTER 2016-09-29 10:55 | Inpatient (IN) | payer MEDICARE, OTHER ==
--- NOTE | 2016-09-29 11:12 | PCM.RRTMUL ---
MANAGER SURGICAL Nurse Assessment - Situation MANAGER SURGICAL Responder Arrival Time:: 10:36 Location:: [facility] MANAGER SURGICAL Reason for Call: Hypotension, Change in Mental Status MANAGER SURGICAL Called By: RN - IV IV Inserted during MANAGER SURGICAL?: Yes IV Fluids Initiated During MANAGER SURGICAL?: 1L NS bolus - Respiratory Oxygen Delivery Method:: Nasal Cannula Received Nebulizer Treatments:: No Was the Patient Ventilated with Bag/Mask 100% O2?: No Secretions Suctioned?: No Was the Patient Intubated?: No Was the Patient Placed on a Ventilator?: No - Diagnostic Test Ordered EKG:: No Chest X-Ray:: No CT Scan:: No I.Reason for MANAGER SURGICAL - A) Acute Change in Patient: (Select all that apply): Acute change in mental status, Acute change in SBP below - A) Initial Vital Signs: Blood Pressure: 85/52 Pulse Rate: 63 O2 Sat by Pulse Oximetry: 100 (5L NC) Finger Stick Blood Glucose: 133 - B) Neurological Status (Select all that apply): Disoriented, Confused, Lethargic - C) Respiratory Oxygen Delivery Method: Nasal Cannula @L/min Oxygen Flow Rate: 5 - Constitutional Appears: Non-toxic, Confused, Chronically Ill - Head Additional Comments: diaphoretic - Eyes Eye Exam: EOMI - Respiratory Exam Respiratory Exam: NORMAL BREATHING PATTERN. absent: Accessory Muscle Use, Respiratory Distress - Cardiovascular Exam Cardiovascular Exam: REGULAR RHYTHM - GI/Abdominal Exam GI & Abdominal Exam: Soft. absent: Tenderness, Hernia, Mass, Pulsatile Mass - Neurological Exam Neurological Exam: Awake - Extremities Exam Extremities Exam: Full ROM. absent: Pedal Edema Plan - A. End of MANAGER SURGICAL Vital Signs: Blood Pressure: 110/61 Pulse Rate: 72 O2 Sat by Pulse Oximetry: 100 - B. Assessment of Findings&Treatment Plan brought to ED for syncopal episode. IVF 1 L NS Bolus monitor vitals Monitor mental status f/u CBC f/u CMP
--- NOTE | 2016-09-29 11:23 | ED PDOC ---
Arrival/HPI - General Chief Complaint: Syncope Time Seen by Provider: 09/29/16 11:16 Historian: Patient - History of Present Illness Narrative History of Present Illness (Text): 09/29/16 11:05 An 80 year old male whose past medical history includes, CAD, NV, DVT with IVC filter, atrial fibrillation, metastatic squamous cell lung cancer, and cardiomyopathy, presents to the emergency department after a witnessed syncopal episode. The patient was in the wound care center and he began to feel nauseous and sweaty before fainting. The patient spontaneously regained consciousness and is currently asymptomatic. The patient denies fevers, chills, headache, chest pain, shortness of breath, abdominal pain, vomiting, diarrhea, palpitations, or any other complaint. Time/Duration: Prior to Arrival Symptom Onset: Sudden Symptom Course: Unchanged Activities at Onset: Rest, Light Context: Home Past Medical History - Provider Review Nursing Documentation Reviewed: Yes - Infectious Disease Hx of Infectious Diseases: None - Tetanus Immunization Tetanus Immunization: Unknown - Cardiac Hx Cardiac Disorders: Yes Hx Congestive Heart Failure: Yes Hx Hypertension: Yes - Pulmonary Hx Respiratory Disorders: Yes Hx Lung Cancer: Yes Other/Comment: Former smoker - Neurological Hx Neurological Disorder: No - HEENT Hx HEENT Disorder: No - Renal Hx Renal Disorder: No - Endocrine/Metabolic Hx Endocrine Disorders: No - Hematological/Oncological Hx Blood Disorders: No Hx AIDS: No - Integumentary Hx Dermatological Disorder: Yes Other/Comment: BLE wounds - tx by Dr Hill - Musculoskeletal/Rheumatological Hx Musculoskeletal Disorders: Yes Hx Falls: Yes - Gastrointestinal Hx Gastrointestinal Disorders: No - Genitourinary/Gynecological Hx Genitourinary Disorders: No Hx Reproductive Disorders: No - Psychiatric Hx Psychophysiologic Disorder: No Hx Substance Use: No - Surgical History Hx Amputation: Yes (tramatic left hand amputation) - Anesthesia Hx Anesthesia: Yes - Suicidal Assessment Feels Threatened In Home Enviroment: No Family/Social History - Physician Review Nursing Documentation Reviewed: Yes Family/Social History: No Known Family HX Smoking Status: Former Smoker Hx Alcohol Use: No Hx Substance Use: No Allergies/Home Meds Allergies/Adverse Reactions: Allergies No Known Allergies Allergy (Verified 09/29/16 11:04) Home Medications: Home Meds Medication Instructions Recorded Confirmed Unobtainable 09/29/16 09/29/16 Physical Exam - Physical Exam Narrative Physical Exam (Text): 09/29/16 11:11 - Review of Systems Constitutional: Normal. absent: Fatigue, Weight Change, Fevers Eyes: Normal ENT: Normal Respiratory: Normal absent: SOB, Cough, Sputum Cardiovascular: Normal absent: Chest pain, Palpitations, Syncope Gastrointestinal: Normal absent: Abdominal pain, Diarrhea, Nausea, Vomiting Genitourinary: Normal. absent: Dysuria, Frequency, Hematuria Musculoskeletal: Normal. absent: Arthralgias, Back Pain, Neck Pain Skin: Normal Neurological: (+) Syncope. absent: Focal Weakness Endocrine: Normal Hemo/Lymphatic: Normal Psychiatric: Normal - Physical exam Patient appears age appropriate, speaking full sentences without difficulty - Systems Exam Head: Present: Atraumatic, Normocephalic Pupils: Present: PERRL Extraocular Muscles: Present: EOMI Conjunctiva: Present: Normal Mouth: Present: Moist Mucous Membranes Neck: Present: Normal Range of Motion. No: MIDLINE TENDERNESS, Paraspinal Tenderness Respiratory/Chest: Present: Clear to Auscultation, Good Air Exchange. No: Respiratory Distress, Accessory Muscle Use, Tachypnic Cardiovascular: Present: Regular Rate and Rhythm, Normal S1, S2, Peripheral Pulses Present. No: Murmurs Abdomen: Present: Normal Bowel Sounds, No: Tenderness, Peritoneal Signs, Rebound, Guarding, Distention Back: Present: Normal Inspection. No: Midline Tenderness, Paraspinal Tenderness Upper Extremity: Present: Normal Inspection. No: Cyanosis, Edema Lower Extremity: Present: Normal Inspection. Clean dressing over patients wounds. No: Edema Neurological: Present: GCS=15, Speech Normal, cranial nerves II through XII fully intact with no cerebellar abnormality, neuro-sensory fully intact. No focal neurological deficits. Skin: Present: Warm, Dry, Normal Color. No: Rashes Lymphatic: Present: OX3, NI, NC Psychiatric: Present: Alert, Oriented x 3, Normal Insight, Normal Concentration Vital Signs Reviewed: Yes Vital Signs Pulse Resp BP Pulse Ox 09/29/16 11:21 65 22 94/42 L 96 09/29/16 11:15 72 110/61 Blood Pressure: Normal Pulse: Regular Appearance: Positive for: Well-Appearing, Non-Toxic, Comfortable Pain Distress: None Mental Status: Positive for: Alert and Oriented X 3 Finger Stick Blood Glucose: 133 Medical Decision Making ED Course and Treatment: 09/29/16 11:17 Impression: An 80 year old male who presents after a witnessed syncopal episode in the wound care center. The patient states that prior to fainting her felt nauseous and sweaty. On exam, patient asymptomatic and clean dressing over lower extremity wounds in place. Pt has no focal neurological deficits and is in no distress. Plan: -- Chest X-ray -- Blood Culture -- Labs -- Reassess and disposition Progress Notes: EKG: Ordered, reviewed, and independently interpreted the EKG. Rate : 68 BPM Rhythm : A- Fib Interpretation : No ST-segment elevations Comparison : No change in comparison to 06/27/2016 09/29/16 12:24 Patient's previous records reviewed, patient was admitted last on 06/27/2016. Patient was diagnosed with acute DVT. Patient was also anemic at that time hemoglobin 7.6. Patient was signed out AGAINST MEDICAL ADVICE by sibling. Hemoglobin 6.6 today, will transfuse. 09/29/16 12:[address] Garcia, accepted admission to tele pt aware of and agrees with plan in no distress at this time and denies complaints consent signed Chest X-ray Dictator : Quinten Cheung MD Report Date : 09/29/2016 13:28:47 IMPRESSION: Mild vascular congestion. Minimal infiltrate right lung base. - Lab Interpretations Lab Results: 09/29/16 12:00 09/29/16 12:00 Lab Results 09/29/16 12:00: Sodium 140, Potassium 4.5, Chloride 107, Carbon Dioxide 22, Anion Gap 16, BUN 17, Creatinine 1.3, Est GFR ( Amer) > 60, Est GFR (Non- Af Amer) 53, Random Glucose 106, Calcium 9.0, Total Bilirubin 0.5, AST 21, ALT 21, Alkaline Phosphatase 60, Lactate Dehydrogenase 511, Total Creatine Kinase 72 , Troponin I < 0.01, Total Protein 7.5, Albumin 3.8, Globulin 3.7, Albumin/ Globulin Ratio 1.0 L 09/29/16 12:00: PT 12.7 H, INR 1.18 H, APTT 28.0 09/29/16 12:00: WBC 10.3 D, RBC 2.29 L, Hgb 6.6 L*, Hct 20.8 L*, MCV 90.8, MCH 28.8, MCHC 31.7, RDW 18.3 H, Plt Count 167, MPV 9.0, Gran % 82.5 H, Lymph % ( Auto) 9.3 L, [place] % (Auto) 6.9 H, Eos % (Auto) 1.1 L, Baso % (Auto) 0.2, Gran # 8.47 H, Lymph # 1.0 L, [place] # 0.7 H, Eos # 0.1, Baso # 0.02 I have reviewed the lab results: Yes - RAD Interpretation Radiology Orders: 09/29/16 11:21 CHEST PORTABLE [RAD] Stat - Medication Orders Current Medication Orders: Discontinued Medications Sodium Chloride (Sodium Chloride 0.9%) 1,000 mls @ 1,000 mls/hr IV .Q1H STA Stop: 09/29/16 13:34 Pantoprazole Sodium (Protonix Inj) 40 mg IVP STAT STA Stop: 09/29/16 12:36 - Scribe Statement The provider has reviewed the documentation as recorded by the Luis Mibe Carolyn Alfred Provider Scribe Attestation: All medical record entries made by the Scribe were at my direction and personally dictated by me. I have reviewed the chart and agree that the record accurately reflects my personal performance of the history, physical exam, medical decision making, and the department course for this patient. I have also personally directed, reviewed, and agree with the discharge instructions and disposition. Disposition/Present on Arrival - Present on Arrival Any Indicators Present on Arrival: No History of DVT/PE: Yes History of Uncontrolled Diabetes: No Urinary Catheter: No History of Decub. Ulcer: No History Surgical Site Infection Following: None - Disposition Have Diagnosis and Disposition been Completed?: Yes Diagnosis: Anemia Disposition: HOSPITALIZED Disposition Time: 12:45 Patient Plan: Admission Patient Problems: Current Active Problems Problem Status Onset Anemia Acute Condition: FAIR
[2016-09-29 12:12] LABS: BASO # 0.02 K/mm3 (0.0-2.0); BASO % 0.2 % (0.0-3.0); EOS # 0.1 (0.0-0.7); EOS % 1.1 % (1.5-5.0); GRAN # 8.47 (1.4-6.5); GRAN % 82.5 % (50.0-68.0); LYMPH % 9.3 % (22.0-35.0); MEAN CELL VOLUME 90.8 fl (80.0-105.0); MEAN CORPUSCULAR HEMOGLOBIN 28.8 pg (25.0-35.0); MEAN CORPUSCULAR HGB CONC 31.7 g/dl (31.0-37.0); MONO # 0.7 (0.1-0.6); MONO % 6.9 % (1.0-6.0); RED CELL DISTRIBUTION WIDTH 18.3 % (11.5-14.5); WHITE BLOOD COUNT 10.3 10^3/ul (4.5-11.0)
[2016-09-29 12:15] LABS: HEMATOCRIT 20.8 % (42.0-52.0)
[2016-09-29 12:21] LABS: INR 1.18 (0.93-1.08)
[2016-09-29 12:29] LABS: ALKALINE PHOSPHATASE 60 U/L (38-133); ALT/SGPT 21 U/L (7-56); AST/SGOT 21 U/L (15-59); BILIRUBIN,TOTAL 0.5 mg/dL (0.2-1.3); BLOOD UREA NITROGEN 17 mg/dL (7-21); CARBON DIOXIDE 22 mmol/L (21-33); CHLORIDE 107 mmol/L (98-107); GFR AFRICAN-AMERICAN > 60; GLUCOSE,RANDOM 106 mg/dL (70-110); POTASSIUM 4.5 mmol/L (3.6-5.0); SODIUM 140 mmol/L (132-148); TOTAL PROTEIN 7.5 g/dL (5.8-8.3)
[2016-09-29] MEDS ORDERED: Sodium Chloride 0.9% 1,000 ML IV STA (12:35)
[2016-09-29 12:40] LABS: TROPONIN I < 0.01 ng/mL
--- NOTE | 2016-09-29 13:30 | RAD ---
HISTORY: cough COMPARISON: 06/27/2016 FINDINGS: LUNGS: Mild vascular congestion. Minimal infiltrate right lung base PLEURA: No significant pleural effusion identified, no pneumothorax apparent. CARDIOVASCULAR: Moderate cardiomegaly OSSEOUS STRUCTURES: No significant abnormalities. VISUALIZED UPPER ABDOMEN: Normal. OTHER FINDINGS: None. IMPRESSION: Mild vascular congestion. Minimal infiltrate right lung base
[2016-09-29 14:17] LABS: IRON 32 ug/dL (45-180)
[2016-09-29 14:32] LABS: CHOLESTEROL 171 mg/dL (130-200)
--- NOTE | 2016-09-29 16:05 | CP.PCM.HP ---
<TeodoraSofi - Last Filed: 09/29/16 15:59> History of Present Illness - History of Present Illness History of Present Illness: History and Physical for Dr. Gracia 80 yo M who was brought to the ED from the wound center for evaluation of a near -syncopal episode that occurred earlier today. Patient states that he was getting his LLE wound dressed by his smocking machine operator, Dr. Hill, when he felt a sudden onset of generalized weakness followed by blurry vision. Patient denies LOC, but according to BOATHOUSE KEEPER, pt had an episode of hypotension (85/52) and AMS. Pt was given O2, IVF, and was brought to the ED. He states that his symptoms have since resolved, and he now has no complaints. He states that he does not usually eat breakfast, and this morning, only had a glass of milk with his medications. Denies headache, lightheadedness, chest pain, SOB, abdominal pain , N/V/D, or weakness at this time. In the ED today, patient received IVF NS, Protonix, had labs, EKG, and CXR ordered, and pRBC ordered for transfusion (Hgb 6.6). Pt was admitted to [facility] in June 2016 for LE ulcerations and weakness, when he was found to have LLE DVTs, and anemia (Hgb 7.6) requiring transfusion. Pt subsequently signed out AMA, because his family wanted him to receive care from his own oncologist at [facility]. Pt states that he had a colonoscopy done a few weeks at [facility] after he was admitted for evaluation of rectal bleeding. He does not know the results. Pt is a poor historian. Spoke with pt's sister and daughter who reported additional history. Sister states that on the pt's colonoscopy, there was a polyp that was removed. Will follow medical release for further history. PMD: Dr. Wynn Oncologist: Dr. 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 Denies chest pain, palpitations Resp: Denies SOB GI: Denies abdominal pain, N/V/D. States that he has BM regularly. : Denies dysuria, hematuria, urinary retention MSK: Denies peripheral edema Neuro: Denies focal weakness, headaches, dizziness Endocrine: (+) recent weight loss PE: General: Pt is an elderly, male, nontoxic appearing, in no acute distress, AAOx3 Head: Normocephalic, atraumatic Skin: Warm, dry, other than LLE (see below) HEENT: (+) arcus senilis b/l. PERRL, EOMI, mucous membranes moist. CV: Irregularly irregular, S1/S2, no murmurs, gallops, rubs. Resp: Lungs CTA b/l, no rales, rhonchi, wheezes GI: Abdomen soft, nondistended, nontender. : Malodorous urine Extremities: No pitting edema noted bilaterally. Wound dressings to LLE, palpable distal pulses. Neuro: CN2-12 intact. Answering questions appropriately without difficulty. Psych: Normal affect, normal mood. DIAGNOSTICS CXR: Mild vascular congestion, minimal infiltrate RLL EKG: Afib Labs: Present on Admission - Present on Admission Any Indicators Present on Admission: Yes History of DVT/PE: Yes History of Uncontrolled Diabetes: No Urinary Catheter: No Decubitus Ulcer Present: No Past Patient History - Infectious Disease Hx of Infectious Diseases: None - Tetanus Immunizations Tetanus Immunization: Unknown - Past Medical History & Family History Past Medical History?: Yes - Past Social History Smoking Status: Former Smoker - CARDIAC Hx Cardiac Disorders: Yes Hx Congestive Heart Failure: Yes Hx Hypertension: Yes - PULMONARY Hx Respiratory Disorders: Yes Hx Lung Cancer: Yes Other/Comment: Former smoker - NEUROLOGICAL Hx Neurological Disorder: No - HEENT Hx HEENT Problems: No - RENAL Hx Chronic Kidney Disease: No - ENDOCRINE/METABOLIC Hx Endocrine Disorders: No - HEMATOLOGICAL/ONCOLOGICAL Hx Blood Disorders: No Hx AIDS: No - INTEGUMENTARY Hx Dermatological Problems: Yes Other/Comment: BLE wounds - tx by Dr Hill - MUSCULOSKELETAL/RHEUMATOLOGICAL Hx Musculoskeletal Disorders: Yes Hx Falls: Yes - GASTROINTESTINAL Hx Gastrointestinal Disorders: No - GENITOURINARY/GYNECOLOGICAL Hx Genitourinary Disorders: No Hx Reproductive Disorders: No - PSYCHIATRIC Hx Psychophysiologic Disorder: No Hx Substance Use: No - SURGICAL HISTORY Hx Amputation: Yes (tramatic left hand amputation) - ANESTHESIA Hx Anesthesia: Yes Meds Allergies/Adverse Reactions: Allergies Allergy/AdvReac Type Severity Reaction Status Date / Time No Known Allergies Allergy Verified 09/29/16 19:25 Physical Exam - Constitutional Appears: Non-toxic, No Acute Distress - Head Exam Head Exam: NORMAL INSPECTION - Eye Exam Eye Exam: EOMI, Normal appearance - ENT Exam ENT Exam: Mucous Membranes Moist - Neck Exam Neck exam: Positive for: Full Rom, Normal Inspection. Negative for: Tenderness - Respiratory Exam Respiratory Exam: NORMAL BREATHING PATTERN. absent: Accessory Muscle Use, Respiratory Distress - Cardiovascular Exam Cardiovascular Exam: Tachycardia, Irregular Rhythm. absent: Bradycardia - GI/Abdominal Exam GI & Abdominal Exam: Normal Bowel Sounds, Soft. absent: Tenderness - Neurological Exam Neurological exam: Alert Additional comments: patient walks with cane and walker at home - Psychiatric Exam Psychiatric exam: Normal Affect, Normal Mood - Skin Skin Exam: Dry, Intact, Normal Color, Warm Results - Vital Signs Recent Vital Signs: Last Vital Signs Temp 97.9 F 09/29/16 15:23 Pulse 58 L 09/29/16 15:23 Resp 18 09/29/16 15:23 BP 117/55 L 09/29/16 15:23 Pulse Ox 96 09/29/16 11:21 - Labs Result Diagrams: 09/29/16 12:00 09/29/16 12:00 Labs: Laboratory Results - last 24 hr 09/29/16 09/29/16 13:00 13:00 Triglycerides 87 Cholesterol 171 LDL Cholesterol Direct 105 HDL Cholesterol 32 Blood Type A POSITIVE Antibody Screen Negative Crossmatch See Detail BBK History Checked Patient has bt Assessment & Plan - Assessment and Plan (Free Text) Assessment: 80 M Presents with near syncopal episode witnessed by woundcare center staff/ nursing. BOATHOUSE KEEPER called this morning. 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 Near syncope - f/u CT head - IV fluids 2. Anemia - transfuse 2 unit pRBCs (1 unit, lasix pm dose, 1 unit PRBC) - trend H&H - [facility] 3. h/o squamous cell lung Ca (with metastasis) - oncology consult (Dr. White) - palliative care consult (Dr. Gramajo) 4. h/o afib - cardio consult (Dr. Holt) 5. h/o DVT - ?meds 6. LLE ulcer - podiatry consult (Dr. Hill) 09/29 CXR: congestion (cephalization and mild right lower lobe congestion) f/u Pro Calcitonin f/u BNP GI PPX: Protonix DVT PPX: held for possible bleed Diet: HHD obtain Code Status from family Sofi DO Teodora PGY1 discussed with Dr. Gracia - Date & Time Date: 09/29/16 Time: 16:08 <Shannon Gracia - Last Filed: 09/30/16 08:09> Results - Vital Signs Recent Vital Signs: Last Vital Signs Temp 98.2 F 09/30/16 00:00 Pulse 66 09/30/16 01:14 Resp 29 H 09/30/16 01:14 BP 141/80 09/30/16 01:00 Pulse Ox 97 09/29/16 18:40 - Labs Result Diagrams: 09/30/16 05:45 09/30/16 05:45 Labs: Laboratory Results - last 24 hr 09/29/16 09/29/16 09/29/16 13:00 13:00 14:21 WBC RBC Hgb Hct MCV MCH MCHC RDW Plt Count MPV Gran % Lymph % (Auto) Ballard % (Auto) Eos % (Auto) Baso % (Auto) Gran # Lymph # Ballard # Eos # Baso # Sodium Potassium Chloride Carbon Dioxide Anion Gap BUN Creatinine Est GFR ( Amer) Est GFR (Non-Af Amer) Random Glucose Calcium Total Bilirubin AST ALT Alkaline Phosphatase NT-Pro-B Natriuret Pep 962 H Total Protein Albumin Globulin Albumin/Globulin Ratio Triglycerides 87 Cholesterol 171 LDL Cholesterol Direct 105 HDL Cholesterol 32 Procalcitonin Blood Type A POSITIVE Antibody Screen Negative Crossmatch See Detail BBK History Checked Patient has bt 09/29/16 09/30/16 09/30/16 14:29 00:50 05:45 WBC 8.2 D 8.1 RBC 3.35 L 3.48 L Hgb 10.0 L D 10.2 L Hct 30.1 L 31.1 L MCV 89.9 89.4 MCH 29.9 29.3 MCHC 33.2 32.8 RDW 17.5 H 17.7 H Plt Count 153 148 MPV 9.5 8.7 Gran % 78.7 H 80.9 H Lymph % (Auto) 10.6 L 8.7 L Ballard % (Auto) 8.2 H 8.3 H Eos % (Auto) 2.0 1.9 Baso % (Auto) 0.5 0.2 Gran # 6.45 6.55 H Lymph # 0.9 L 0.7 L Ballard # 0.7 H 0.7 H Eos # 0.2 0.2 Baso # 0.04 0.02 Sodium Potassium Chloride Carbon Dioxide Anion Gap BUN Creatinine Est GFR ( Amer) Est GFR (Non-Af Amer) Random Glucose Calcium Total Bilirubin AST ALT Alkaline Phosphatase NT-Pro-B Natriuret Pep Total Protein Albumin Globulin Albumin/Globulin Ratio Triglycerides Cholesterol LDL Cholesterol Direct HDL Cholesterol Procalcitonin < 0.05 L Blood Type Antibody Screen Crossmatch BBK History Checked 09/30/16 05:45 WBC RBC Hgb Hct MCV MCH MCHC RDW Plt Count MPV Gran % Lymph % (Auto) Ballard % (Auto) Eos % (Auto) Baso % (Auto) Gran # Lymph # Ballard # Eos # Baso # Sodium 142 Potassium 3.9 Chloride 107 Carbon Dioxide 25 Anion Gap 14 BUN 15 Creatinine 1.2 Est GFR ( Amer) > 60 Est GFR (Non-Af Amer) 58 Random Glucose 99 Calcium 8.9 Total Bilirubin 1.2 AST 29 ALT 15 Alkaline Phosphatase 68 NT-Pro-B Natriuret Pep Total Protein 7.7 Albumin 3.9 Globulin 3.8 Albumin/Globulin Ratio 1.0 L Triglycerides Cholesterol LDL Cholesterol Direct HDL Cholesterol Procalcitonin Blood Type Antibody Screen Crossmatch BBK History Checked Attending/Attestation - Attestation I have personally seen and examined this patient.: Yes I have fully participated in the care of the patient.: Yes I have reviewed all pertinent clinical information: Yes Notes (Text): 09/29/16 80 year old male with past medical history of Afib, CAD, cardiomyopathy, hypertension, metastatic squamous cell lung cancer, DVT s/p IVC filter and chronic leg wound presented from wound care center after presyncopal episode. CT head was ordered. He was found to have significant anemia with hemoglobin of 6.6. He reports he is on anticoagulation with eliquis which will be on hold for now. He also reports he had a recent colonoscopy at [facility]. Will attempt to obtain records. Will transfuse 2 units of prbc. Anemia workup is ordered. Hematology/oncology and cardiology evaluations are requested. We will request podiatry follow up was well. Shannon Gracia MD Hospitalist.
[2016-09-29] MEDS ORDERED: Iohexol 350 MG/100 ML VIAL ONE (16:30)
--- NOTE | 2016-09-29 17:04 | CARD ---
APPROVED REPORT EKG Measurement Heart [id number] <Conclusion> Atrial fibrillation Low voltage QRS Cannot rule out Anteroseptal infarct, age undetermined Abnormal ECG
[2016-09-29 17:42] LABS: FOLATE 3.8 ng/mL
[2016-09-29] MEDS ORDERED: Potassium Chloride 20 mEq ER Tab PO SCH (18:00)
--- NOTE | 2016-09-29 18:33 | CT ---
PROCEDURE: CT scan brain dated 09/29/2016. . HISTORY: syncopal episode COMPARISON: None available. TECHNIQUE: Axial computed tomography images were obtained through the head/brain without intravenous contrast. Radiation dose: Total exam DLP = 725.84 mGy-cm. This CT exam was performed using one or more of the following dose reduction techniques: Automated exposure control, adjustment of the mA and/or kV according to patient size, and/or use of iterative reconstruction technique. FINDINGS: HEMORRHAGE: No acute parenchymal, subarachnoid nor extra-axial hemorrhage. BRAIN: Mild diffuse/confluent chronic white matter ischemic changes. 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 . Moderate to significant generalized volume loss. Vascular calcifications both carotid siphons VENTRICLES: No obstructive hydrocephalus. CALVARIUM: There are no acute calvarial fractures. PARANASAL SINUSES: Unremarkable as visualized. No significant inflammatory changes. MASTOID AIR CELLS: Unremarkable as visualized. No inflammatory changes. OTHER FINDINGS: Changes of right-sided cataract surgery. IMPRESSION: No acute intracranial hemorrhage. 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 Mild chronic white matter ischemic changes. Moderate to significant generalized volume loss.
[2016-09-29 22:12] VITALS: BMI 27.2
[2016-09-29] MEDS ORDERED: Pneumococcal 23-Valent Vaccine IM ONE (22:12)
[2016-09-30 01:39] LABS: BASO # 0.04 K/mm3 (0.0-2.0); BASO % 0.5 % (0.0-3.0); EOS # 0.2 (0.0-0.7); GRAN # 6.45 (1.4-6.5); GRAN % 78.7 % (50.0-68.0); HEMATOCRIT 30.1 % (42.0-52.0); LYMPH # 0.9 (1.2-3.4); LYMPH % 10.6 % (22.0-35.0); MEAN CELL VOLUME 89.9 fl (80.0-105.0); MEAN CORPUSCULAR HEMOGLOBIN 29.9 pg (25.0-35.0); MEAN CORPUSCULAR HGB CONC 33.2 g/dl (31.0-37.0); MEAN PLATELET VOLUME 9.5 fl (7.0-11.0); MONO # 0.7 (0.1-0.6); MONO % 8.2 % (1.0-6.0); RED CELL DISTRIBUTION WIDTH 17.5 % (11.5-14.5); WHITE BLOOD COUNT 8.2 10^3/ul (4.5-11.0)
[2016-09-30 06:27] LABS: BASO # 0.02 K/mm3 (0.0-2.0); BASO % 0.2 % (0.0-3.0); EOS # 0.2 (0.0-0.7); EOS % 1.9 % (1.5-5.0); GRAN # 6.55 (1.4-6.5); GRAN % 80.9 % (50.0-68.0); HEMATOCRIT 31.1 % (42.0-52.0); LYMPH # 0.7 (1.2-3.4); LYMPH % 8.7 % (22.0-35.0); MEAN CELL VOLUME 89.4 fl (80.0-105.0); MEAN CORPUSCULAR HEMOGLOBIN 29.3 pg (25.0-35.0); MEAN CORPUSCULAR HGB CONC 32.8 g/dl (31.0-37.0); MEAN PLATELET VOLUME 8.7 fl (7.0-11.0); MONO # 0.7 (0.1-0.6); MONO % 8.3 % (1.0-6.0); RED CELL DISTRIBUTION WIDTH 17.7 % (11.5-14.5); WHITE BLOOD COUNT 8.1 10^3/ul (4.5-11.0)
[2016-09-30 06:50] LABS: ALKALINE PHOSPHATASE 68 U/L (38-133); ALT/SGPT 15 U/L (7-56); AST/SGOT 29 U/L (15-59); BILIRUBIN,TOTAL 1.2 mg/dL (0.2-1.3); BLOOD UREA NITROGEN 15 mg/dL (7-21); CALCIUM 8.9 mg/dL (8.4-10.5); CARBON DIOXIDE 25 mmol/L (21-33); CHLORIDE 107 mmol/L (98-107); GFR AFRICAN-AMERICAN > 60; GLUCOSE,RANDOM 99 mg/dL (70-110); POTASSIUM 3.9 mmol/L (3.6-5.0); SODIUM 142 mmol/L (132-148); TOTAL PROTEIN 7.7 g/dL (5.8-8.3)
[2016-09-30] MEDS: Potassium Chloride 20 mEq ER Tab PO SCH (09:27)
[2016-09-30] MEDS: Hydrocerin(120 gm) TOP SCH (09:37)
--- NOTE | 2016-09-30 09:45 | CP.PCM.CON ---
History of Present Illness - History of Present Illness History of Present Illness: Palliative consult requested by Dr Jaelyn Gracia Reason: Advance care planning HPI:80 year old male with history of metastatic lung cancer, stasis ulcer of lower extremities who became weak. CT of head no acute intracranial hemorrhage, old right occipitoparietal watershed infarct, chronic white matter ischemic changes. Chest x ray sowed mild vascular congestion, minimal infiltrate RLL. Found to be severely anemic, Hgb 6.6,BNP 652, Procalcitonin 0.05 PMHx: metastatic squamous cell lung cancer, receiving chemotherapy, s/p palliative RT to thoracic spine,rectal bleeding, DVT, PVD, CAD, cardiomyopathy, chronic lower extremity stats ulcers, CVA. Family History: Sibling had lung cancer. Social History: Former heavy smoker, occasional alcohol, no illicit drug use. Retired, live alone, siblings are supportive. Advance Care Planning: The patient does not have an Advanced Directive. He requests to be DNR/DNI. Review of Systems: As per HPI, a 12 point review of systems is otherwise negative. Past Patient History - Infectious Disease Hx of Infectious Diseases: None - Tetanus Immunizations Tetanus Immunization: Unknown - Past Medical History & Family History Past Medical History?: Yes - Past Social History Smoking Status: Former Smoker - CARDIAC Hx Cardiac Disorders: Yes (CARDIOMYOPATHY,CAD DC) Hx Cardia Arrhythmia: Yes (AFIB) Hx Congestive Heart Failure: Yes Hx Hypertension: Yes Hx Peripheral Vascular Disease: Yes (DVT LEFT LEG WITH IVC FILTER) - PULMONARY Hx Respiratory Disorders: Yes (SMOKED CIGARS AND PIPE) Other/Comment: Former smoker - NEUROLOGICAL Hx Neurological Disorder: No - HEENT Hx HEENT Problems: No - RENAL Hx Chronic Kidney Disease: No - ENDOCRINE/METABOLIC Hx Endocrine Disorders: No - HEMATOLOGICAL/ONCOLOGICAL Hx Blood Disorders: Yes (THROMBOCYTOPENIA) Hx AIDS: No Hx Anemia: Yes (BLOOD TRANSFUSION) Hx Cancer: Yes (LUNG MASS WITH METS TO BONE,SQUAMOUS CELL CA.) Hx Chemotherapy: Yes Hx Metastesis: Yes (BONES) - INTEGUMENTARY Hx Dermatological Problems: Yes Other/Comment: BLE wounds - tx by Dr Hill-CELLULITIS - MUSCULOSKELETAL/RHEUMATOLOGICAL Hx Musculoskeletal Disorders: Yes Hx Falls: Yes Hx Unsteady Gait: Yes (CANE) - GASTROINTESTINAL Hx Gastrointestinal Disorders: Yes (COLONOSCOPY-POLYPS REMOVED) Other/Comment: RECTAL BLEED - GENITOURINARY/GYNECOLOGICAL Hx Genitourinary Disorders: No - PSYCHIATRIC Hx Psychophysiologic Disorder: No Hx Substance Use: No - SURGICAL HISTORY Hx Surgeries: (DVT TO LEFT LEG WITH IVC FILTER) Hx Amputation: Yes (traumatic left 3,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) - ANESTHESIA Hx Anesthesia: Yes Meds Allergies/Adverse Reactions: Allergies Allergy/AdvReac Type Severity Reaction Status Date / Time No Known Allergies Allergy Verified 09/29/16 19:25 - Medications Medications: Current Medications Amiodarone HCl (Cordarone) 200 mg PO BID [facility] Last Admin: 09/30/16 09:27 Dose: 200 mg Carvedilol (Coreg) 3.125 mg PO BID [facility] Last Admin: 09/30/16 09:27 Dose: 3.125 mg Furosemide (Lasix) 40 mg PO BID [facility] Last Admin: 09/30/16 09:25 Dose: 40 mg Isosorbide Mononitrate (Imdur) 60 mg PO DAILY [facility] Last Admin: 09/30/16 09:25 Dose: 60 mg Multi-Ingredient Cream (Hydrocerin Cream) 0 ea TOP DAILY [facility] Mupirocin (Bactroban Ointment) 0 gm TOP BID [facility] Pantoprazole Sodium (Protonix Inj) 40 mg IVP DAILY [facility] Last Admin: 09/30/16 09:25 Dose: 40 mg Potassium Chloride (K-Dur 20 Meq Er Tab) 20 meq PO DAILY [facility] Last Admin: 09/30/16 09:27 Dose: 20 meq Physical Exam - Constitutional Appears: No Acute Distress, Chronically Ill - Head Exam Head Exam: NORMOCEPHALIC - Eye Exam Eye Exam: Normal appearance, PERRL - ENT Exam ENT Exam: Mucous Membranes Moist, Normal Oropharynx - Neck Exam Neck exam: Positive for: Normal Inspection - Respiratory Exam Respiratory Exam: Decreased Breath Sounds, Wheezes, NORMAL BREATHING PATTERN - Cardiovascular Exam Cardiovascular Exam: REGULAR RHYTHM, +S1, +S2, Systolic Murmur - GI/Abdominal Exam GI & Abdominal Exam: Normal Bowel Sounds, Soft - Extremities Exam Additional comments: venous stasis of lower extremities, left leg is bandaged - Back Exam Back exam: NORMAL INSPECTION - Neurological Exam Neurological exam: Alert, Oriented x3 - Skin Skin Exam: Dry, Warm - Additional Findings Additional findings: Palliative performance scale rating 50 % Results - Vital Signs Recent Vital Signs: Last Vital Signs Temp 98.1 F 09/30/16 08:00 Pulse 74 09/30/16 09:27 Resp 29 H 09/30/16 01:14 BP 148/76 09/30/16 09:27 Pulse Ox 97 09/29/16 18:40 - Labs Result Diagrams: 10/01/16 06:45 10/01/16 06:45 Labs: Laboratory Results - last 24 hr 09/29/16 09/29/16 09/29/16 13:00 13:00 14:21 WBC RBC Hgb Hct MCV MCH MCHC RDW Plt Count MPV Gran % Lymph % (Auto) [place] % (Auto) Eos % (Auto) Baso % (Auto) Gran # Lymph # [place] # Eos # Baso # Sodium Potassium Chloride Carbon Dioxide Anion Gap BUN Creatinine Est GFR ( Amer) Est GFR (Non-Af Amer) Random Glucose Calcium Total Bilirubin AST ALT Alkaline Phosphatase NT-Pro-B Natriuret Pep 962 H Total Protein Albumin Globulin Albumin/Globulin Ratio Triglycerides 87 Cholesterol 171 LDL Cholesterol Direct 105 HDL Cholesterol 32 Procalcitonin Blood Type A POSITIVE Antibody Screen Negative Crossmatch See Detail BBK History Checked Patient has bt 09/29/16 09/30/16 09/30/16 14:29 00:50 05:45 WBC 8.2 D 8.1 RBC 3.35 L 3.48 L Hgb 10.0 L D 10.2 L Hct 30.1 L 31.1 L MCV 89.9 89.4 MCH 29.9 29.3 MCHC 33.2 32.8 RDW 17.5 H 17.7 H Plt Count 153 148 MPV 9.5 8.7 Gran % 78.7 H 80.9 H Lymph % (Auto) 10.6 L 8.7 L [place] % (Auto) 8.2 H 8.3 H Eos % (Auto) 2.0 1.9 Baso % (Auto) 0.5 0.2 Gran # 6.45 6.55 H Lymph # 0.9 L 0.7 L [place]cock # 0.7 H 0.7 H Eos # 0.2 0.2 Baso # 0.04 0.02 Sodium Potassium Chloride Carbon Dioxide Anion Gap BUN Creatinine Est GFR ( Amer) Est GFR (Non-Af Amer) Random Glucose Calcium Total Bilirubin AST ALT Alkaline Phosphatase NT-Pro-B Natriuret Pep Total Protein Albumin Globulin Albumin/Globulin Ratio Triglycerides Cholesterol LDL Cholesterol Direct HDL Cholesterol Procalcitonin < 0.05 L Blood Type Antibody Screen Crossmatch BBK History Checked 09/30/16 05:45 WBC RBC Hgb Hct MCV MCH MCHC RDW Plt Count MPV Gran % Lymph % (Auto) [place] % (Auto) Eos % (Auto) Baso % (Auto) Gran # Lymph # [place] # Eos # Baso # Sodium 142 Potassium 3.9 Chloride 107 Carbon Dioxide 25 Anion Gap 14 BUN 15 Creatinine 1.2 Est GFR ( Amer) > 60 Est GFR (Non-Af Amer) 58 Random Glucose 99 Calcium 8.9 Total Bilirubin 1.2 AST 29 ALT 15 Alkaline Phosphatase 68 NT-Pro-B Natriuret Pep Total Protein 7.7 Albumin 3.9 Globulin 3.8 Albumin/Globulin Ratio 1.0 L Triglycerides Cholesterol LDL Cholesterol Direct HDL Cholesterol Procalcitonin Blood Type Antibody Screen Crossmatch BBK History Checked Assessment & Plan - Assessment and Plan (Free Text) Assessment: 80 year old male with history of metastatic lung cancer, severe venous stasis, CAD, CVA, who was admitted with near-syncopal episode, hypotension , AMS and anemia. The patient is known to me form previous admission. He was a DNR/DNI at that time. He was discharged before completing a POLST. The patient is alert and oriented. He remembers our previous discussion regarding resuscitation status. He affirms that he does not want CPR/ intubation.. He states he is actively receiving chemotherapy treatment of his lung cancer at [facility]. He intends to continue treatments for as long as he is able to do so. His brother /sisters are very supportive. His daughter is also supportive but she does not live close by. He states that his brother takes him to his doctors appointments. POLST discussed. Time spent in goals of care/advance care planning discussion, 35 minutes Plan: Advance care planning DNR/DNI
[2016-09-30] MEDS ORDERED: Potassium Chloride 20 mEq ER Tab PO SCH (10:00)
--- NOTE | 2016-09-30 10:27 | CP.PCM.CON ---
<Estela Higginbotham - Last Filed: 09/30/16 10:22> History of Present Illness - History of Present Illness History of Present Illness: 80 year old male patient with PMHx of ID, CAD, cardiomyopathy, DVT, s/p IVC filter, PVD was seen at bedside this morning with attending Dr. Minor for follow up of left ankle ulcers. Patient is AAO x 3. Patietn is well nown to podiatry. The patient previously had bilateral chronic leg ulcers which have healed over time but presents with recurrent ulcer to medial aspect of left ankle. Patient denies of any leg pains when resting. Patent denies of N/V/F/C or SOB today Past Patient History - Infectious Disease Hx of Infectious Diseases: None - Tetanus Immunizations Tetanus Immunization: Unknown - Past Medical History & Family History Past Medical History?: Yes - Past Social History Smoking Status: Former Smoker - CARDIAC Hx Cardiac Disorders: Yes (CARDIOMYOPATHY,CAD ID) Hx Cardia Arrhythmia: Yes (AFIB) Hx Congestive Heart Failure: Yes Hx Hypertension: Yes Hx Peripheral Vascular Disease: Yes (DVT LEFT LEG WITH IVC FILTER) - PULMONARY Hx Respiratory Disorders: Yes (SMOKED CIGARS AND PIPE) Other/Comment: Former smoker - NEUROLOGICAL Hx Neurological Disorder: No - HEENT Hx HEENT Problems: No - RENAL Hx Chronic Kidney Disease: No - ENDOCRINE/METABOLIC Hx Endocrine Disorders: No - HEMATOLOGICAL/ONCOLOGICAL Hx Blood Disorders: Yes (THROMBOCYTOPENIA) Hx AIDS: No Hx Anemia: Yes (BLOOD TRANSFUSION) Hx Cancer: Yes (LUNG MASS WITH METS TO BONE,SQUAMOUS CELL CA.) Hx Chemotherapy: Yes Hx Metastesis: Yes (BONES) - INTEGUMENTARY Hx Dermatological Problems: Yes Other/Comment: BLE wounds - tx by Dr Hill-CELLULITIS - MUSCULOSKELETAL/RHEUMATOLOGICAL Hx Musculoskeletal Disorders: Yes Hx Falls: Yes Hx Unsteady Gait: Yes (CANE) - GASTROINTESTINAL Hx Gastrointestinal Disorders: Yes (COLONOSCOPY-POLYPS REMOVED) Other/Comment: RECTAL BLEED - GENITOURINARY/GYNECOLOGICAL Hx Genitourinary Disorders: No - PSYCHIATRIC Hx Psychophysiologic Disorder: No Hx Substance Use: No - SURGICAL HISTORY Hx Surgeries: (DVT TO LEFT LEG WITH IVC FILTER) Hx Amputation: Yes (traumatic left 3,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) - ANESTHESIA Hx Anesthesia: Yes Meds Allergies/Adverse Reactions: Allergies Allergy/AdvReac Type Severity Reaction Status Date / Time No Known Allergies Allergy Verified 09/29/16 19:25 - Medications Medications: Current Medications Amiodarone HCl (Cordarone) 200 mg PO BID [facility] Last Admin: 09/30/16 09:27 Dose: 200 mg Carvedilol (Coreg) 3.125 mg PO BID [facility] Last Admin: 09/30/16 09:27 Dose: 3.125 mg Furosemide (Lasix) 40 mg PO BID [facility] Last Admin: 09/30/16 09:25 Dose: 40 mg Isosorbide Mononitrate (Imdur) 60 mg PO DAILY [facility] Last Admin: 09/30/16 09:25 Dose: 60 mg Multi-Ingredient Cream (Hydrocerin Cream) 0 ea TOP DAILY [facility] Last Admin: 09/30/16 09:37 Dose: 1 dose Mupirocin (Bactroban Ointment) 0 gm TOP BID [facility] Last Admin: 09/30/16 09:37 Dose: 1 dose Pantoprazole Sodium (Protonix Inj) 40 mg IVP DAILY [facility] Last Admin: 09/30/16 09:25 Dose: 40 mg Potassium Chloride (K-Dur 20 Meq Er Tab) 20 meq PO DAILY [facility] Last Admin: 09/30/16 09:27 Dose: 20 meq Physical Exam - Constitutional Appears: Well, Non-toxic, No Acute Distress - Head Exam Head Exam: ATRAUMATIC - Extremities Exam Additional comments: Bilateral lower extremity exam DERM: Open ulceration noted to medial aspect of left ankle at the level of malleolus measuring 5cm x 2.5cm x 0.3cm with fibrotic base. No clinical sign of acute infection is noted. No drainage noted. No purulent discharge noted. No PTB VASC: Non-palpable DP and PT noted bilaterally. 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 NEURO: Diminished sensation noted bilaterally upon protective sensation exam with monofilament - Neurological Exam Neurological exam: Alert, Oriented x3 - Psychiatric Exam Psychiatric exam: Normal Affect, Normal Mood - Skin Skin Exam: Normal Color, Warm Results - Vital Signs Recent Vital Signs: Last Vital Signs Temp 98.1 F 09/30/16 08:00 Pulse 74 09/30/16 09:27 Resp 29 H 09/30/16 01:14 BP 148/76 09/30/16 09:27 Pulse Ox 97 09/29/16 18:40 - Labs Result Diagrams: 09/30/16 05:45 09/30/16 05:45 Labs: Laboratory Results - last 24 hr 09/29/16 09/29/16 09/29/16 13:00 13:00 14:21 WBC RBC Hgb Hct MCV MCH MCHC RDW Plt Count MPV Gran % Lymph % (Auto) [place] % (Auto) Eos % (Auto) Baso % (Auto) Gran # Lymph # [place] # Eos # Baso # Sodium Potassium Chloride Carbon Dioxide Anion Gap BUN Creatinine Est GFR ( Amer) Est GFR (Non-Af Amer) Random Glucose Calcium Total Bilirubin AST ALT Alkaline Phosphatase NT-Pro-B Natriuret Pep 962 H Total Protein Albumin Globulin Albumin/Globulin Ratio Triglycerides 87 Cholesterol 171 LDL Cholesterol Direct 105 HDL Cholesterol 32 Procalcitonin Blood Type A POSITIVE Antibody Screen Negative Crossmatch See Detail BBK History Checked Patient has bt 09/29/16 09/30/16 09/30/16 14:29 00:50 05:45 WBC 8.2 D 8.1 RBC 3.35 L 3.48 L Hgb 10.0 L D 10.2 L Hct 30.1 L 31.1 L MCV 89.9 89.4 MCH 29.9 29.3 MCHC 33.2 32.8 RDW 17.5 H 17.7 H Plt Count 153 148 MPV 9.5 8.7 Gran % 78.7 H 80.9 H Lymph % (Auto) 10.6 L 8.7 L [place] % (Auto) 8.2 H 8.3 H Eos % (Auto) 2.0 1.9 Baso % (Auto) 0.5 0.2 Gran # 6.45 6.55 H Lymph # 0.9 L 0.7 L [place] # 0.7 H 0.7 H Eos # 0.2 0.2 Baso # 0.04 0.02 Sodium Potassium Chloride Carbon Dioxide Anion Gap BUN Creatinine Est GFR ( Amer) Est GFR (Non-Af Amer) Random Glucose Calcium Total Bilirubin AST ALT Alkaline Phosphatase NT-Pro-B Natriuret Pep Total Protein Albumin Globulin Albumin/Globulin Ratio Triglycerides Cholesterol LDL Cholesterol Direct HDL Cholesterol Procalcitonin < 0.05 L Blood Type Antibody Screen Crossmatch BBK History Checked 09/30/16 05:45 WBC RBC Hgb Hct MCV MCH MCHC RDW Plt Count MPV Gran % Lymph % (Auto) [place] % (Auto) Eos % (Auto) Baso % (Auto) Gran # Lymph # [place] # Eos # Baso # Sodium 142 Potassium 3.9 Chloride 107 Carbon Dioxide 25 Anion Gap 14 BUN 15 Creatinine 1.2 Est GFR ( Amer) > 60 Est GFR (Non-Af Amer) 58 Random Glucose 99 Calcium 8.9 Total Bilirubin 1.2 AST 29 ALT 15 Alkaline Phosphatase 68 NT-Pro-B Natriuret Pep Total Protein 7.7 Albumin 3.9 Globulin 3.8 Albumin/Globulin Ratio 1.0 L Triglycerides Cholesterol LDL Cholesterol Direct HDL Cholesterol Procalcitonin Blood Type Antibody Screen Crossmatch BBK History Checked Assessment & Plan - Assessment and Plan (Free Text) Assessment: 80 y/o male seen at bedside for Left medial ankle venous stasis ulceration Plan: patient evaluated and chart reviewed seen at bedside with attending Dr. Hill labs and vitals reviewed Bactroban ordered Left ankle wound dressed with iodosorb, Silvadene and DSD continue IV abx as per ID podiatry will continue to monitor while patient remains in house <Mary Hill - Last Filed: 10/10/16 19:38> Results - Vital Signs Recent Vital Signs: Last Vital Signs Temp 98.5 F 10/01/16 18:00 Pulse 68 10/01/16 18:31 Resp 20 10/01/16 18:00 BP 115/70 10/01/16 18:04 Pulse Ox 95 10/01/16 06:00 - Labs Result Diagrams: 10/01/16 06:45 10/01/16 06:45 Attending/Attestation - Attestation I have personally seen and examined this patient.: Yes I have fully participated in the care of the patient.: Yes I have reviewed all pertinent clinical information: Yes
--- NOTE | 2016-09-30 15:09 | CON ---
DATE: 09/30/2016 INDICATIONS: Near syncope, chronic atrial fib, lung cancer with metastatic disease. HISTORY OF PRESENT ILLNESS: This is an 80-year-old man known to me, admitted yesterday when he had a near syncopal episode while in the Wound Center. This was witnessed by Dr. Hill and the staff. He briefly felt weak with blurry vision. Initially, he was hypotensive. He responded to supplemental oxygen, IV fluids. He was found to be anemic. He was given blood transfusions. Subsequently, he has remained stable in the intensive care unit and feels well this morning. There is no chest pain, shortness of breath, orthopnea, PND, syncope, presyncope, lightheadedness, dizziness, vertigo, palpitation, fever, chills, cough, sputum production, hemoptysis, abdominal pain, nausea, vomiting, diarrhea, or constipation. He does have chronic dyspnea on exertion, chronic lower extremity edema with wounds and recent evaluation for rectal bleeding and anemia. He is undergoing chemotherapy and x-ray therapy for squamous cell lung cancer at [facility]. 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 He has moderate pulmonary hypertension and mild MR and TR. He has chronic atrial fibrillation, currently on Eliquis. He has a history of DVT with an IVC filter placed. He has chronic venous insufficiency, peripheral arterial disease, chronic kidney disease. 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 CURRENT MEDICATIONS AT THE TIME OF ADMISSION: Include amiodarone, Coreg, Eliquis, Imdur, Lasix, potassium supplementation. ALLERGIES: THERE ARE NO KNOWN MEDICATION ALLERGIES. SOCIAL HISTORY: He lives in senior housing. He is assisted by his family. He is an intermittent smoker. He does not drink currently. He has difficulty with ambulation. FAMILY HISTORY: Notable for heart disease and atrial fibrillation. REVIEW OF SYSTEMS: A 10-point review of systems is otherwise unremarkable except as noted above. PHYSICAL EXAMINATION: GENERAL: He is a well-developed male, in no acute distress, lying in bed in the intensive care unit. VITAL SIGNS: Notable for atrial fibrillation at 66 to 98 beats per minute. He is afebrile. Blood pressure 141/80, respirations 18, O2 sat 97% on nasal cannula. HEENT: Reveals neck vein distention. No thyromegaly. No carotid bruit. Mucous membranes moist. Conjunctivae pale. NECK: Supple. LUNGS: Lung jacobo, scattered rhonchi. HEART: Revealed an irregular rhythm. Normal first and second heart sounds. Systolic murmur along the left sternal border. ABDOMEN: Soft. Bowel sounds present. No mass, organomegaly, tenderness. No CVA tenderness. No palpable abdominal aortic aneurysm. EXTREMITIES: Revealed chronic edema. Legs bandaged. NEUROLOGIC: Awake and alert. PSYCHIATRIC: Normal as to mood and affect. SKIN: Warm and dry. LABORATORY DATA AND IMAGING: EKG demonstrates atrial fibrillation, poor R wave progression, mild nonspecific ST wave changes. Chest x-ray reveals mild vascular congestion, minimal infiltrate right lung base. White count normal. Hemoglobin initially 6.6, repeat 10.2. Hematocrit initially 20.8, repeat 31.1. Platelet count normal. PT, INR and PTT unremarkable. Electrolytes; BUN, creatinine, blood sugar, LFTs, CK, troponin all are unremarkable. BNP 962, cholesterol 171, LDL 105, triglyceride 87, HDL 32. IMPRESSION: The patient is an 80-year-old man who had a near syncopal episode while undergoing wound care in the Wound Center. He was severely anemic. He is undergoing radiation therapy and chemotherapy for a metastatic squamous cell carcinoma of the lung. He has multiple medical problems including chronic atrial fibrillation, hypertension, pulmonary hypertension, deep vein thrombosis, venous insufficiency, PAD and severe anemia. PLAN: At this time, I agree with current plan. He has been transfused. He has had no further syncope. I resumed his oral medications including amiodarone, Coreg, isosorbide, Lasix, potassium. He is having podiatric followup for his wounds. He is under the care of oncologist at [facility]. He is being seen by the palliative care service. Stool will be checked for occult blood. We should obtain the results of his recent colonoscopy. H and H will be monitored. He will be transfer to a telemetry bed. He can be out of bed to a chair. I will review his all records. I will follow along with you. I will make additional recommendations based on his clinical course. Overall a conservative course of cardiac care is anticipated. Bryce Holt MD
[2016-09-30 17:27] VITALS: RESP 20
--- NOTE | 2016-09-30 19:16 | CP.PCM.PN ---
<TeodoraSofi - Last Filed: 09/30/16 19:30> Subjective - Date & Time of Evaluation Date of Evaluation: 09/30/16 Time of Evaluation: 19:15 - Subjective Subjective: Progress Note for Dr. Gracia PT S&E at bedside at ICU with teamJacque JACQUES. Dr. Holt saw the patient and stated patient is clear for transfer to telemetry. Dr. Holt resumed oral medications including amiodarone, coreg, isosorbide, lasix and potassium. Podiatry team came to see the patient for Dr. Hill, patient's left ankle wound at medial malleolus was redressed at bedside. Patient states he feels okay. He stated that overnight, he felt that he had wheezing and felt taht he had mucus build up. Objective - Vital Signs/Intake and Output Vital Signs (last 24 hours): Temp Pulse Resp BP Pulse Ox 97.4 F L 82 20 117/68 94 L 09/30/16 17:26 09/30/16 18:00 09/30/16 17:26 09/30/16 17:26 09/30/16 15:20 Intake and Output: 09/30/16 10/01/16 18:59 06:59 Output Total 1000 Balance -1000 - Medications Medications: Current Medications Amiodarone HCl (Cordarone) 200 mg PO BID [facility] Last Admin: 09/30/16 17:18 Dose: 200 mg Carvedilol (Coreg) 3.125 mg PO BID [facility] Last Admin: 09/30/16 17:22 Dose: 3.125 mg Furosemide (Lasix) 40 mg PO BID [facility] Last Admin: 09/30/16 17:21 Dose: 40 mg Isosorbide Mononitrate (Imdur) 60 mg PO DAILY [facility] Last Admin: 09/30/16 09:25 Dose: 60 mg Multi-Ingredient Cream (Hydrocerin Cream) 0 ea TOP DAILY [facility] Last Admin: 09/30/16 09:37 Dose: 1 dose Mupirocin (Bactroban Ointment) 0 gm TOP BID [facility] Last Admin: 09/30/16 17:27 Dose: 1 dose Pantoprazole Sodium (Protonix Inj) 40 mg IVP DAILY [facility] Last Admin: 09/30/16 09:25 Dose: 40 mg Potassium Chloride (K-Dur 20 Meq Er Tab) 20 meq PO DAILY [facility] Last Admin: 09/30/16 09:27 Dose: 20 meq - Labs Labs: 09/30/16 05:45 09/30/16 05:45 PT 12.7 Seconds (9.9-11.8) H 09/29/16 12:00 INR 1.18 (0.93-1.08) H 09/29/16 12:00 APTT 28.0 Seconds (23.7-30.8) 09/29/16 12:00 - Constitutional Appears: Non-toxic, No Acute Distress - Head Exam Head Exam: NORMAL INSPECTION - Eye Exam Eye Exam: EOMI, Normal appearance - ENT Exam ENT Exam: Mucous Membranes Moist - Neck Exam Neck Exam: Full ROM - Respiratory Exam Respiratory Exam: NORMAL BREATHING PATTERN. absent: Accessory Muscle Use, Respiratory Distress - Cardiovascular Exam Cardiovascular Exam: Irregular Rhythm, +S1, +S2. absent: Bradycardia, Tachycardia - GI/Abdominal Exam GI & Abdominal Exam: Soft, Normal Bowel Sounds. absent: Tenderness - Extremities Exam Extremities Exam: Normal Inspection. absent: Pedal Edema - Neurological Exam Neurological Exam: Awake, Normal Gait - Psychiatric Exam Psychiatric exam: Normal Affect, Normal Mood - Skin Skin Exam: Dry, Normal Color, Warm Assessment and Plan - Assessment and Plan (Free Text) Assessment: 80 M Presents with near syncopal episode witnessed by woundcare center staff/ nursing. PMH Squamous cell lung CA on chemo, CAD, MS, DVT, IVC filter, atrial fibrillation, cardiomyopathy, HTN Plan: 1. Near syncope - f/u CT head - IV fluids 2. Anemia - transfuse 2 unit pRBCs (1 unit, lasix pm dose, 1 unit PRBC) - trend H&H - obtained records from [facility] (colonoscopy done, polyp removed and area was injected with epinephrine. no source of active bleeding found) - hold Eliquis 3. h/o squamous cell lung Ca (with metastasis) - oncology consult (Dr. White) - palliative care consult (Dr. Gramajo) 4. h/o afib - cardio consult (Dr. Holt) - Dr. Holt continued home meds sans Eliquis. PT is clear for transfer to telemetry. Dr. Holt resumed oral medications including amiodarone, coreg, isosorbide, lasix and potassium. 5. h/o DVT Eliquis on hold 6. LLE ulcer - podiatry consult (Dr. Hill) 09/29 CXR: congestion (cephalization and mild right lower lobe congestion) f/u Pro Calcitonin f/u BNP GI PPX: Protonix DVT PPX: held for possible bleed Diet: HHD obtain Code Status from family Sofi AraizaDO PGY1 discussed with Dr. Gracia Per Palliative Care VIKA DanielsN: Patient does not have an Advanced Directive. He requests to be DNR/DNI <Shannon Gracia - Last Filed: 10/01/16 07:39> Objective - Vital Signs/Intake and Output Vital Signs (last 24 hours): Temp Pulse Resp BP Pulse Ox 98.8 F 80 20 105/65 95 10/01/16 06:00 10/01/16 06:00 10/01/16 06:00 10/01/16 06:00 10/01/16 06:00 Intake and Output: 10/01/16 10/01/16 06:59 18:59 Intake Total 140 Output Total 400 Balance -260 - Medications Medications: Current Medications Amiodarone HCl (Cordarone) 200 mg PO BID [facility] Last Admin: 09/30/16 17:18 Dose: 200 mg Carvedilol (Coreg) 3.125 mg PO BID [facility] Last Admin: 09/30/16 17:22 Dose: 3.125 mg Furosemide (Lasix) 40 mg PO BID [facility] Last Admin: 09/30/16 17:21 Dose: 40 mg Isosorbide Mononitrate (Imdur) 60 mg PO DAILY [facility] Last Admin: 09/30/16 09:25 Dose: 60 mg Multi-Ingredient Cream (Hydrocerin Cream) 0 ea TOP DAILY [facility] Last Admin: 09/30/16 09:37 Dose: 1 dose Mupirocin (Bactroban Ointment) 0 gm TOP BID [facility] Last Admin: 09/30/16 17:27 Dose: 1 dose Pantoprazole Sodium (Protonix Ec Tab) 40 mg PO 0600 [facility] Last Admin: 10/01/16 05:31 Dose: 40 mg Potassium Chloride (K-Dur 20 Meq Er Tab) 20 meq PO DAILY [facility] Last Admin: 09/30/16 09:27 Dose: 20 meq - Labs Labs: 10/01/16 06:45 10/01/16 06:45 PT 12.7 Seconds (9.9-11.8) H 09/29/16 12:00 INR 1.18 (0.93-1.08) H 09/29/16 12:00 APTT 28.0 Seconds (23.7-30.8) 09/29/16 12:00 Attending/Attestation - Attestation I have personally seen and examined this patient.: Yes I have fully participated in the care of the patient.: Yes I have reviewed all pertinent clinical information, including history, physical exam and plan: Yes Notes (Text): 09/30/16 80 year old male with past medical history of Afib, CAD, cardiomyopathy, hypertension, metastatic squamous cell lung cancer, DVT s/p IVC filter and chronic leg wound who presented from wound care center after presyncopal episode. CT head was done. He was found to have significant anemia with hemoglobin of 6.6 which has improved to 10.2 after 2 units of prbc transfusion. His eliquis which he states he was taking for history of DVT is currently on hold. Hematology evaluation was requested. Will also request for GI evaluation. Recent colonoscopy reviewed in which a polyp was removed. Cardiology evaluation was also appreciated who resumed his home medications. Continue with wound care as per podiatry. Shannon Gracia MD Hospitalist.
[2016-10-01] MEDS ORDERED: Pantoprazole 40 mg EC Tab PO SCH (06:00)
--- NOTE | 2016-10-01 06:34 | CP.PCM.PN ---
Subjective - Date & Time of Evaluation Date of Evaluation: 09/30/16 Time of Evaluation: 20:00 - Subjective Subjective: NOTE WILL BE DICTATED MULTIFACTORIAL ANEMIA - IRON DEFICIENCY CONTRIBUTING CONSIDER IV IRON IN THIS ORAL IRON INTOLERANT PATIENT. SUGGEST: RETIC COUNT AND SERUM ELECTROPHORESIS GI EVAL AND R/O BLOOD LOSS. Objective - Vital Signs/Intake and Output Vital Signs (last 24 hours): Temp Pulse Resp BP Pulse Ox 98.2 F 63 20 110/63 98 10/01/16 00:01 10/01/16 02:00 10/01/16 00:01 10/01/16 00:01 10/01/16 00:01 Intake and Output: 09/30/16 10/01/16 18:59 06:59 Output Total 1000 Balance -1000 - Medications Medications: Current Medications Amiodarone HCl (Cordarone) 200 mg PO BID [facility] Last Admin: 09/30/16 17:18 Dose: 200 mg Carvedilol (Coreg) 3.125 mg PO BID [facility] Last Admin: 09/30/16 17:22 Dose: 3.125 mg Furosemide (Lasix) 40 mg PO BID [facility] Last Admin: 09/30/16 17:21 Dose: 40 mg Isosorbide Mononitrate (Imdur) 60 mg PO DAILY [facility] Last Admin: 09/30/16 09:25 Dose: 60 mg Multi-Ingredient Cream (Hydrocerin Cream) 0 ea TOP DAILY [facility] Last Admin: 09/30/16 09:37 Dose: 1 dose Mupirocin (Bactroban Ointment) 0 gm TOP BID [facility] Last Admin: 09/30/16 17:27 Dose: 1 dose Pantoprazole Sodium (Protonix Ec Tab) 40 mg PO 0600 [facility] Last Admin: 10/01/16 05:31 Dose: 40 mg Potassium Chloride (K-Dur 20 Meq Er Tab) 20 meq PO DAILY [facility] Last Admin: 09/30/16 09:27 Dose: 20 meq - Labs Labs: 09/30/16 05:45 09/30/16 05:45 PT 12.7 Seconds (9.9-11.8) H 09/29/16 12:00 INR 1.18 (0.93-1.08) H 09/29/16 12:00 APTT 28.0 Seconds (23.7-30.8) 09/29/16 12:00
[2016-10-01 07:02] VITALS: O2SAT 95
[2016-10-01 07:12] LABS: BASO # 0.02 K/mm3 (0.0-2.0); BASO % 0.3 % (0.0-3.0); EOS # 0.2 (0.0-0.7); EOS % 3.5 % (1.5-5.0); GRAN # 4.52 (1.4-6.5); GRAN % 71.7 % (50.0-68.0); HEMATOCRIT 30.9 % (42.0-52.0); LYMPH # 0.9 (1.2-3.4); MEAN CELL VOLUME 89.3 fl (80.0-105.0); MEAN CORPUSCULAR HEMOGLOBIN 29.5 pg (25.0-35.0); MEAN PLATELET VOLUME 8.9 fl (7.0-11.0); MONO # 0.7 (0.1-0.6); MONO % 10.5 % (1.0-6.0); RED CELL DISTRIBUTION WIDTH 17.6 % (11.5-14.5); WHITE BLOOD COUNT 6.3 10^3/ul (4.5-11.0)
[2016-10-01 07:18] LABS: ALKALINE PHOSPHATASE 64 U/L (38-133); ALT/SGPT 22 U/L (7-56); AST/SGOT 21 U/L (15-59); BILIRUBIN,TOTAL 1.1 mg/dL (0.2-1.3); BLOOD UREA NITROGEN 15 mg/dL (7-21); CALCIUM 8.8 mg/dL (8.4-10.5); CARBON DIOXIDE 24 mmol/L (21-33); CHLORIDE 106 mmol/L (98-107); GFR AFRICAN-AMERICAN > 60; GLUCOSE,RANDOM 95 mg/dL (70-110); POTASSIUM 3.9 mmol/L (3.6-5.0); SODIUM 139 mmol/L (132-148); TOTAL PROTEIN 7.4 g/dL (5.8-8.3)
--- NOTE | 2016-10-01 08:11 | CP.PCM.PN ---
Subjective - Date & Time of Evaluation Date of Evaluation: 10/01/16 Time of Evaluation: 07:00 - Subjective Subjective: Stable on 2R. No CP or SOB. No dizziness or syncope. V/S noted. AF PE: Lungs: few rhonchi Cor.: irreg, S1S2 Abd: soft Ext.: + edema, chronic skin changes Neuro.: alert I/O= 140/1400 Labs: H/H= 10.2/31 BC x2 NG at 24 hrs. Stool for OB: Neg. Objective - Vital Signs/Intake and Output Vital Signs (last 24 hours): Temp Pulse Resp BP Pulse Ox 98.8 F 80 20 105/65 95 10/01/16 06:00 10/01/16 06:00 10/01/16 06:00 10/01/16 06:00 10/01/16 06:00 Intake and Output: 10/01/16 10/01/16 06:59 18:59 Intake Total 140 Output Total 400 Balance -260 - Medications Medications: Current Medications Amiodarone HCl (Cordarone) 200 mg PO BID [facility] Last Admin: 09/30/16 17:18 Dose: 200 mg Carvedilol (Coreg) 3.125 mg PO BID [facility] Last Admin: 09/30/16 17:22 Dose: 3.125 mg Furosemide (Lasix) 40 mg PO BID [facility] Last Admin: 09/30/16 17:21 Dose: 40 mg Isosorbide Mononitrate (Imdur) 60 mg PO DAILY [facility] Last Admin: 09/30/16 09:25 Dose: 60 mg Multi-Ingredient Cream (Hydrocerin Cream) 0 ea TOP DAILY [facility] Last Admin: 09/30/16 09:37 Dose: 1 dose Mupirocin (Bactroban Ointment) 0 gm TOP BID [facility] Last Admin: 09/30/16 17:27 Dose: 1 dose Pantoprazole Sodium (Protonix Ec Tab) 40 mg PO 0600 [facility] Last Admin: 10/01/16 05:31 Dose: 40 mg Potassium Chloride (K-Dur 20 Meq Er Tab) 20 meq PO DAILY [facility] Last Admin: 09/30/16 09:27 Dose: 20 meq - Labs Labs: 10/01/16 06:45 10/01/16 06:45 PT 12.7 Seconds (9.9-11.8) H 09/29/16 12:00 INR 1.18 (0.93-1.08) H 09/29/16 12:00 APTT 28.0 Seconds (23.7-30.8) 09/29/16 12:00 Assessment and Plan - Assessment and Plan (Free Text) Assessment: Syncope Anemia H/O GIB/S/P colonic polypectomy Metastatic lung cancer, mets to spine and ribs Chronic AF, was on Eliquis Chronic LE edema and wound Remote [place] but Nl LV fx. on echo HBP PH, mod. DVT/IVC Filter Veous insufficiency PAD CKD Remote traumatic amputation fingers left hand Smoker DNR/DNI status Plan: Check postural V/S Heme and GI evals. Palliative Care Eval. Podiatry F/U Hold A/C/Grace for now OOB as mayra Monitor: I/O, H/H, labs, wounds, etc.
--- NOTE | 2016-10-01 09:27 | CP.PCM.PN ---
Subjective - Date & Time of Evaluation Date of Evaluation: 10/01/16 Time of Evaluation: 09:00 - Subjective Subjective: Alert, offers no complaints Objective - Vital Signs/Intake and Output Vital Signs (last 24 hours): Temp Pulse Resp BP Pulse Ox 98.8 F 80 20 105/65 95 10/01/16 06:00 10/01/16 06:00 10/01/16 06:00 10/01/16 06:00 10/01/16 06:00 Intake and Output: 10/01/16 10/01/16 06:59 18:59 Intake Total 140 Output Total 400 Balance -260 - Medications Medications: Current Medications Amiodarone HCl (Cordarone) 200 mg PO BID [facility] Last Admin: 09/30/16 17:18 Dose: 200 mg Carvedilol (Coreg) 3.125 mg PO BID [facility] Last Admin: 09/30/16 17:22 Dose: 3.125 mg Furosemide (Lasix) 40 mg PO BID [facility] Last Admin: 09/30/16 17:21 Dose: 40 mg Isosorbide Mononitrate (Imdur) 60 mg PO DAILY [facility] Last Admin: 09/30/16 09:25 Dose: 60 mg Multi-Ingredient Cream (Hydrocerin Cream) 0 ea TOP DAILY [facility] Last Admin: 09/30/16 09:37 Dose: 1 dose Mupirocin (Bactroban Ointment) 0 gm TOP BID [facility] Last Admin: 09/30/16 17:27 Dose: 1 dose Pantoprazole Sodium (Protonix Ec Tab) 40 mg PO 0600 [facility] Last Admin: 10/01/16 05:31 Dose: 40 mg Potassium Chloride (K-Dur 20 Meq Er Tab) 20 meq PO DAILY [facility] Last Admin: 09/30/16 09:27 Dose: 20 meq - Labs Labs: 10/01/16 06:45 10/01/16 06:45 PT 12.7 Seconds (9.9-11.8) H 09/29/16 12:00 INR 1.18 (0.93-1.08) H 09/29/16 12:00 APTT 28.0 Seconds (23.7-30.8) 09/29/16 12:00 - Constitutional Appears: No Acute Distress, Chronically Ill - Head Exam Head Exam: NORMAL INSPECTION - Eye Exam Eye Exam: Normal appearance, PERRL - ENT Exam ENT Exam: Mucous Membranes Moist - Neck Exam Neck Exam: Normal Inspection - Respiratory Exam Respiratory Exam: Decreased Breath Sounds, NORMAL BREATHING PATTERN - Cardiovascular Exam Cardiovascular Exam: REGULAR RHYTHM, +S1, +S2 - GI/Abdominal Exam GI & Abdominal Exam: Soft, Normal Bowel Sounds - Extremities Exam Additional comments: venous stasis of both lower extremities, left leg dressing dry and intact - Neurological Exam Neurological Exam: Alert, Oriented x3 - Skin Skin Exam: Dry, Warm Assessment and Plan - Assessment and Plan (Free Text) Assessment: 80 year old male with history of lung cancer,bone metastasis, venous stasis of lower extremities who was admitted with anemia. The patient and I discussed purpose of POLST yesterday. We completed POLST: DNR/ DNI form today. The patient expressed that he he understands that his cancer is not curable. He is considering stopping treatment for his cancer. His family is adamant that he continue to try. The patient still wishes to receive conservative medical interventions. He understands hospice services and feels he is not ready to accept hospice care at this time. Goals of care/advance care planning , time spent 40 minutes Plan: Palliative support /counseling Advance care planning, POLST: DNR/DNI
[2016-10-01] MEDS: Potassium Chloride 20 mEq ER Tab PO SCH (10:31)
[2016-10-01] MEDS: Hydrocerin(120 gm) TOP SCH (10:42)
--- NOTE | 2016-10-01 12:59 | CP.PCM.PN ---
<Estela Higginbotham - Last Filed: 10/01/16 12:56> Subjective - Date & Time of Evaluation Date of Evaluation: 10/01/16 Time of Evaluation: 10:00 - Subjective Subjective: 80 year old male patient was seen at bedside this morning for follow up of left ankle ulcers. Patient is AAO x 3. Patient is well known to podiatry. Dressing to Left ankle appears clean dry and intact. Patient denies of any leg pains when resting. Patent denies of N/V/F/C or SOB today Objective - Vital Signs/Intake and Output Vital Signs (last 24 hours): Temp Pulse Resp BP Pulse Ox 97.5 F L 61 20 110/62 95 10/01/16 12:00 10/01/16 12:00 10/01/16 12:00 10/01/16 12:00 10/01/16 06:00 Intake and Output: 10/01/16 10/01/16 06:59 18:59 Intake Total 140 Output Total 400 Balance -260 - Medications Medications: Current Medications Amiodarone HCl (Cordarone) 200 mg PO BID [facility] Last Admin: 10/01/16 10:31 Dose: 200 mg Carvedilol (Coreg) 3.125 mg PO BID [facility] Last Admin: 10/01/16 10:32 Dose: 3.125 mg Furosemide (Lasix) 40 mg PO BID [facility] Last Admin: 10/01/16 10:31 Dose: 40 mg Isosorbide Mononitrate (Imdur) 60 mg PO DAILY [facility] Last Admin: 10/01/16 10:32 Dose: 60 mg Multi-Ingredient Cream (Hydrocerin Cream) 0 ea TOP DAILY [facility] Last Admin: 10/01/16 10:42 Dose: 1 dose Mupirocin (Bactroban Ointment) 0 gm TOP BID [facility] Last Admin: 10/01/16 10:43 Dose: Not Given Pantoprazole Sodium (Protonix Ec Tab) 40 mg PO 0600 [facility] Last Admin: 10/01/16 05:31 Dose: 40 mg Potassium Chloride (K-Dur 20 Meq Er Tab) 20 meq PO DAILY [facility] Last Admin: 10/01/16 10:31 Dose: 20 meq - Labs Labs: 10/01/16 06:45 10/01/16 06:45 PT 12.7 Seconds (9.9-11.8) H 09/29/16 12:00 INR 1.18 (0.93-1.08) H 09/29/16 12:00 APTT 28.0 Seconds (23.7-30.8) 09/29/16 12:00 - Constitutional Appears: Well, Non-toxic, No Acute Distress - Extremities Exam Additional comments: Bilateral lower extremity exam DERM: Open ulceration noted to medial aspect of left ankle at the level of malleolus measuring 5cm x 2.5cm x 0.3cm with fibrotic base. No clinical sign of acute infection is noted. No drainage noted. No purulent discharge noted. No PTB VASC: Non-palpable DP and PT noted bilaterally. 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 Hill labs and vitals reviewed Left ankle wound dressed with Bactroban and DSD continue IV abx as per ID podiatry will continue to monitor while patient remains in house <Eric Godinez - Last Filed: 10/01/16 16:31> Objective - Vital Signs/Intake and Output Vital Signs (last 24 hours): Temp Pulse Resp BP Pulse Ox 97.5 F L 61 20 110/62 95 10/01/16 12:00 10/01/16 14:00 10/01/16 12:00 10/01/16 12:00 10/01/16 06:00 Intake and Output: 10/01/16 10/01/16 06:59 18:59 Intake Total 140 Output Total 400 Balance -260 - Medications Medications: Current Medications Amiodarone HCl (Cordarone) 200 mg PO BID [facility] Last Admin: 10/01/16 10:31 Dose: 200 mg Carvedilol (Coreg) 3.125 mg PO BID [facility] Last Admin: 10/01/16 10:32 Dose: 3.125 mg Furosemide (Lasix) 40 mg PO BID [facility] Last Admin: 10/01/16 10:31 Dose: 40 mg Heparin Sodium (Porcine) (Heparin) 5,000 units SC Q8 [facility] PRN Reason: Protocol Isosorbide Mononitrate (Imdur) 60 mg PO DAILY [facility] Last Admin: 10/01/16 10:32 Dose: 60 mg Multi-Ingredient Cream (Hydrocerin Cream) 0 ea TOP DAILY [facility] Last Admin: 10/01/16 10:42 Dose: 1 dose Mupirocin (Bactroban Ointment) 0 gm TOP BID [facility] Last Admin: 10/01/16 10:43 Dose: Not Given Pantoprazole Sodium (Protonix Ec Tab) 40 mg PO 0600 [facility] Last Admin: 10/01/16 05:31 Dose: 40 mg Potassium Chloride (K-Dur 20 Meq Er Tab) 20 meq PO DAILY [facility] Last Admin: 10/01/16 10:31 Dose: 20 meq - Labs Labs: 10/01/16 06:45 10/01/16 06:45 PT 12.7 Seconds (9.9-11.8) H 09/29/16 12:00 INR 1.18 (0.93-1.08) H 09/29/16 12:00 APTT 28.0 Seconds (23.7-30.8) 09/29/16 12:00 Attending/Attestation - Attestation I have personally seen and examined this patient.: Yes I have fully participated in the care of the patient.: Yes I have reviewed all pertinent clinical information, including history, physical exam and plan: Yes
--- NOTE | 2016-10-01 13:23 | CP.PCM.PN ---
<TeodoraSofi - Last Filed: 10/01/16 16:45> Subjective - Date & Time of Evaluation Date of Evaluation: 10/01/16 Time of Evaluation: 13:22 - Subjective Subjective: Progress Note for Dr. Gracia: Patient S&E at bedside. Patient states he feels the same. NAEON per nursing. Patient denies fever, chills, discomfort. Spoke with Daughter and Sister about the current plans. Reiterated that heme-oncology is consulted for anemia. Objective - Vital Signs/Intake and Output Vital Signs (last 24 hours): Temp Pulse Resp BP Pulse Ox 97.5 F L 61 20 110/62 95 10/01/16 12:00 10/01/16 12:00 10/01/16 12:00 10/01/16 12:00 10/01/16 06:00 Intake and Output: 10/01/16 10/01/16 06:59 18:59 Intake Total 140 Output Total 400 Balance -260 - Medications Medications: Current Medications Amiodarone HCl (Cordarone) 200 mg PO BID [facility] Last Admin: 10/01/16 10:31 Dose: 200 mg Carvedilol (Coreg) 3.125 mg PO BID [facility] Last Admin: 10/01/16 10:32 Dose: 3.125 mg Furosemide (Lasix) 40 mg PO BID [facility] Last Admin: 10/01/16 10:31 Dose: 40 mg Heparin Sodium (Porcine) (Heparin) 5,000 units SC Q8 [facility] PRN Reason: Protocol Isosorbide Mononitrate (Imdur) 60 mg PO DAILY [facility] Last Admin: 10/01/16 10:32 Dose: 60 mg Multi-Ingredient Cream (Hydrocerin Cream) 0 ea TOP DAILY [facility] Last Admin: 10/01/16 10:42 Dose: 1 dose Mupirocin (Bactroban Ointment) 0 gm TOP BID [facility] Last Admin: 10/01/16 10:43 Dose: Not Given Pantoprazole Sodium (Protonix Ec Tab) 40 mg PO 0600 [facility] Last Admin: 10/01/16 05:31 Dose: 40 mg Potassium Chloride (K-Dur 20 Meq Er Tab) 20 meq PO DAILY [facility] Last Admin: 10/01/16 10:31 Dose: 20 meq - Labs Labs: 10/01/16 06:45 10/01/16 06:45 PT 12.7 Seconds (9.9-11.8) H 09/29/16 12:00 INR 1.18 (0.93-1.08) H 09/29/16 12:00 APTT 28.0 Seconds (23.7-30.8) 09/29/16 12:00 - Constitutional Appears: Non-toxic, No Acute Distress - Head Exam Head Exam: NORMAL INSPECTION - Eye Exam Eye Exam: EOMI, Normal appearance - ENT Exam ENT Exam: Mucous Membranes Moist - Neck Exam Neck Exam: Full ROM - Respiratory Exam Respiratory Exam: Clear to Ausculation Bilateral, NORMAL BREATHING PATTERN. absent: Accessory Muscle Use, Respiratory Distress - Cardiovascular Exam Cardiovascular Exam: REGULAR RHYTHM. absent: Bradycardia, Tachycardia - GI/Abdominal Exam GI & Abdominal Exam: Firm, Soft, Normal Bowel Sounds - Extremities Exam Extremities Exam: Full ROM, Normal Capillary Refill, Normal Inspection - Neurological Exam Neurological Exam: Awake, Normal Gait - Skin Skin Exam: Dry, Normal Color, Warm Assessment and Plan - Assessment and Plan (Free Text) Assessment: 80 M Presents with near syncopal episode witnessed by woundcare center staff/ nursing. 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 Near syncope - f/u CT head - IV fluids 2. Anemia - transfuse 2 unit pRBCs (1 unit, lasix pm dose, 1 unit PRBC) - trend H&H - obtained records from [facility] (colonoscopy done, polyp removed and area was injected with epinephrine. no source of active bleeding found) - hold Eliquis - start Heparin 5,000 SC 3. h/o squamous cell lung Ca (with metastasis) - oncology consult (Dr. White) - palliative care consult (Dr. Gramajo) 4. h/o afib - cardio consult (Dr. Holt) - Dr. Holt continued home meds sans Eliquis. PT is clear for transfer to telemetry. Dr. Holt resumed oral medications including amiodarone, coreg, isosorbide, lasix and potassium. 5. h/o DVT Eliquis on hold start Heparin 5,000 SC 6. LLE ulcer - podiatry consult (Dr. Hill) 09/29 CXR: congestion (cephalization and mild right lower lobe congestion) f/u Pro Calcitonin f/u BNP GI PPX: Protonix DVT PPX: Heparin 5,000 SC Diet: HHD obtain Code Status from family discussed with Dr. Gracia Per Palliative Care Janelle Gramajo APN: Patient does not have an Advanced Directive. He requests to be DNR/DNI Sofi Araiza DO PGY1 <Shannon Gracia - Last Filed: 10/01/16 17:26> Objective - Vital Signs/Intake and Output Vital Signs (last 24 hours): Temp Pulse Resp BP Pulse Ox 97.5 F L 61 20 110/62 95 10/01/16 12:00 10/01/16 14:00 10/01/16 12:00 10/01/16 12:00 10/01/16 06:00 Intake and Output: 10/01/16 10/01/16 06:59 18:59 Intake Total 140 Output Total 400 Balance -260 - Medications Medications: Current Medications Amiodarone HCl (Cordarone) 200 mg PO BID [facility] Last Admin: 10/01/16 10:31 Dose: 200 mg Carvedilol (Coreg) 3.125 mg PO BID [facility] Last Admin: 10/01/16 10:32 Dose: 3.125 mg Furosemide (Lasix) 40 mg PO BID [facility] Last Admin: 10/01/16 10:31 Dose: 40 mg Heparin Sodium (Porcine) (Heparin) 5,000 units SC Q8 [facility] PRN Reason: Protocol Isosorbide Mononitrate (Imdur) 60 mg PO DAILY [facility] Last Admin: 10/01/16 10:32 Dose: 60 mg Multi-Ingredient Cream (Hydrocerin Cream) 0 ea TOP DAILY [facility] Last Admin: 10/01/16 10:42 Dose: 1 dose Mupirocin (Bactroban Ointment) 0 gm TOP BID [facility] Last Admin: 10/01/16 10:43 Dose: Not Given Pantoprazole Sodium (Protonix Ec Tab) 40 mg PO 0600 [facility] Last Admin: 10/01/16 05:31 Dose: 40 mg Potassium Chloride (K-Dur 20 Meq Er Tab) 20 meq PO DAILY [facility] Last Admin: 10/01/16 10:31 Dose: 20 meq - Labs Labs: 10/01/16 06:45 10/01/16 06:45 PT 12.7 Seconds (9.9-11.8) H 09/29/16 12:00 INR 1.18 (0.93-1.08) H 09/29/16 12:00 APTT 28.0 Seconds (23.7-30.8) 09/29/16 12:00 Attending/Attestation - Attestation I have personally seen and examined this patient.: Yes I have fully participated in the care of the patient.: Yes I have reviewed all pertinent clinical information, including history, physical exam and plan: Yes Notes (Text): 10/01/16 17:23 80 year old male with past medical history of Afib, CAD, cardiomyopathy, hypertension, metastatic squamous cell lung cancer, DVT s/p IVC filter and chronic leg wound who presented from wound care center after presyncopal episode. He was found to have significant anemia with hemoglobin of 6.6 which has improved to 10.2 after 2 units of prbc transfusion. His eliquis which he states he was taking for history of DVT was held due to acute anemia. Hematology and GI evaluations were requested. Recent colonoscopy reviewed in which a polyp was removed. Case was discussed with hematology; anemia may be due to chemo. Consider resuming eliquis if okay with GI/cardiology per heme. Will discuss with Dr. Cason and Dr. Holt. Continue with wound care as per podiatry. Shannon Gracia MD Hospitalist.
[2016-10-01 18:06] VITALS: BP 115/70
[2016-10-01 18:32] VITALS: PULSE 68
[2016-10-01 18:37] VITALS: TEMP 98.5
--- NOTE | 2016-10-02 10:57 | CP.PCM.DIS ---
Provider - Provider Date of Admission: 09/29/16 12:46 Attending physician: Shannon Gracia MD Primary care physician: NO PRIMARY CARE PROVIDER Time Spent in preparation of Discharge (in minutes): 20 Hospital Course - Lab Results Lab Results: Micro Results 09/29/16 18:36 Naris MRSA Culture (Admit) - Final MRSA NOT DETECTED Most Recent Lab Values WBC 6.3 10^3/ul (4.5-11.0) D 10/01/16 06:45 RBC 3.46 10^6/uL (3.5-6.1) L 10/01/16 06:45 Hgb 10.2 g/dL (14.0-18.0) L 10/01/16 06:45 Hct 30.9 % (42.0-52.0) L 10/01/16 06:45 MCV 89.3 fl (80.0-105.0) 10/01/16 06:45 MCH 29.5 pg (25.0-35.0) 10/01/16 06:45 MCHC 33.0 g/dl (31.0-37.0) 10/01/16 06:45 RDW 17.6 % (11.5-14.5) H 10/01/16 06:45 Plt Count 149 10^3/uL (120.0-450.0) 10/01/16 06:45 MPV 8.9 fl (7.0-11.0) 10/01/16 06:45 Gran % 71.7 % (50.0-68.0) H 10/01/16 06:45 Lymph % (Auto) 14.0 % (22.0-35.0) L 10/01/16 06:45 Major % (Auto) 10.5 % (1.0-6.0) H 10/01/16 06:45 Eos % (Auto) 3.5 % (1.5-5.0) 10/01/16 06:45 Baso % (Auto) 0.3 % (0.0-3.0) 10/01/16 06:45 Gran # 4.52 (1.4-6.5) 10/01/16 06:45 Lymph # 0.9 (1.2-3.4) L 10/01/16 06:45 Major # 0.7 (0.1-0.6) H 10/01/16 06:45 Eos # 0.2 (0.0-0.7) 10/01/16 06:45 Baso # 0.02 K/mm3 (0.0-2.0) 10/01/16 06:45 PT 12.7 Seconds (9.9-11.8) H 09/29/16 12:00 INR 1.18 (0.93-1.08) H 09/29/16 12:00 APTT 28.0 Seconds (23.7-30.8) 09/29/16 12:00 Sodium 139 mmol/L (132-148) 10/01/16 06:45 Potassium 3.9 mmol/L (3.6-5.0) 10/01/16 06:45 Chloride 106 mmol/L (98-107) 10/01/16 06:45 Carbon Dioxide 24 mmol/L (21-33) 10/01/16 06:45 Anion Gap 13 (10-20) 10/01/16 06:45 BUN 15 mg/dL (7-21) 10/01/16 06:45 Creatinine 1.1 mg/dL (0.5-1.4) 10/01/16 06:45 Est GFR ( Amer) > 60 10/01/16 06:45 Est GFR (Non-Af Amer) > 60 10/01/16 06:45 Random Glucose 95 mg/dL (70-110) 10/01/16 06:45 Calcium 8.8 mg/dL (8.4-10.5) 10/01/16 06:45 Iron 32 ug/dL (45-180) L 09/29/16 12:00 TIBC 216 ug/dL (261-462) L 09/29/16 12:00 % Saturation 15 % (20-55) L 09/29/16 12:00 Ferritin 409.0 ng/mL 09/29/16 11:30 Total Bilirubin 1.1 mg/dL (0.2-1.3) 10/01/16 06:45 AST 21 U/L (15-59) 10/01/16 06:45 ALT 22 U/L (7-56) 10/01/16 06:45 Alkaline Phosphatase 64 U/L (38-133) 10/01/16 06:45 Lactate Dehydrogenase 511 U/L (333-699) 09/29/16 12:00 Total Creatine Kinase 72 U/L (35-230) 09/29/16 12:00 Troponin I < 0.01 ng/mL 09/29/16 12:00 NT-Pro-B Natriuret Pep 962 pg/mL (0-450) H 09/29/16 14:21 Total Protein 7.4 g/dL (5.8-8.3) 10/01/16 06:45 Albumin 3.8 g/dL (3.0-4.8) 10/01/16 06:45 Globulin 3.7 gm/dL 10/01/16 06:45 Albumin/Globulin Ratio 1.0 (1.1-1.8) L 10/01/16 06:45 Triglycerides 87 mg/dL (35-160) 09/29/16 13:00 Cholesterol 171 mg/dL (130-200) 09/29/16 13:00 LDL Cholesterol Direct 105 mg/dL (0-129) 09/29/16 13:00 HDL Cholesterol 32 mg/dL (29-60) 09/29/16 13:00 Vitamin B12 802 pg/mL (239-931) 09/29/16 11:30 Folate 3.8 ng/mL 09/29/16 11:30 Procalcitonin < 0.05 NG/ML (0.19-0.49) L 09/29/16 14:29 Stool Occult Blood Negative (NEGATIVE) 09/30/16 15:25 Blood Type A POSITIVE 09/29/16 13:00 Antibody Screen Negative 09/29/16 13:00 Crossmatch See Detail 09/29/16 13:00 BBK History Checked Patient has bt 09/29/16 13:00 - Hospital Course Hospital Course: 80 year old male with past medical history of Afib, CAD, cardiomyopathy, hypertension, metastatic squamous cell lung cancer, DVT s/p IVC filter and chronic leg wound who presented from wound care center after presyncopal episode. He was found to have significant anemia with hemoglobin of 6.6 which has improved to 10.2 after 2 units of prbc transfusion. His eliquis which he states he was taking for history of DVT was held due to acute anemia. He was seen by hematology and cardiology. GI evaluation was pending. Recent colonoscopy reviewed in which a polyp was removed. Patient signed out against medical advice later in the evening. He was explained the risks of signing out AMA by the resident. Advised to follow up with pmd, GI, front office coordinator and oncologist. Prognosis is guarded. Shannon Gracia MD Hospitalist. Discharge Exam - Head Exam Additional comments: refer to exam on date of AMA from progness note Discharge Plan - Follow Up Plan Condition: GUARDED Disposition: AGAINST MEDICAL ADVICE Patient education suggested?: Yes Additional Instructions: Patient was advised that at his age and with the potential of anemia, mrsa, cva , the patient could have lasting neurological deficits, lasting pain, and could very likely from his symptoms. Patient and his family understood the risk and stated that they would like to get their medical care at [facility], which is where they would be going after leaving here. They did say that they would have to approve the transition with their aunt before going to [facility]. Referrals: PCP,NO [Primary Care Provider] -
== END 2016-10-01 21:15 | disposition left against medical advice (07) | DRG 812 ==
LOC: ED 10:55 → ERH 12:46 → CCU 18:17 → 2RSO 09-30 15:43
PROVIDERS: ADMIT Internal Medicine; ATTEND Internal Medicine
PROC: 30233N1 Transfusion of Nonautologous Red Blood Cells into Peripheral Vein, Percutaneous Approach (ICD-10-PCS; principal; 2016-09-29)
DX: D50.9 Iron deficiency anemia, unspecified (principal); C79.51 Secondary malignant neoplasm of bone; C34.90 Malignant neoplasm of unspecified part of unspecified bronchus or lung; L97.329 Non-pressure chronic ulcer of left ankle with unspecified severity; I42.9 Cardiomyopathy, unspecified; I13.0 Hypertensive heart and chronic kidney disease with heart failure and stage 1 through stage 4 chronic kidney disease, or unspecified chronic kidney disease; I50.9 Heart failure, unspecified; N18.9 Chronic kidney disease, unspecified; I48.2 Chronic atrial fibrillation; I25.10 Atherosclerotic heart disease of native coronary artery without angina pectoris; Z66 Do not resuscitate; I87.8 Other specified disorders of veins; F17.200 Nicotine dependence, unspecified, uncomplicated; I87.2 Venous insufficiency (chronic) (peripheral); I73.9 Peripheral vascular disease, unspecified; R55 Syncope and collapse; Z79.02 Long term (current) use of antithrombotics/antiplatelets; Z86.718 Personal history of other venous thrombosis and embolism; I25.2 Old myocardial infarction